=== PATIENT | female | born 1975 | race Caucasian/White ===

== ENCOUNTER 2018-11-29 20:00 | Emergency (ER) | payer SELFPAY ==
--- OUTSIDE RECORDS SUMMARY | 2018-11-29 20:02 | XMS REPORT ---
:1975 [facility] Address [address] [place] [address] [place] [id number] Care Team Providers Name Role Phone Unavailable Unavailable Unavailable Problems This patient has no known problems. Allergies, Adverse Reactions, Alerts This patient has no known allergies or adverse reactions. Medications This patient has no known medications.
[2018-11-29] MEDS ORDERED: NA CHLORIDE 0.9% 1,000 ML ONE (20:45)
[2018-11-29 21:03] LABS: Absolute Lymphocytes (CBC) 2.3 K/uL (0.7-4.9); Absolute Monocytes 0.6 K/uL (0.1-1.3); Absolute Neutrophil 2.7 K/uL (1.8-8.0); Basophils % 0.9 % (0-1.3); Eosinophils % 0.5 % (0-4.4); Hematocrit 28.4 % (36.0-45.0); MPV 8.6 fL (7.6-11.3); Monocytes % 11.1 % (3.3-12.3); RBC Red Blood Cell Count 3.82 M/uL (3.86-4.86)
--- NOTE | 2018-11-29 21:03 | RAD REPORT ---
EXAM DESCRIPTION: US - Transvaginal Study Probe - 11/29/2018 8:56 pm CLINICAL HISTORY: lower abdomen pain Pelvic pain. COMPARISON: <Comparisons> FINDINGS: The uterus is normal in size, shape and echotexture. The uterus measures 9.9 x 7.4 x 5.8 c m. Small 13 x 10 mm anterior wall intramural fibroid. Small fundal intramural fibroid measuring 6 x 6 mm. The endometrial stripe measures 10 mm, normal. Both ovaries are normal in size, shape and echotexture. The right ovary measures 3.5 x 3.0 x 2.5 cm. The left ovary measures 2.8 x 2.1 x 1.9 cm. 3 cm right ovarian follicle noted, likely functional. N o adnexal masses. Normal Doppler blood flow was demonstrated to both ovaries. No significant pelvic ascites. IMPRESSION: Mildly leiomyomatous uterus.
[2018-11-29 21:05] LABS: Protime INR 1.04
[2018-11-29 21:14] LABS: Albumin 3.9 g/dL (3.4-5.0); Bilirubin Direct 0.1 mg/dL (0-0.2); Bilirubin Total 0.5 mg/dL (0.2-1.0); Potassium 3.4 mmol/L (3.5-5.1); Protein, Total 7.3 g/dL (6.4-8.2)
[2018-11-29 21:26] LABS: Urine Bacteria <20 /HPF (<20); Urine Culture Reflex Order NOT NEEDED; Urine RBC >50 /HPF (NONE SEEN)
[2018-11-29 21:27] LABS: Urine Blood 3+ (NEG); Urine Glucose NEGATIVE (NEG); Urine Protein 1+ (NEG); Urine Specific Gravity <1.005 (1.005-1.030)
[2018-11-29 21:34] LABS: Barbiturates NEGATIVE (NEGATIVE); Benzodiazepines NEGATIVE (NEGATIVE); Cocaine NEGATIVE (NEGATIVE); METHAMPHETAM NEGATIVE (NEGATIVE); Methadone NEGATIVE (NEGATIVE); Opiates NEGATIVE (NEGATIVE); Phencyclidine NEGATIVE (NEGATIVE); THC Cannibis NEGATIVE (NEGATIVE)
--- NOTE | 2018-11-29 21:44 | EDPHYS ---
Physician Documentation [facility] Name: Yazmin Monzon Age: 43 yrs Sex: Female : 1975 Arrival Date: 11/29/2018 Time: 20:07 Bed 2 Private MD: ED Physician Justice Correa HPI: 11/29 20:30 This 43 yrs old Female presents to ER via EMS with complaints of Vaginal Pain.cp 20:30 The patient presents with vaginal bleeding that is with clots, lower abdomen pain. cp 20:30 Onset: The symptoms/episode began/occurred 2 day(s) ago. Associated signs and symptoms: cp Pertinent negatives: constipation, diarrhea, dysuria, fever, vomiting. Severity of symptoms: in the emergency department the symptoms are unchanged. The patient's method of control includes nothing. Patient brought to ED by law enforcement for heavy menstrual bleeding. Patient currently in custody for public intoxication. 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 - Social history:: Smoking status: Patient/guardian denies using tobacco. - Ebola Screening: : No symptoms or risks identified at this time. ROS: 20:45 Constitutional: Negative for body aches, chills, fever, poor PO intake. cp 20:45 Eyes: Negative for injury, pain, redness, and discharge. cp 20:45 Cardiovascular: Negative for chest pain, edema, palpitations. 20:45 Respiratory: Negative for cough, shortness of breath, wheezing. 20:45 Abdomen/GI: Positive for abdominal pain, of the right lower quadrant and left lower quadrant, Negative for vomiting, diarrhea, constipation. 20:45 Back: Negative for radiated pain. 20:45 : Positive for vaginal bleeding, Negative for urinary symptoms, flank pain. 20:45 Skin: Negative for rash. 20:45 Neuro: Negative for altered mental status, headache, syncope, weakness. 20:45 All other systems are negative. Exam: 20:50 Constitutional: The patient appears in no acute distress, alert, awake, non-toxic, well cp developed, well nourished. 20:50 Head/Face: Normocephalic, atraumatic. cp 20:50 Eyes: Periorbital structures: appear normal, Conjunctiva: normal, no exudate, no injection, Sclera: no appreciated abnormality, Lids and lashes: appear normal, bilaterally. 20:50 ENT: External ear(s): are unremarkable, Nose: is normal, Mouth: Lips: moist, Oral mucosa: moist, Posterior pharynx: Airway: no evidence of obstruction, patent. 20:50 Neck: ROM/movement: is normal, is supple, without pain, no range of motions limitations, no nuchal rigidity. 20:50 Chest/axilla: Inspection: normal, Palpation: is normal, no crepitus, no tenderness. 20:50 Cardiovascular: Rate: tachycardic, Rhythm: regular. 20:50 Respiratory: the patient does not display signs of respiratory distress, Respirations: normal, no use of accessory muscles, no retractions, no splinting, no tachypnea, labored breathing, is not present, Breath sounds: are clear throughout, no decreased breath sounds, no stridor, no wheezing. 20:50 Abdomen/GI: Inspection: abdomen appears normal, Bowel sounds: active, all quadrants, Palpation: soft, in all quadrants, nontender, in all quadrants, voluntary guarding, is not appreciated, involuntary guarding, is not appreciated. 20:50 Back: CVA tenderness, is absent. 20:50 Skin: no rash present. 20:50 Neuro: Orientation: to person, place, situation, Mentation: able to follow commands, Motor: moves all fours, strength is normal. Vital Signs: 20:07 BP 129 / 83; Pulse 106; Resp 16; Temp 98.2(O); Pulse Ox 100% on R/A; Weight 77.11 kg ak1 (R); Height 5 ft. 10 in. (177.80 cm) (R); Pain 8/10; 21:45 BP 109 / 71; Pulse 103; Resp 16; Temp 98.2; Pulse Ox 100% on R/A; Pain 0/10; ak1 22:08 BP 109 / 72; Pulse 103; Resp 16; Temp 98.1; Pulse Ox 100% on R/A; Pain 0/10; ak1 20:07 Body Mass Index 24.39 (77.11 kg, 177.80 cm) ak1 MDM: 20:18 Patient medically screened. cp 21:00 Differential diagnosis: dysmenorrhea, ectopic , menorrhea, nonspecific cp abdominal pain, pelvic inflammatory disease, uterine fibroids, anemia. 21:42 Data reviewed: vital signs, nurses notes, lab test result(s), radiologic studies, cp ultrasound, I have discussed the patient's presentation/case with the attending Emergency Department Physician; and as a result, I will discharge patient. 21:42 Counseling: I had a detailed discussion with the patient and/or guardian regarding: the cp historical points, exam findings, and any diagnostic results supporting the discharge/admit diagnosis, lab results, radiology results, the need for outpatient follow up, a family practitioner, to return to the emergency department if symptoms worsen or persist or if there are any questions or concerns that arise at home. Response to treatment: the patient's symptoms have markedly improved after treatment. 21:42 ED course: VSS. H/H shows anemia worse today when compared to previous labs but stable cp and not requiring blood transfusion. Will release into custody of law enforcement for continued monitoring and outpatient f/u. 11/29 20:10 Order name: Urine Microscopic Only; Complete Time: 21:31 11/29 21:31 Interpretation: Normal except: URBC >50; SQEPI 5-10. 11/29 20:27 Order name: Basic Metabolic Panel; Complete Time: 21:31 11/29 21:41 Interpretation: Normal except: K 3.4; GFR 85. 11/29 20:27 Order name: CBC with Diff; Complete Time: 21:31 11/29 21:41 Interpretation: Reviewed. 11/29 20:27 Order name: Creatinine for Radiology; Complete Time: 21:31 11/29 20:27 Order name: Hepatic Function; Complete Time: 21:31 11/29 21:42 Interpretation: Reviewed. 11/29 20:27 Order name: Lipase; Complete Time: 21:31 11/29 20:10 Order name: Urine Test (obtain specimen); Complete Time: 21:16 11/29 20:10 Order name: Urine Dipstick-Ancillary (obtain specimen); Complete Time: 21:16 gs 11/29 20:28 Order name: PT-INR; Complete Time: 21:31 cp 11/29 20:28 Order name: Ptt, Activated; Complete Time: 21:31 cp 11/29 20:28 Order name: UDS; Complete Time: 21:41 cp 11/29 20:28 Order name: US Transvaginal Study (Probe); Complete Time: 21:31 cp 11/29 21:24 Order name: Urine Dipstick--Ancillary (enter results); Complete Time: 21:31 ar5 11/29 20:27 Order name: IV Saline Lock; Complete Time: 20:30 cp 11/29 20:27 Order name: Labs collected and sent; Complete Time: 20:30 cp Administered Medications: 20:30 Drug: NS 0.9% 1000 ml Route: IV; Rate: 1 bolus; Site: right antecubital; cc3 22:09 Follow up: IV Status: Completed infusion; IV Intake: 1000ml ak1 Disposition: 11/30 21:59 Co-signature as Attending Physician, Justice Correa MD. Disposition: 11/29/18 21:43 Discharged to Home. Impression: Iron deficiency anemia. - Condition is Stable. - Discharge Instructions: Iron Deficiency Anemia, Adult. - Prescriptions for Ferrous Sulfate 325 mg (65 mg Iron) Oral Tablet - take 1 tablet by ORAL route 2 times per day; 60 tablet. - Medication Reconciliation Form, Thank You Letter, Antibiotic Education, Prescription Opioid Use form. - Follow up: Private Physician; When: 2 - 3 days; Reason: anemia. - Problem is an ongoing problem. - Symptoms have improved. Signatures: Dispatcher [employer] Ewa Craig RN RN ak1 Seamus Dale PA PA cp Justice Correa MD MD Petra Cornell cc3 Corrections: (The following items were deleted from the chart) 11/29 22:09 21:43 11/29/2018 21:43 Discharged to Home. Impression: Iron deficiency anemia. ak1 Condition is Stable. Forms are Medication Reconciliation Form, Thank You Letter, Antibiotic Education, Prescription Opioid Use. Follow up: Private Physician; When: 2 - 3 days; Reason: anemia. Problem is an ongoing problem. Symptoms have improved. cp
--- NOTE | 2018-11-29 21:44 | ER ---
Nurse's Notes [facility] Name: Yazmin Monzon Age: 43 yrs Sex: Female : 1975 Arrival Date: 11/29/2018 Time: 20:07 Bed 2 Private MD: Diagnosis: Iron deficiency anemia Presentation: 11/29 20:19 Presenting complaint: EMS states: pt was arrested at 1730 today for public ak1 intoxication. pt stated she normally takes hydrocodone for her vaginal pain with her menstrual cycles due to endometriosis. pt stated she is currently on her cycle and the amount of vaginal bleeding is WNL for her. pt stated she had 2 Hydrocodone at 0300 but has run out of her medications. pt with 20g to right AC and 100mL NS given in route. Transition of care: [place] [employer]. Onset of symptoms was November 29, 2018. Risk Assessment: Do you want to hurt yourself or someone else? Patient reports no desire to harm self or others. Initial Sepsis Screen: Does the patient meet any 2 criteria? No. Patient's initial sepsis screen is negative. Does the patient have a suspected source of infection? No. Patient's initial sepsis screen is negative. Care prior to arrival: 20g IV to right AC, 100mL NS. 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 - Social history:: Smoking status: Patient/guardian denies using tobacco. - Ebola Screening: : No symptoms or risks identified at this time. Screenin:39 Abuse screen: Denies threats or abuse. Denies injuries from another. Nutritional ak1 screening: No deficits noted. Tuberculosis screening: No symptoms or risk factors identified. Fall Risk None identified. Assessment: 20:36 General: Appears in no apparent distress. Behavior is calm, cooperative, pt refused ak1 sanitary products at [place] [employer]. . Pain: Complains of pain in pelvis. 20:37 Neuro: No deficits noted. Cardiovascular: No deficits noted. Respiratory: No deficits ak1 noted. GI: Patient currently denies nausea, vomiting. : Reports vaginal bleeding that is bright red, moderate flow, pt stated flow of period cycle is WNL. EENT: No signs and/or symptoms were reported regarding the EENT system. Derm: No signs and/or symptoms reported regarding the dermatologic system. Musculoskeletal: No signs and/or symptoms reported regarding the musculoskeletal system. 20:43 Reassessment: Patient appears in no apparent distress at this time. No changes from ak1 previously documented assessment. 20:45 Reassessment: FSBG 85 from EMS. ak1 20:46 Reassessment: ultra sound at bedside. ak1 21:45 Reassessment: Patient appears in no apparent distress at this time. No changes from ak1 previously documented assessment. Patient and/or family updated on plan of care and expected duration. Pain level reassessed. Patient is alert, oriented x 3, equal unlabored respirations, skin warm/dry/pink. Patient states symptoms have improved. Vital Signs: 20:07 BP 129 / 83; Pulse 106; Resp 16; Temp 98.2(O); Pulse Ox 100% on R/A; Weight 77.11 kg ak1 (R); Height 5 ft. 10 in. (177.80 cm) (R); Pain 8/10; 21:45 BP 109 / 71; Pulse 103; Resp 16; Temp 98.2; Pulse Ox 100% on R/A; Pain 0/10; ak1 22:08 BP 109 / 72; Pulse 103; Resp 16; Temp 98.1; Pulse Ox 100% on R/A; Pain 0/10; ak1 20:07 Body Mass Index 24.39 (77.11 kg, 177.80 cm) ak1 ED Course: 20:07 Patient arrived in ED. ak1 20:07 Arm band placed on Patient placed in an exam room, on a stretcher, on pulse oximetry, ak1 Patient notified of wait time. 20:18 Seamus Dale PA is PHCP. cp 20:18 Justice Correa MD is Attending Physician. cp 20:25 Triage completed. ak1 20:32 Ewa Spencer, MARIBEL is Primary Nurse. ak1 20:39 Patient has correct armband on for positive identification. Bed in low position. Call ak1 light in reach. Side rails up X 1. officer at bedside. pt remains in custody. Pulse ox on. NIBP on. pt given clean linens and sanitary pads. 20:39 Maintain EMS IV. Dressing intact. Good blood return noted. Site clean \T\ dry. Gauge \T\ ak 1 site: 20g IV right AC. 20:55 US Transvaginal Study (Probe) In Process Unspecified. EDMS 21:45 No provider procedures requiring assistance completed. ak1 22:08 IV discontinued, intact, bleeding controlled, No redness/swelling at site. Pressure ak1 dressing applied. Administered Medications: 20:30 Drug: NS 0.9% 1000 ml Route: IV; Rate: 1 bolus; Site: right antecubital; cc3 22:09 Follow up: IV Status: Completed infusion; IV Intake: 1000ml ak1 Intake: 22:09 IV: 1000ml; Total: 1000ml. ak1 Outcome: 21:43 Discharge ordered by . cp 21:45 Condition: stable ak1 22:06 Discharged to Law Enforcement ak1 22:06 Discharge instructions given to patient, Instructed on discharge instructions, follow up and referral plans. medication usage, Demonstrated understanding of instructions, follow-up care, medications, Prescriptions given X 1, pt given 2 gowns, extra sanitary pad, deposable panties to use while in [facility]. pt discharge with steady gait to police custody. 22:09 Patient left the ED. ak1 Signatures: Dispatcher [employer] EDMS Ewa Spencer RN RN ak1 Seamus Dale PA PA cp Cordel, Charlene cc3 Corrections: (The following items were deleted from the chart) 22:08 22:08 BP 109 / 22; Pulse 103bpm; Resp 16bpm; Pulse Ox 100% RA; Temp 98.1F; Pain 0/10; ak1 ak1
== END 2018-11-29 22:09 | disposition home or self-care (01) ==
LOC: ER 20:00
DX: D50.9 Iron deficiency anemia, unspecified (principal); N80.9 Endometriosis, unspecified; Z88.0 Allergy status to penicillin
CPT/HCPCS: 36415; 76830; 80048; 80076; 80307; 81003; 81015; 83690; 85025; 85610; 85730; 96360; 96361; 99284; J7030

== ENCOUNTER 2019-04-29 22:41 | Observation (INO) | payer SELFPAY ==
[2019-04-30] MEDS ORDERED: NA CHLORIDE 0.9% 1,000 ML ONE (00:45)
[2019-04-30] MEDS ORDERED: ONDANSETRON 4 MG/2 ML VIAL ONE (00:45)
[2019-04-30 01:16] LABS: Basophils % 0.8 % (0-1.3); Hematocrit 26.9 % (36.0-45.0); Lymphocytes % 13.1 % (15.3-44.8); MPV 8.8 fL (7.6-11.3); RBC Red Blood Cell Count 3.91 M/uL (3.86-4.86)
[2019-04-30 01:19] LABS: Potassium 3.8 mmol/L (3.5-5.1)
[2019-04-30] MEDS ORDERED: PROMETHAZINE 25 MG/ML VIAL ONE (01:34)
[2019-04-30] MEDS ORDERED: METOCLOPRAMIDE 10 MG/2mL INJ ONE (02:25)
[2019-04-30] MEDS ORDERED: DIPHENHYDRAMINE 50 MG/ML VIAL ONE (02:26)
--- NOTE | 2019-04-30 03:10 | EDPHYS ---
Physician Documentation [facility] Name: Yazmin Monzon Age: 44 yrs Sex: Female : 1975 Arrival Date: 04/29/2019 Time: 22:43 Bed 20 Private MD: ED Physician Seamus Salmon HPI: 04/30 01:11 This 44 yrs old Female presents to ER via Ambulatory with complaints of Chest jr8 Pain, Vomiting. 01:11 This 44 yrs old Female presents to ER via Ambulatory with complaints of Chest jr8 Pain, Vomiting. 01:11 The patient presents to the emergency department with nausea, vomiting, 20 times today. jr8 Onset: The symptoms/episode began/occurred today. Associated signs and symptoms: Pertinent negatives: abdominal pain. Severity of symptoms: At their worst the symptoms were mild in the emergency department the symptoms have improved. Pt reports vomiting that began today, 20 or so episodes, not tolerating water by mouth, states she has pain in her chest and abd after vomiting. 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 - Social history:: Smoking status: Patient/guardian denies using tobacco. - Ebola Screening: : Patient denies travel to an Ebola-affected area in the 21 days before illness onset. ROS: 04/30 01:12 Constitutional: Negative for fever, chills, and weight loss, Eyes: Negative for injury, jr8 pain, redness, and discharge, ENT: Negative for injury, pain, and discharge, Neck: Negative for injury, pain, and swelling, Cardiovascular: Negative for chest pain, palpitations, and edema, Respiratory: Negative for shortness of breath, cough, wheezing, and pleuritic chest pain, Back: Negative for injury and pain, MS/Extremity: Negative for injury and deformity, Neuro: Negative for headache, weakness, numbness, tingling, and seizure. Abdomen/GI: Positive for nausea, vomiting, Negative for abdominal pain, diarrhea, constipation. Exam: 01:12 Constitutional: This is a well developed, well nourished patient who is awake, alert, jr8 and in no acute distress. Head/Face: Normocephalic, atraumatic. Chest/axilla: Normal chest wall appearance and motion. Nontender with no deformity. No lesions are appreciated. Cardiovascular: Regular rate and rhythm with a normal S1 and S2. No gallops, murmurs, or rubs. Normal PMI, no JVD. No pulse deficits. Respiratory: Lungs have equal breath sounds bilaterally, clear to auscultation and percussion. No rales, rhonchi or wheezes noted. No increased work of breathing, no retractions or nasal flaring. Abdomen/GI: Soft, non-tender, with normal bowel sounds. No distension or tympany. No guarding or rebound. No evidence of tenderness throughout. MS/ Extremity: Pulses equal, no cyanosis. Neurovascular intact. Full, normal range of motion. Neuro: Awake and alert, GCS 15, oriented to person, place, time, and situation. Cranial nerves II-XII grossly intact. Motor strength 5/5 in all extremities. Sensory grossly intact. Cerebellar exam normal. Normal gait. 01:12 Abdomen/GI: Inspection: abdomen appears normal, Bowel sounds: normal, Palpation: abdomen is soft and non-tender, in all quadrants, Indicators: McBurney's point is not tender, Restrepo's sign is negative, Rovsing's sign is negative, Obturator sign is negative, Psoas sign is negative. Vital Signs: 04/29 22:49 BP 120 / 77; Pulse 103; Resp 20; Temp 98.8; Pulse Ox 100% on R/A; Weight 79.38 kg (R); aj1 Height 5 ft. 10 in. (177.80 cm) (R); Pain 02/17; 04/30 01:30 BP 111 / 58; Pulse 85; Resp 16; Temp 98.0; Pulse Ox 100% on R/A; ak1 02:11 BP 127 / 70; Pulse 82; Pulse Ox 98% on R/A; ak1 02:31 BP 122 / 70; Pulse 79; Resp 16; Pulse Ox 100% on R/A; ak1 03:50 BP 119 / 64; Pulse 85; Resp 16; Temp 98; Pulse Ox 99% on R/A; ak1 04/29 22:49 Body Mass Index 25.11 (79.38 kg, 177.80 cm) aj1 MDM: 00:34 Patient medically screened. jr8 02:08 Data reviewed: vital signs, nurses notes, lab test result(s), and as a result, I will jr8 admit patient. Data interpreted: Pulse oximetry: on room air is 100 %. Interpretation: normal. Counseling: I had a detailed discussion with the patient and/or guardian regarding: the historical points, exam findings, and any diagnostic results supporting the discharge/admit diagnosis, lab results, the need for further work-up and treatment in the hospital. ED course: Pt unable to tolerate even small amounts of water PO in the Ed despite multiple rounds of different meds, denies abd pain still, denies chest pain, pt amendable to coming in to the hospital for intractable nausea and vomiting.. 03:09 Physician consultation: Venkatesh Taylor was called at 03:09, was contacted at 03:09, [facility] regarding admission, to the telemetry unit. and will see patient would like further tests performed. 04/30 00:46 Order name: CBC with Diff; Complete Time: 01:18 8 04/30 00:46 Order name: BMP; Complete Time: 01:20 8 04/30 03:03 Order name: Lipase jr8 04/30 03:03 Order name: LFT's 8 04/30 03:03 Order name: Troponin (emerg Dept Use Only) [facility] 04/30 03:25 Order name: Urine Dipstick--Ancillary (enter results) mw2 04/29 23:04 Order name: Chest Pa And Lat (2 Views) XRAY 1 04/30 03:37 Order name: Urine --Ancillary (enter results) ds4 04/29 23:04 Order name: EKG - Nurse/Tech; Complete Time: 23:04 1 04/30 03:14 Order name: Urine Dipstick-Ancillary (obtain specimen); Complete Time: 03:36 jr8 04/30 03:14 Order name: Urine Test (obtain specimen); Complete Time: 03:36 8 Administered Medications: 00:47 Not Given (Other Intervention Used): Zofran 4 mg PO once wa1 01:03 Drug: NS 0.9% 1000 ml Route: IV; Rate: 1000 ml; Site: left antecubital; ak1 03:03 Follow up: IV Status: Completed infusion; IV Intake: 1000ml ak1 01:03 Drug: Zofran 4 mg Route: IVP; Site: left antecubital; ak1 01:37 Follow up: Response: No adverse reaction; Nausea unchanged; Nausea unchanged, provider ak1 notified. 01:37 Drug: Phenergan 12.5 mg Route: IVP; Site: left antecubital; ak1 02:31 Follow up: Response: Nausea unchanged ak1 02:30 Drug: Benadryl 25 mg Route: IVP; Site: left antecubital; ak1 03:02 Follow up: Response: No adverse reaction ak1 02:31 Drug: Reglan 10 mg Route: IVP; Site: left antecubital; ak1 03:02 Follow up: Response: No adverse reaction ak1 03:02 Follow up: Response: No adverse reaction ak1 03:17 Drug: ProTONIX 40 mg Route: IVP; Site: left antecubital; ak1 03:17 Follow up: Response: No adverse reaction ak1 Disposition: 08:32 Co-signature as Attending Physician, Seamus Salmon MD I agree with the assessment and jayden plan of care. Disposition: 04/30/19 03:08 Hospitalization ordered by Venkatesh Taylor for Observation. Preliminary diagnosis is Nausea and vomiting - Intractable. - Bed requested for Telemetry/MedSurg (observation). - Status is Observation. ak1 - Condition is Stable. - Problem is new. - Symptoms are unchanged. UTI on Admission? No Signatures: Dispatcher [employer] EDTX Glo Cordero RN RN aj1 Anderson, Corey, MD MD cha Roszak, Josh, PA PA Ewa Rogel RN RN ak1 Kendra Mcgregor RN RN cg Corrections: (The following items were deleted from the chart) 03:07 02:08 Data reviewed: vital signs, nurses notes, lab test result(s), and as a result, I jose will discharge patientjose 03:07 02:08 Counseling: I had a detailed discussion with the patient and/or guardian jose regarding: the historical points, exam findings, and any diagnostic results supporting the discharge/admit diagnosis, lab results, the need for outpatient follow up, a family practitioner, jose 03:07 02:08 ED course: Pt tolerating PO in ED, discussed the anemia which patient has a known jr8 history secondary the menorrhagia. Discussed importance of taking iron supplements. Patient denies abdominal pain, chest pain, shortness of breath. Return precautions given, sent home with RX for phenergen per pt preference. Pt to FU with PCP. jr8 03:47 03:08 Hospitalization Ordered by Venkatesh Taylor for Observation. Preliminary diagnosis cg is Nausea and vomiting - Intractable. Bed requested for Telemetry/MedSurg (observation). Status is Observation. Condition is Stable. Problem is new. Symptoms are unchanged. UTI on Admission? No. jr8 04:33 03:47 04/30/2019 03:08 Hospitalization Ordered by Venkatesh Taylor for Observation. ak1 Preliminary diagnosis is Nausea and vomiting - Intractable. Bed requested for Telemetry/MedSurg (observation). Status is Observation. Condition is Stable. Problem is new. Symptoms are unchanged. UTI on Admission? No. cg
--- NOTE | 2019-04-30 03:10 | ER ---
Nurse's Notes [facility] Name: Yazmin Monzon Age: 44 yrs Sex: Female : 1975 Arrival Date: 04/29/2019 Time: 22:43 Bed 20 Private MD: Diagnosis: Nausea and vomiting-Intractable Presentation: 04/29 22:48 Presenting complaint: Patient states: "I was cleaning a house 2 days ago, a lot of deep aj1 cleaning and then I started getting sick. I've been really sick the past 24 hours throwing up, and then today my chest started hurting" Reports midsternal chest pain that's worse when she takes a deep breath. Reports that the pain is also worse when she vomits. Transition of care: patient was not received from another setting of care. Onset of symptoms was April 29, 2019. Risk Assessment: Do you want to hurt yourself or someone else? Patient reports no desire to harm self or others. Initial Sepsis Screen: Does the patient meet any 2 criteria? HR > 90 bpm. No. Patient's initial sepsis screen is negative. Does the patient have a suspected source of infection? No. Patient's initial sepsis screen is negative. Care prior to arrival: None. 22:48 Method Of Arrival: Ambulatory aj1 22:48 Acuity: GEORGETTE 3 aj1 Triage Assessment: 22:49 General: Appears in no apparent distress. comfortable, Behavior is calm, cooperative, aj1 appropriate for age. Pain: Complains of pain in mid-sternal area Pain currently is 8 out of 10 on a pain scale. Neuro: Level of Consciousness is awake, alert, obeys commands. Cardiovascular: Reports chest pain, Denies palpitations, shortness of breath, Patient's skin is warm and dry. Respiratory: Airway is patent Respiratory effort is even, unlabored, Respiratory pattern is regular, symmetrical, Denies cough, shortness of breath. GI: Reports nausea, vomiting. 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 - Social history:: Smoking status: Patient/guardian denies using tobacco. - Ebola Screening: : Patient denies travel to an Ebola-affected area in the 21 days before illness onset. Screenin/21 01:04 Abuse screen: Denies threats or abuse. Denies injuries from another. Nutritional ak1 screening: No deficits noted. Tuberculosis screening: No symptoms or risk factors identified. Fall Risk None identified. Assessment: 01:04 General: Appears in no apparent distress. Behavior is calm, cooperative. Pain: Pain ak1 does not radiate. Pain began 1 day ago. Neuro: No deficits noted. Cardiovascular: Reports chest pain, chest pain when vomiting. Respiratory: No deficits noted. GI: Abdomen is flat, non-distended, Bowel sounds present X 4 quads. Reports nausea, tolerance of fluids, tolerance of food, vomiting. : No signs and/or symptoms were reported regarding the genitourinary system. EENT: No signs and/or symptoms were reported regarding the EENT system. Derm: No signs and/or symptoms reported regarding the dermatologic system. Musculoskeletal: No signs and/or symptoms reported regarding the musculoskeletal system. 02:11 Reassessment: pt attempting ice chips, will reassess. ak1 03:01 Reassessment: pt continues to vomit. pt informed of need for possible admit. ak1 04:07 Reassessment: report given to Brittney LÓPEZ for 207. ak1 Vital Signs: 04/29 22:49 BP 120 / 77; Pulse 103; Resp 20; Temp 98.8; Pulse Ox 100% on R/A; Weight 79.38 kg (R); aj1 Height 5 ft. 10 in. (177.80 cm) (R); Pain 02/17; 04/30 01:30 BP 111 / 58; Pulse 85; Resp 16; Temp 98.0; Pulse Ox 100% on R/A; ak1 02:11 BP 127 / 70; Pulse 82; Pulse Ox 98% on R/A; ak1 02:31 BP 122 / 70; Pulse 79; Resp 16; Pulse Ox 100% on R/A; ak1 03:50 BP 119 / 64; Pulse 85; Resp 16; Temp 98; Pulse Ox 99% on R/A; ak1 04/29 22:49 Body Mass Index 25.11 (79.38 kg, 177.80 cm) aj1 ED Course: 04/29 22:43 Patient arrived in ED. ds1 22:49 Triage completed. aj1 22:49 Arm band placed on Patient placed in an exam room. EKG completed in triage. Results aj1 shown to . 04/30 00:34 Ewa Spencer, RN is Primary Nurse. ak1 00:34 Miguel A Riley PA is PHCP. jr8 00:34 Seamus Salmon MD is Attending Physician. jr8 00:55 Missed attempt(s): 22 gauge in left forearm. Bleeding controlled, band aid applied, aa1 catheter tip intact. 01:03 Inserted saline lock: 20 gauge in left antecubital area, using aseptic technique. aa1 01:04 Patient has correct armband on for positive identification. Bed in low position. Call ak1 light in reach. Side rails up X 1. Pulse ox on. NIBP on. 01:04 Initial lab(s) drawn, by me, sent to lab. EKG done, by ED staff, reviewed by Seamus Salmon MD. Missed attempt(s): 22 gauge in right antecubital area. Bleeding controlled, band aid applied, catheter tip intact. 01:04 No provider procedures requiring assistance completed. Patient maintains SpO2 ak1 saturation greater than 95% on room air. 01:13 Chest Pa And Lat (2 Views) XRAY In Process Unspecified. EDMS 03:07 Venkatesh Taylor is Hospitalizing Provider. jr8 03:36 Urine Dipstick--Ancillary (enter results) Sent. ds4 03:48 Patient admitted, IV remains in place. ak1 Administered Medications: 00:47 Not Given (Other Intervention Used): Zofran 4 mg PO once ak1 01:03 Drug: NS 0.9% 1000 ml Route: IV; Rate: 1000 ml; Site: left antecubital; ak1 03:03 Follow up: IV Status: Completed infusion; IV Intake: 1000ml ak1 01:03 Drug: Zofran 4 mg Route: IVP; Site: left antecubital; ak1 01:37 Follow up: Response: No adverse reaction; Nausea unchanged; Nausea unchanged, provider [email or web address] notified. 01:37 Drug: Phenergan 12.5 mg Route: IVP; Site: left antecubital; ak1 02:31 Follow up: Response: Nausea unchanged ak1 02:30 Drug: Benadryl 25 mg Route: IVP; Site: left antecubital; ak1 03:02 Follow up: Response: No adverse reaction ak1 02:31 Drug: Reglan 10 mg Route: IVP; Site: left antecubital; ak1 03:02 Follow up: Response: No adverse reaction ak1 03:02 Follow up: Response: No adverse reaction ak1 03:17 Drug: ProTONIX 40 mg Route: IVP; Site: left antecubital; ak1 03:17 Follow up: Response: No adverse reaction ak1 Intake: 03:03 IV: 1000ml; Total: 1000ml. ak1 Outcome: 03:08 Decision to Hospitalize by Provider. jr8 03:48 Admitted to Med/surg accompanied by tech, via wheelchair, room 207, with chart. ak1 03:48 Condition: stable 03:48 Instructed on the need for admit. 04:33 Patient left the ED. ak1 Signatures: Dispatcher [employer] EDGlo Leos, RN RN aj1 Lizette Khan, RN RN aa1 Laura Ireland ds1 Miguel A Riley PA PA jr8 Chad Andrew ds4 Ewa Spencer RN RN ak1
[2019-04-30] MEDS ORDERED: PANTOPRAZOLE 40 MG INJ ONE (03:13)
[2019-04-30 03:30] LABS: ALT/SGPT 24 U/L (12-78); AST/SGOT 30 U/L (15-37); Albumin 4.5 g/dL (3.4-5.0); Alkaline Phosphatase 78 U/L (45-117); Bilirubin Direct 0.2 mg/dL (0-0.2); Bilirubin Total 0.8 mg/dL (0.2-1.0); Lipase 65 U/L (73-393); Protein, Total 8.6 g/dL (6.4-8.2); Troponin (Emerg Dept Use Only) < 0.02 ng/mL (0.0-0.045)
--- NOTE | 2019-04-30 03:36 | P.HP ---
Certification for Inpatient Patient admitted to: Observation With expected LOS: <2 Midnights Practitioner: I am a practitioner with admitting privileges, knowledge of patient current condition, hospital course, and medical plan of care. Services: Services provided to patient in accordance with Admission requirements found in Title 42 Section 412.3 of the Code of Federal Regulations Patient History Date of Service: 04/30/19 Reason for admission: Nausea and vomited History of Present Illness: 44-year-old woman with a history iron deficiency anemia, history of menorrhalgia presented to the emergency department with a complaint of nausea and vomiting which has been present for about 24 hours. Patient reports several bouts of vomiting, not able to hold any food or drink in. She denied any sick contacts. She denied any diarrhea or constipation. She denied any fever. She denied any history of peptic ulcer. She denied any dysuria or urinary frequency. She was still vomiting in the ED. BMP is unremarkable, normal liver enzymes and bilirubin, lipase within normal limit. CBC reveal microcytic anemia, no leukocytosis. UA is negative for UTI. Patient is placed under observation for further management. Allergies Penicillins Allergy (Verified 04/30/19 04:28) Unknown Pe Allergy (Uncoded 09/07/16 12:08) Unknown Home Medications: NK [No Home Meds] 04/30/19 - Past Medical/Surgical History -: Menorrhalgia -: Iron deficiency anemia -: Tubal ligation - Social History Smoking Status: Never smoker Alcohol use: Yes CD- Drugs: No Place of Residence: Home Review of Systems Other: General: No fever, no malaise, no unintentional weight loss. Eyes: No eye discharge, Respiratory: No cough, no shortness of breath. CVS: No chest pain, no palpitation, no lightheadedness. Genitourinary: No incontinence, no hematuria. Musculoskeletal: No joint pains, or joint swelling, no gait instability. Neurology: No headache, no asymmetric, weakness, no problem with swallowing. Except as documented, all other systems reviewed and negative. Physical Examination - Physical Exam General: Alert, In no apparent distress, Oriented x3 HEENT: Atraumatic, Normocephalic, Mucous membr. moist/pink Neck: Supple, JVD not distended, No Thyromegaly Respiratory: Clear to auscultation bilaterally, Normal air movement Cardiovascular: No edema, Normal pulses, Regular rate/rhythm, No murmurs Capillary refill: <2 Seconds Gastrointestinal: Normal bowel sounds, Soft and benign, Non-distended, No tenderness Musculoskeletal: No swelling, No erythema Integumentary: No rashes, No erythema Neurological: Normal speech, Normal strength at 5/5 x4 extr, Cranial nerves 3- 12 intact - Studies Laboratory Data (last 24 hrs) 04/30/19 00:55: Total Bilirubin 0.8, AST 30, ALT 24, Alkaline Phosphatase 78, Lipase 65 L 04/30/19 00:55: Sodium 139, Potassium 3.8, BUN 20 H, Creatinine 0.85, Glucose 83 04/30/19 00:55: WBC 7.8, Hgb 8.5 L, Hct 26.9 L, Plt Count 265 Assessment and Plan - Problems (Diagnosis) (1) Intractable nausea and vomiting Current Visit: Yes Status: Acute (2) Iron deficiency anemia Current Visit: Yes Status: Acute - Plan Place under observation Supportive measures with IV normal saline and antiemetics. Trial of IV protonix Urine toxicology screen. Clear liquid diet as patient will tolerate. GI consult if symptoms do not improve within the next 24 hours. - Advance Directives Does patient have a Living Will: No Does patient have a Durable POA for Healthcare: No
[2019-04-30 03:49] LABS: Urine Specific Gravity >1.030 (1.005-1.030)
[2019-04-30 03:49] LABS: Urine Blood 2+ (NEG); Urine Glucose NEGATIVE (NEG); Urine Protein 1+ (NEG); Urine Specific Gravity >1.030 (1.005-1.030); Urine pH 5.5 (5.0-7.0)
[2019-04-30 04:28] VITALS: BMI 24.1
[2019-04-30] MEDS ORDERED: ONDANSETRON 4 MG/2 ML VIAL IV PRN (04:35)
[2019-04-30] MEDS ORDERED: SODIUM CHLORIDE 0.9% 10ML INJ IV PRN (04:35)
[2019-04-30] MEDS ORDERED: PROMETHAZINE 25 MG/ML VIAL IV ONE (05:07)
[2019-04-30] MEDS: NA CHLORIDE 0.9% 1,000 ML IV SCH ×2 (05:12→14:35)
[2019-04-30 08:30] VITALS: O2SAT 98
--- NOTE | 2019-04-30 08:56 | EKG ---
Test Date: 2019-04-29 Test Time: 23:01:28 Matcher Operator: JONNIE MEASUREMENT RESULTS: Intervals: Rate: 110 ME: 130 QRSD: 72 QT: 320 QTc: 433 Rufus: P: 74 ME: 130 QRS: 84 T: 67 INTERPRETIVE STATEMENTS: Sinus tachycardia Otherwise normal ECG No previous ECG available for comparison Electronically Signed On 04-30-19 08:55:24 CDT by Elan Landaverde
[2019-04-30] MEDS ORDERED: PANTOPRAZOLE 40 MG INJ IVP SCH (09:00)
[2019-04-30] MEDS ORDERED: ENOXAPARIN 40 MG/0.4 ML SQ SCH (09:00)
[2019-04-30] MEDS ORDERED: POTASSIUM CL SA 10 MEQ TAB PO ONE (09:00)
--- NOTE | 2019-04-30 09:20 | RAD REPORT ---
EXAM DESCRIPTION: Herlinda Celis (2 Views)04/30/2019 1:14 am CLINICAL HISTORY: Chest pain COMPARISON: None FINDINGS: The lungs appear clear of acute infiltrate. The heart is normal size IMPRESSION: No acute abnormalities displayed
[2019-04-30 12:35] VITALS: BP 125/57; TEMP 97.9
--- NOTE | 2019-04-30 20:11 | DS ---
Date of Discharge: 04/30/2019 Discharge Diagnoses: 1.Intractable nausea, vomiting, resolved. 2.Iron deficiency anemia, stable. Hospital Course: Patient is a 44-year-old female with past medical history of iron deficiency anemia due to menometrorrhagia, comes in due to nausea and vomiting. Patient started on IV fluids, was giv en symptomatic treatment. She denied any urinary symptoms. No fevers or chills, likely related to v iral gastroenteritis. Her UA was negative. She only had trace leukocyte esterase, no bacteria. Pre gnancy test was negative, likely asymptomatic bacteriuria. Patient's chest x-ray was clear. Patient had EKG done also which showed sinus tachycardia, overall patient did well, she was able to tolerate a clear liquid diet which was advanced. She did well with GI soft diet. She was then cleared for d ischarge and was sent home in a stable condition. Activity: As tolerated. Medications: As per medication reconciliation list. Followup: Follow up with primary care physician in 2-3 days. Return to ER for worsening condition. Diet: [place]. Physical Examination: General: Awake, alert, oriented x3, in no acute distress. CV: S1-S2. No murmurs. Respiratory: Moving air well bilaterally. No wheezing. Gastrointestinal: Abdomen is soft, nontender, nondistended. Positive bowel sounds. Extremities: No clubbing, cyanosis, or edema. Neurologic: Nonfocal. SA/MODL Voice ID: [id number] Report ID: [id number]
--- OUTSIDE RECORDS SUMMARY | 2019-05-20 03:42 | XMS REPORT ---
:1975 [facility] Address [address] [place] [address] [place] [id number] Care Team Providers Name Role Phone Unavailable Unavailable Unavailable Problems This patient has no known problems. Allergies, Adverse Reactions, Alerts This patient has no known allergies or adverse reactions. Medications This patient has no known medications.
== END 2019-04-30 15:44 | disposition home or self-care (01) ==
LOC: ER 22:41 → ERHOLD 04-30 03:51 → 2ND 04-30 04:01
PROVIDERS: ADMIT Internal Medicine; ATTEND Internal Medicine
DX: R11.2 Nausea with vomiting, unspecified (principal); D50.9 Iron deficiency anemia, unspecified; Z88.0 Allergy status to penicillin
CPT/HCPCS: 36415; 71046; 80048; 80076; 81003; 81025; 83690; 84443; 84484; 85025; 93005; 94760; 96361; 96374; 96375; 99285; C9113; G0378; J1200; J1650; J2405; J2550; J2765; J7030

== ENCOUNTER 2021-01-14 11:50 | Inpatient (IN) | payer SELFPAY ==
--- NOTE | 2021-01-14 12:49 | RAD REPORT ---
EXAM DESCRIPTION: CT - Head C Spine Mpr Wo Con - 01/14/2021 12:38 pm CLINICAL HISTORY: syncope, head injury COMPARISON: No comparisons TECHNIQUE: All CT scans are performed using dose optimization technique as appropriate and may inclu de automated exposure control or mA/KV adjustment according to patient size. FINDINGS: No intracranial hemorrhage, hydrocephalus or extra-axial fluid collection.No areas of brai n edema or evidence of midline shift. Mild thickening within the left maxillary sinus. Left-sided manny bullosa with rightward nasal septa l deviation. The calvarium is intact. No acute fracture or traumatic malalignment of the cervical spine is identified. Mild degenerative ch anges including small posterior disc osteophyte complexes and uncovertebral joint hypertrophy that re sults in neural foraminal narrowing which is severe on the left at C4-5. No central spinal stenosis i s appreciated. IMPRESSION: 1. No acute intracranial abnormality or skull fracture. 2. No fracture or traumatic malalignment of the cervical spine.
[2021-01-14 13:20] LABS: Absolute Lymphocytes (CBC) 1.7 K/uL (0.7-4.9)
[2021-01-14 13:23] LABS: Basophils % 0.9 % (0-1.3); Lymphocytes % 35.4 % (15.3-44.8); MPV 8.2 fL (7.6-11.3); RBC Red Blood Cell Count 1.96 M/uL (3.86-4.86)
[2021-01-14 13:24] LABS: ALT/SGPT 18 U/L (12-78); AST/SGOT 15 U/L (15-37); Albumin 3.1 g/dL (3.4-5.0); Alkaline Phosphatase 50 U/L (45-117); BUN Blood Urea Nitrogen 13 mg/dL (7-18); Bicarbonate 27 mmol/L (21-32); Bilirubin Direct < 0.1 mg/dL (0-0.2); Bilirubin Total 0.2 mg/dL (0.2-1.0); Glucose Level 111 mg/dL (74-106); NT PRO-BNP 20 pg/mL (<125); Potassium 3.8 mmol/L (3.5-5.1); Sodium Level 139 mmol/L (136-145); Troponin (Emerg Dept Use Only) < 0.02 ng/mL (0.0-0.045)
[2021-01-14 13:29] LABS: Hematocrit 13.6 % (36.0-45.0)
[2021-01-14 13:39] LABS: Protime INR 0.97
[2021-01-14] MEDS ORDERED: NA CHLORIDE 0.9% 500 ML ONE (14:49)
[2021-01-14] MEDS ORDERED: WATER FOR INJ,STERILE 10 ML ONE (15:00)
[2021-01-14] MEDS ORDERED: DIPHENHYDRAMINE 50 MG/ML VIAL ONE (15:00)
[2021-01-14] MEDS ORDERED: HYDROCORTISONE SUC 100 MG INJ ONE (15:00)
[2021-01-14] MEDS ORDERED: ACETAMINOPHEN 325 MG TABLET ONE (15:00)
--- OUTSIDE RECORDS SUMMARY | 2021-01-14 15:27 | XMS REPORT | Continuity of Care Document ---
:1975 Author Organization [facility] [place] [facility] t Address [address] [place] [address] Care Team Providers Name Role Phone Steven Griffin MD Primary Care Physician Singer SALGUERO Attending Clinician Lore Vitale MD Attending Clinician Problems Condition Condition Condition Status Onset Resolution Last Treating Co mments Source Name Details Category Date Date Treatment Clinician Date Screening Screening Disease Active Overview: Univers for for 03-15 Added ity of colorectal colorectal 00:00: automatic [place] cancer cancer 00 ally from Medical request Branch for surgery [id number] Elderly Elderly Disease Active Overview: Univ ers multigravi multigravi 01-22 ICD10 it y of da da 00:00: Diagnosis [place] delivered delivered 00 Term Medi cr House Mother Branch Utility Post term Post term Disease Active Overview: Univers , , 01-22 ICD10 it y of delivered delivered 00:00: [place] 00 Term Medical House Mother Branch Utility Tubal Tubal Disease Active Univers ligation ligation 01-20 ity of status status 00:00: [place] 00 Medical Branch First First Disease Active Overview: Univer s degree degree 13 ICD10 ity of perineal perineal 00:00: Diagnosis [place] as laceration laceration 00 Term Me dical during during House Mother Branch delivery delivery Utility Disease Active U nivers care and care and 01-20 ity of examinatio examinatio [place] n n 00 Medical immediatel immediatel Br anch y after y after delivery delivery Multiparit Multiparit Disease Resolve 2008-01-22 Univers y y d 7 00:00:00 ity of 00:00: [place] 00 Medical Branch Cord Cord Disease Resolve 2008-01-22 Univ ers around around d 7- 00:00:00 ity of neck, with neck, with 00:00: [place] compressio compressio 00 Me dical n, n, Branch complicati complicati ng labor ng labor and and delivery, delivery, delivered delivered Delayed Delayed Disease Resolve 2008-01-22 Un brendan delivery delivery d 01-20 00:00:00 ity of after after 00:00: [place] artificial artificial 00 Me dical rupture of rupture of Br anch membranes, membranes, delivered delivered Family Family Disease Resolve 2008-01-22 2008-01-22 Univers history of history of d 5-10 00:00:00 14:15:20 ity of diabetes diabetes 00:00: [place] mellitus mellitus 00 Medica l Branch Family Family Disease Resolve 2008-01-22 2008-01-22 Univers history of history of d 5-10 00:00:00 14:15:20 ity of genetic genetic 00:00: [place] disease disease 00 Medical carrier carrier Branch Personal Personal Disease Resolve 2008-01-22 2008-01-22 Univers history of history of d 5-10 00:00:00 14:15:20 ity of allergy to allergy to 00:00: [place] penicillin penicillin 00 Me dical Branch Abnormalit Abnormalit Disease Resolve 2008-01-21 2015-04-11 Univers y of y of d 01-20 00:00:00 22:49:28 ity of labor, labor, 00:00: [place] antepartum antepartum 00 Me dical Branch Urinary Urinary Disease Resolve 2008-01-21 2008-01-21 Univers tract tract d 5-10 00:00:00 14:28:21 ity of infection, infection, 00:00: [place] site not site not 00 Medica l specified specified Bran ch Asymptomat Asymptomat Disease Resolve 2008-01-21 2008-01-21 Univers ic ic d 5-10 00:00:00 14:28:21 ity of varicose varicose 00:00: [place] veins veins 00 Medical Branch Other Other Disease Resolve 2008-01-21 2008-01-21 Univers abnormal abnormal d 11-17 00:00:00 14:28:21 it y of glucose glucose 00:00: [place] 00 Medical Branch Overweight Overweight Disease Resolve 2008-01-21 2015-04-11 Univers d - 00:00:00 22:46:27 ity of 00:00: [place] 00 Medical Branch Other sign Other sign Disease Resolve 2008-01-21 2008-01-21 Univers and and d 11-17 00:00:00 14:28:21 ity of symptom in symptom in 00:00: [place] breast breast 00 Medical Branch Other Other Disease Resolve 2008-01-21 2008-01-21 Univers malaise malaise d 11-17 00:00:00 14:28:21 ity of and and 00:00: [place] fatigue fatigue 00 Medical Branch Abnormal Abnormal Disease Resolve 2008-01-21 2008-01-21 Univers weight weight d 11-17 00:00:00 14:28:21 ity of gain gain 00:00: [place] 00 Medical Branch Need for Need for Disease Resolve 2008-01-21 2008-01-21 Univers prophylact prophylact d 11-17 00:00:00 14:28:21 ity of ic ic 00:00: [place] vaccinatio vaccinatio 00 Me dical n and n and Branch inoculatio inoculatio n against n against influenza influenza History of History of Disease Resolve 2008-01-21 2015-04-11 Univers urinary urinary d 11-17 00:00:00 22:46:27 ity of tract tract 00:00: [place] infection infection 00 [facility] Branch History of History of Disease Resolve 2008-01-21 2015-04-11 Univers cardiovasc cardiovasc d 5- 00:00:00 22:46:27 ity of ular ular 00:00: [place] disorder disorder 00 Medica l Branch Alcoholism Alcoholism Disease Resolve 2008-01-21 2008-01-21 Univers in family in family d 5- 00:00:00 14:28:21 ity of 00:00: [place] 00 Medical Branch Supervisio Supervisio Disease Resolve 2008-01-21 2008-01-21 Univers n of other n of other d 5-10 00:00:00 14:28:21 ity of normal normal 00:00: [place] 00 Medi cr Branch Disease Resolve 2008-01-21 2008-01-21 Univers with with d 5-10 00:00:00 14:28:21 ity of history of history of 00:00: [facility] 00 Medica l Branch Encounter Encounter Disease Resolve 2008-01-21 2015-04-11 Univers for for d 5-10 00:00:00 22:46:27 [place] of 00:00[place] screening screening 00 Medi cr of mother of mother Bran ch Allergies, Adverse Reactions, Alerts Allergy Allergy Status Severity Reaction(s) Onset Inactive Treating Comm ents Source Name Type Date Date Clinician Lionel Pottsensi Active Unknown - Uni vers ins ty to See comments 03-08 ity of adverse 00:00: [place] reaction 00 Medical s Branch Social History Social Habit Start Date Stop Date Quantity Comments Source Exposure to Not sure [facility] SARS-CoV-2 [facility] (event) [place] Tobacco use and 2018-10-25 2018-10-25 Never used Universit y of exposure 00:00:00 00:00:00 [facility] [place] [facility] Alcohol intake 2018-10-25 2018-10-25 Current drinker Unive rsity of 00:00:00 00:00:00 of alcohol [facility] (finding) [place] Alcohol Comment 2013-04-03 2013-04-03 wine 1 glass per Uni versity of 00:00:00 00:00:00 evening [facility] [place] [facility] Sex Ass[birth year] At [birth year] Universit y of 00:00:00 00:00:00 [facility] [place] [facility] Smoking Status Start Date Stop Date Source Never smoker [facility] Medications Ordered Filled Start Stop Current Ordering Indication Dosage Frequency Signature Comments Components Source Medication Medication Date Date Medication? Clinician (SIG) Name Name naproxen Yes Abrasion of 550mg Take 1 Univers sodium 11-13 left knee, tablet by it y of (ANAPROX 00:00: initial mouth 2 [place] as DS) 550 mg 00 encounter (two) Med ical tablet times Branch daily with meals. miSOPROStol 2017-07 Yes 200ug Take 1 Uni vers 200 mcg 0-10 tablet by ity of tablet 00:00: mouth [place] 00 SEE-INSTRU Medical CTIONS. Branch Take one tab the night before and one tab the morning of procedure miSOPROStol 2018-1 Yes 200ug Take 1 Uni vers 200 mcg 0-10 tablet by ity of tablet 00:00: mouth [place] 00 SEE-INSTRU Medical CTIONS. Branch Take one tab the night before and one tab the morning of procedure diclofenac 2018-0 Yes 75mg Take 1 Unive rs 75 mg EC 9-06 tablet by ity of tablet 00:00: mouth 2 [place] 00 (two) Medical times Branch daily with meals. diclofenac 2018-0 Yes 75mg Take 1 Unive rs 75 mg EC 9-06 tablet by ity of tablet 00:00: mouth 2 [place] 00 (two) Medical times Branch daily with meals. peg-electro 2018-0 Yes Take as Uni vers lyte soln 9-04 directed ity of 236-22.74-6 00:00: [place] .74 -5.86 00 Medical gram Branch solution peg-electro 2018-0 Yes Take as Uni vers lyte soln 9-04 directed ity of 236-22.74-6 00:00: [place] .74 -5.86 00 Medical gram Branch solution acetaminoph 2018-[address] 325mg Take 325 Univers en 8-29 scan, mg by ity of (TYLENOL) 16:12: bladder [place] 325 mg 13 every 6 Medical tablet (six) Branch hours as needed. acetaminoph 2018-[address] 325mg Take 325 Univers en 8-29 scan, mg by ity of (TYLENOL) 16:12: bladder [place] 325 mg 13 every 6 Medical tablet (six) Branch hours as needed. phentermine 2018-0 Yes Abdominal 37.5mg Take 37.5 Univers 37.5 mg 8-29 pain, mg by ity of capsule 15:40: acute, left mouth [place] 58 lower every Medical quadrant morning. Branch phentermine 2018-0 Yes Abdominal 37.5mg Take 37.5 Univers 37.5 mg 8-29 pain, mg by ity of capsule 15:40: acute, left mouth [place] 58 lower every Medical quadrant morning. Branch medroxyPROG 2018-0 Yes 10mg Take 1 Univ ers ESTERone 8-29 tablet by ity of (PROVERA) 00:00: mouth [place] 10 mg 00 daily. Medical tablet Branch LOESTRIN FE Yes 1{tbl} Take 1 Un brendan (LOESTRIN 8-29 tablet by ity o f FE 07/30) 1 00:00: mouth [place] mg-20 mcg 00 daily. Medical (21)/75 mg Branch (7) tablet medroxyPROG 2017-0 Yes 10mg Take 1 Univ ers ESTERone 8-29 tablet by ity of (PROVERA) 00:00: mouth [place] 10 mg 00 daily. Medical tablet Branch LOESTRIN FE Yes 1{tbl} Take 1 Un brendan (LOESTRIN 8-29 tablet by ity o f FE 07/30) 1 00:00: mouth [place] mg-20 mcg 00 daily. Medical (21)/75 mg Branch (7) tablet tiZANidine Yes Univers 6 mg 8-09 ity of capsule 00:00: [place] [facility] tiZANidine 0 Yes Univers 6 mg 8-09 ity of capsule 00:00: [place] [facility] traMADOL 50 0 Yes 50mg Take 1 Univ ers mg tablet 5-18 tablet by ity o f 00:00: mouth [place] 00 every 6 Medical (six) Branch hours as needed for Pain (scale 7-10). traMADOL 50 0 Yes 50mg Take 1 Univ ers mg tablet 5-18 tablet by ity o f 00:00: mouth [place] 00 every 6 Medical (six) Branch hours as needed for Pain (scale 7-10). HYDROcodone Yes Abnormal CT 1{tbl} Take 1 Tab Univers -acetaminop 9-24 scan, by mouth ity of hen (NORCO) 00:00: bladder every 6 [place] 10-325 mg 00 (six) Medical tablet hours as Branch needed for Pain (scale 4-6). HYDROcodone [address] 1{tbl} Take 1 Tab Univers -acetaminop 9-24 scan, by mouth ity of hen (NORCO) 00:00: bladder every 6 [place] 10-325 mg 00 (six) Medical tablet hours as Branch needed for Pain (scale 4-6). Vital Signs Vital Name Observation Time Observation Value Comments Source Systolic blood 2020-11-14 02:30:00 160 mm[Hg] Univer sity of pressure [place] [facility] Diastolic blood 2020-11-14 02:30:00 87 mm[Hg] Unive rsity of pressure [facility] [place] [facility] Heart rate 2020-11-14 02:30:00 99 /min Universi ty of [facility] [place] [facility] Body temperature 2020-11-14 02:30:00 37.06 Renetta Univ ersity of [facility] [place] [facility] Respiratory rate 2020-11-14 02:30:00 18 /min Univ ersity of [facility] [place] [facility] Body height 2020-11-14 02:30:00 177.8 cm Universi ty of [place] [facility] [place] Body weight 2020-11-14 02:30:00 86.183 kg Universi ty of [place] [facility] [place] BMI 2020-11-14 02:30:00 27.26 kg/m2 Universi ty of [place] [facility] [place] Oxygen saturation in 2020-11-14 02:30:00 98 /min University of Arterial blood by [place] [facility] Pulse oximetry Branch Systolic blood 2020-11-14 02:30:00 160 mm[Hg] Univer sity of pressure [facility] [place] [facility] Diastolic blood 2020-11-14 02:30:00 87 mm[Hg] Unive rsity of pressure [facility] [place] [facility] Heart rate 2020-11-14 02:30:00 99 /min Universi ty of [place] [facility] [place] Body temperature 2020-11-14 02:30:00 37.06 [facility] 2020-11-14 02:30:00 18 /min [facility] [place] [facility] Body height 2020-11-14 02:30:00 177.8 cm Universi ty of [place] [facility] [place] Body weight 2020-11-14 02:30:00 86.183 kg Universi ty of [place] [facility] [place] BMI 2020-11-14 02:30:00 27.26 kg/m2 Universi ty of [place] [facility] Oxygen saturation in 2020-11-14 02:30:00 98 /min University of Arterial blood by [facility] Pulse oximetry Branch Procedures Procedure Date / Time Performed Performing Clinician Sourdiego e XR KNEE <3 VW LEFT 2020-11-14 02:50:39 Rajan Sommer [facility] Plan of Care Planned Activity Planned Date Details Comments Source Future Scheduled 2023 Screening for [facility] [place] Test 00:00:00 malignant neoplasm Medical B ranch of colon (procedure) [code = 087859639] Future Scheduled 2023 Screening for [facility] Test 00:00:00 malignant neoplasm Medical B ranch of colon (procedure) [code = 031614865] Future Scheduled 2021-03-11 [facility] [place] [facility] (Season Ended) [code Medical Branch = INFLUENZA VACCINE (Season Ended)] Future Scheduled 2021-03-11 [facility] [place] [facility]:00:00 (Season Ended) [code Medical Branch = INFLUENZA VACCINE (Season Ended)] Future Scheduled 2021-03-08 Screening for [facility] Test 00:00:00 malignant neoplasm Medical B ranch of cervix (procedure) [code = 197167247] Future Scheduled 2021-03-08 Screening for [facility] Test 00:00:00 malignant neoplasm Medical B ranch of cervix (procedure) [code = 722473142] Future Scheduled 2019-03-08 Screening for [facility] Test 00:00:00 malignant neoplasm Medical B ranch of breast (procedure) [code = 214198618] Future Scheduled 2019-03-08 Screening for [facility] Test 00:00:00 malignant neoplasm Medical B ranch of breast (procedure) [code = 719145655] Future Scheduled 1992-01-14 DTaP,Tdap,and Td [facility] [place] [facility]00 Vaccines (1 - Tdap) Medical Branch [code = DTaP,Tdap,and Td Vaccines (1 - Tdap)] Future Scheduled 1992-01-14 DTaP,Tdap,and Td [facility] [place] [facility]:00 Vaccines (1 - Tdap) Medical Branch [code = DTaP,Tdap,and Td Vaccines (1 - Tdap)] Future Scheduled 1989 SARS-CoV-2 [facility] Test 00:00:00 (COVID-19) Vaccine Medical B ranch (1) [code = SARS-CoV-2 (COVID-19) Vaccine (1)] Future Scheduled 1989 SARS-CoV-2 [facility] Test 00:00:00 (COVID-19) Vaccine Medical B ranch (1) [code = SARS-CoV-2 (COVID-19) Vaccine (1)] Future Scheduled 1985 Depression screening [facility] [place] Test 00:00:00 (procedure) [code = Medical Branch [id number]] Future Scheduled 1985 Depression screening [facility] [place] Test 00:00:00 (procedure) [code = Medical Branch [id number]] Future Scheduled XR KNEE <3 VW LEFT [facility] [place] Test [code = 03294] Medical Branc h Encounters Start End Encounter Admission Attending Care Care Encounter Source Date/Time Date/Time Type Type Clinicians Facility Department ID 2020-11-13 2020-11-13 Emergency [facility] [id number] 21:32:00 22:27:00 Rajan Lindquist [id number] [place] [id number] [place] [id number] 2020-11-13 2020-11-13 Emergency Count includes the [facility] [id number] 20:58:00 21:22:00 Cassidy Lindquist [id number] [place] [id number] [place] [id number] Results This patient has no known results.
--- NOTE | 2021-01-14 15:31 | RAD REPORT ---
EXAM DESCRIPTION: US - Pelvis Complete - 01/14/2021 3:08 pm CLINICAL HISTORY: Vaginal bleeding COMPARISON: 2018 FINDINGS: The uterus measures 10 x 6 x 7 centimeters. The endometrial stripe measures 15 millimeters . 16 millimeter fibroid. The right ovary measures 6.9 x 3.2 centimeters. It contains several cysts. The largest measures 4.1 c entimeters. Blood flow to the right ovary is present. Left ovary is normal in size and echotexture. No significant free fluid IMPRESSION: 4.1 centimeter right ovarian cyst without significant free fluid. Borderline prominence of the endometrial stripe Follow-up ultrasound couple months recommended to assess stability/resolution of the ovarian cyst. Th e endometrial stripe can be reassessed at this time
--- NOTE | 2021-01-14 16:32 | EDPHYS ---
Physician Documentation [facility] Name: Yazmin Monzon Age: 46 yrs Sex: Female : 1975 Arrival Date: 01/14/2021 Time: 11:53 Bed 19 Private MD: None, None ED Physician Sonido Lopez HPI: 01/14 12:15 This 46 yrs old Female presents to ER via Ambulatory with complaints of jmm Vaginal Bleeding - Clots. 12:15 The patient presents with vaginal bleeding that is. Onset: The symptoms/episode jmm began/occurred acutely, 4 day(s) ago. Modifying factors: The symptoms are alleviated by nothing, the symptoms are aggravated by nothing. Associated signs and symptoms: Pertinent negatives: fever. This is a 46 year old female with a history of endometriosis, intrauterine fibroids that presents to the ED with complaints of heavy vaginal bleeding beginning 4 days ago while passing clots. Patient states having s syncopal episode yesterday and hitting her head. . Historical: - Allergies: 12:14 PENICILLINS; ll1 - PMHx: 12:14 Back pain; Endometrosis; ll1 - PSHx: 12:14 tubal ligation; ll1 - Immunization history:: Flu vaccine is not up to date. - Social history:: Smoking status: Patient denies any tobacco usage or history of. ROS: 12:15 Constitutional: Negative for fever, chills, and weight loss, Cardiovascular: Negative jmm for chest pain, palpitations, and edema, Respiratory: Negative for shortness of breath, cough, wheezing, and pleuritic chest pain. 12:15 : Positive for vaginal bleeding. 12:15 All other systems are negative. Exam: 12:15 Constitutional: This is a well developed, well nourished patient who is awake, alert, jmm and in no acute distress. Head/Face: atraumatic. Eyes: EOMI, no conjunctival erythema appreciated ENT: Moist Mucus Membranes Neck: Trachea midline, Supple Chest/axilla: Normal chest wall appearance and motion. Cardiovascular: Regular rate and rhythm. No edema appreciated Respiratory: Normal respirations, no respiratory distress appreciated Abdomen/GI: Non distended, soft Back: Normal ROM Skin: General appearance color normal 12:15 Neuro: Awake and alert, normal gait Psych: Behavior is normal, Mood is normal, Patient is cooperative and pleasant 12:15 : Pelvic Exam: External exam: is normal, Speculum exam: mild bleeding. Vital Signs: 12:13 BP 147 / 117; Pulse 140; Resp 20; Pulse Ox 100% on R/A; Weight 86.18 kg; Height 5 ft. ll1 10 in. (177.80 cm); Pain 8/10; 13:04 BP 128 / 70; Pulse 141; Resp 18; Pulse Ox 100% on R/A; tr6 14:00 BP 118 / 76; Pulse 101; Resp 18; Pulse Ox 100% on R/A; tr6 15:00 BP 93 / 79; Pulse 103; Resp 16; Temp 98.8; Pulse Ox 100% on R/A; tr6 16:00 BP 124 / 79; Pulse 101; Resp 16; Temp 98.8; Pulse Ox 100% on R/A; tr6 16:40 BP 115 / 68; Pulse 87; Resp 17; Temp 98.4; Pulse Ox 100% on R/A; tr6 17:10 BP 124 / 87; Pulse 84; Resp 16; Temp 98.8; Pulse Ox 100% on R/A; tr6 18:00 BP 128 / 87; Pulse 88; Resp 16; Temp 98.6; Pulse Ox 100% on R/A; tr6 12:13 Body Mass Index 27.26 (86.18 kg, 177.80 cm) ll1 MDM: 12:22 Patient medically screened. [facility] 16:27 Data reviewed: vital signs, nurses notes. Counseling: I had a detailed discussion with regi the patient and/or guardian regarding: the historical points, exam findings, and any diagnostic results supporting the discharge/admit diagnosis, lab results, radiology results, the need for outpatient follow up, to return to the emergency department if symptoms worsen or persist or if there are any questions or concerns that arise at home. ED course: I discussed the patient with Dr. Fong whom accepted the patient to the womens floor. . 01/14 12:15 Order name: Basic Metabolic Panel; Complete Time: 13:28 [facility] 01/14 12:15 Order name: CBC with Diff; Complete Time: 13:34 [facility] 01/14 12:15 Order name: LFT's; Complete Time: 13:28 [facility] 01/14 12:15 Order name: Magnesium; Complete Time: 13:28 [facility] 01/14 12:15 Order name: NT PRO-BNP; Complete Time: 13:28 [facility] 01/14 12:15 Order name: PT-INR; Complete Time: 13:54 [facility] 01/14 12:15 Order name: Troponin (emerg Dept Use Only); Complete Time: 13:28 [facility] 01/14 12:15 Order name: PRBC [facility] 01/14 12:16 Order name: ABO/RH typing [facility] 01/14 12:16 Order name: Antibody Screen [facility] 01/14 16:45 Order name: Packed RBC Leukored [facility] 01/14 16:45 Order name: Hemoglobin [facility] 01/14 16:45 Order name: ABO/RH typing [facility] 01/14 12:15 Order name: EKG; Complete Time: 12:15 [facility] 01/14 12:15 Order name: Cardiac monitoring; Complete Time: 13:29 [facility] 01/14 12:15 Order name: EKG - Nurse/Tech; Complete Time: 13:29 [facility] 01/14 12:21 Order name: CT Head C Spine; Complete Time: 12:52 [facility] 01/14 14:07 Order name: US Pelvis Complete; Complete Time: 15:39 [facility] 01/14 15:08 Order name: Transvaginal Study Probe [facility] 01/14 16:45 Order name: NPO [facility] 01/14 16:45 Order name: Antibody Screen [facility] 01/14 16:58 Order name: COVID-19 : Document "Date of Symptom Onset" if Symptomatic. ss 01/14 17:27 Order name: CORONAVIRUS [facility] 01/14 18:25 Order name: SARS-COV-2 RT PCR; Complete Time: 18:48 [facility] 01/14 12:15 Order name: IV Saline Lock; Complete Time: 13:13 [facility] 01/14 12:15 Order name: Labs collected and sent; Complete Time: 13:13 [facility] 01/14 12:15 Order name: O2 Per Protocol; Complete Time: 13:13 [facility] 01/14 12:15 Order name: O2 Sat Monitoring; Complete Time: 13:13 [facility] Administered Medications: 14:50 Drug: Benadryl (diphenhydrAMINE) 12.5 mg Route: IVP; Site: right wrist; tr6 19:42 Follow up: Response: No adverse reaction jm8 14:50 Drug: Solu-CORTEF (hyrdoCORTISONE) 50 mg Route: IVP; Site: right wrist; tr6 19:43 Follow up: Response: No adverse reaction jm8 14:50 Drug: Tylenol 650 mg Route: PO; tr6 19:42 Follow up: Response: No adverse reaction jm8 18:54 Drug: Zofran (Ondansetron) 4 mg Route: IVP; Site: left antecubital; tr6 19:42 Follow up: Response: No adverse reaction jm8 18:56 Drug: morphine 4 mg {Note: rass 0.} Route: IVP; Site: left antecubital; tr6 19:42 Follow up: Response: No adverse reaction [facility] Disposition: 22:09 Co-signature as Attending Physician, Sonido Lopez MD I agree with the assessment and kdr plan of care. Disposition Summary: 01/14/21 16:31 Hospitalization Ordered Hospitalization Status: Inpatient Admission [facility] Provider: Trevor Fong Condition: Stable jm Problem: new jmm Symptoms: have improved jm Bed/Room Type: Standard [facility] Location[facility](01/14/21 18:34) eb Room Assignment: [facility]-(01/14/21 18:34) eb Diagnosis - Abnormal uterine and vaginal bleeding, unspecified jmm - Anemia, unspecified [facility] Forms: - Medication Reconciliation Form jmm - SBAR form jm Signatures: Dispatcher [employer] EDSonido Mcqueen MD MD kdr Mickail, Joel, PA PA [facility] Heather Fox Lynsay, RN RN ll1 [place] Taveras RN RN tr6 Venkatesh Beard RN jm8 Corrections: (The following items were deleted from the chart) 13:12 12:15 TYPE AND SCREEN+[id number].LAB.BRZ ordered. [facility] 18:34 16:31 Telemetry/MedSurg (Inpatient) [facility] 18:34 16:31 [facility]
--- NOTE | 2021-01-14 16:32 | ER ---
Nurse's Notes [facility] Name: Yazmin Monzon Age: 46 yrs Sex: Female : 1975 Arrival Date: 01/14/2021 Time: 11:53 Bed 19 Private MD: None, None Diagnosis: Abnormal uterine and vaginal bleeding, unspecified;Anemia, unspecified Presentation: 01/14 12:13 Chief complaint: Patient states: Heavy vaginal bleeding with clots since 01/10. Syncopal ll1 episode yesterday. No fever. Coronavirus screen: Client denies travel out of the [place] in the last 14 days. At this time, the client does not indicate any symptoms associated with coronavirus-19. Ebola Screen: Patient denies travel to an Ebola-affected area in the 21 days before illness onset. Initial Sepsis Screen: Does the patient meet any 2 criteria? HR > 90 bpm. No. Patient's initial sepsis screen is negative. Does the patient have a suspected source of infection? Yes: Other: vag bleed with clots. Risk Assessment: Do you want to hurt yourself or someone else? Patient reports no desire to harm self or others. Onset of symptoms was January 10, 2021. 12:13 Method Of Arrival: Ambulatory ll1 12:13 Acuity: GEORGETTE 2 ll1 Historical: - Allergies: 12:14 PENICILLINS; ll1 - PMHx: 12:14 Back pain; Endometrosis; ll1 - PSHx: 12:14 tubal ligation; ll1 - Immunization history:: Flu vaccine is not up to date. - Social history:: Smoking status: Patient denies any tobacco usage or history of. Screenin:44 Abuse screen: Denies threats or abuse. Denies injuries from another. Nutritional tr6 screening: No deficits noted. Tuberculosis screening: No symptoms or risk factors identified. Fall Risk Fall in past 12 months (25 points). Assessment: 12:00 General: Appears comfortable, well groomed, Behavior is calm, cooperative, appropriate tr6 for age. Pain: Complains of pain in lower abdomen. Neuro: No deficits noted. Cardiovascular: Capillary refill < 3 seconds Pulses are all present. Rhythm is sinus tachycardia. Respiratory: Parent/caregiver reports the patient having shortness of breath on exertion. GI: No deficits noted. : pt reports vaginal bleeding along with large clots Reports vaginal bleeding that is with clots. EENT: No deficits noted. Derm: No deficits noted. Musculoskeletal: No deficits noted. 12:29 Reassessment: pt transferred to CT via stretcher. tr6 Vital Signs: 12:13 BP 147 / 117; Pulse 140; Resp 20; Pulse Ox 100% on R/A; Weight 86.18 kg; Height 5 ft. ll1 10 in. (177.80 cm); Pain 8/10; 13:04 BP 128 / 70; Pulse 141; Resp 18; Pulse Ox 100% on R/A; tr6 14:00 BP 118 / 76; Pulse 101; Resp 18; Pulse Ox 100% on R/A; tr6 15:00 BP 93 / 79; Pulse 103; Resp 16; Temp 98.8; Pulse Ox 100% on R/A; tr6 16:00 BP 124 / 79; Pulse 101; Resp 16; Temp 98.8; Pulse Ox 100% on R/A; tr6 16:40 BP 115 / 68; Pulse 87; Resp 17; Temp 98.4; Pulse Ox 100% on R/A; tr6 17:10 BP 124 / 87; Pulse 84; Resp 16; Temp 98.8; Pulse Ox 100% on R/A; tr6 18:00 BP 128 / 87; Pulse 88; Resp 16; Temp 98.6; Pulse Ox 100% on R/A; tr6 12:13 Body Mass Index 27.26 (86.18 kg, 177.80 cm) ll1 ED Course: 11:53 Patient arrived in ED. ds1 11:54 None, None is Private Physician. ds1 12:11 Arm band placed on Patient placed in an exam room, on a stretcher. ll1 12:14 Ricardo Leahy PA is PHCP. jmm 12:14 Sonido Lopez MD is Attending Physician. jmm 12:14 Triage completed. ll1 12:27 Africa Taveras, MARIBEL is Primary Nurse. tr6 12:38 CT Head C Spine In Process Unspecified. EDMS 13:12 Resting quietly. tr6 13:12 Inserted saline lock: 18 gauge in right hand, using aseptic technique. tr6 13:12 Inserted saline lock: 20 gauge in left antecubital area, using aseptic technique. Blood tr6 collected. 13:44 Patient has correct armband on for positive identification. Bed in low position. Call tr6 light in reach. Side rails up X 1. vp hr diversity on. Pulse ox on. NIBP on. Door closed. Noise minimized. Visitors limited. Lights dimmed. Moved to private room. Warm blanket given. Diet: Patient is NPO. Consent for blood and/or blood product transfusion explained by staff, explained by physician. 13:44 No provider procedures requiring assistance completed. tr6 15:08 US Pelvis Complete In Process Unspecified. EDMS 15:08 Transvaginal Study Probe In Process Unspecified. EDMS 15:40 Assist provider with pelvic exam: Set up pelvic tray. Performed by Ricardo MCINTYRE tr6 Patient tolerated. 16:28 Trevor Fong MD is Hospitalizing Provider. jmm 18:45 Patient admitted, IV remains in place. tr6 19:11 Primary Nurse role handed off by Africa Taveras RN eb Administered Medications: 14:50 Drug: Benadryl (diphenhydrAMINE) 12.5 mg Route: IVP; Site: right wrist; tr6 19:42 Follow up: Response: No adverse reaction jm8 14:50 Drug: Solu-CORTEF (hyrdoCORTISONE) 50 mg Route: IVP; Site: right wrist; tr6 19:43 Follow up: Response: No adverse reaction jm8 14:50 Drug: Tylenol 650 mg Route: PO; tr6 19:42 Follow up: Response: No adverse reaction jm8 18:54 Drug: Zofran (Ondansetron) 4 mg Route: IVP; Site: left antecubital; tr6 19:42 Follow up: Response: No adverse reaction jm8 18:56 Drug: morphine 4 mg {Note: rass 0.} Route: IVP; Site: left antecubital; tr6 19:42 Follow up: Response: No adverse reaction jm8 Outcome: 16:31 Decision to Hospitalize by Provider. jmm 18:44 Admitted to L \T\ D, accompanied by karla, via stretcher, room 270, with chart. tr6 18:44 Condition: stable 18:44 Discharge instructions given to patient, Instructed on the need for admit, safety practices, Demonstrated understanding of instructions, follow-up care, medications. 19:43 Patient left the ED. [email or web address] Signatures: Dispatcher [employer] EDMS Ricardo Leahy PA PA jmm Sanford, Demi ds1 Heather Fox Lynsay, RN RN ll1 Venkatesh Beard RN RN jm8 Africa Taveras RN RN tr6
[2021-01-14] MEDS ORDERED: ONDANSETRON 4 MG/2 ML VIAL IV PRN (16:37)
[2021-01-14] MEDS ORDERED: D5 0.45 NS 1,000 ML IV SCH (17:00)
[2021-01-14] MEDS: ACETAMINOPHEN 500 MG TAB PO PRN (18:25)
[2021-01-14] MEDS ORDERED: ACETAMINOPHEN 500 MG TAB ONE (18:48)
[2021-01-14] MEDS ORDERED: ONDANSETRON 4 MG/2 ML VIAL ONE (19:13)
[2021-01-14] MEDS ORDERED: MORPHINE 4 MG/ML SYR ONE (19:13)
[2021-01-14 20:23] VITALS: O2SAT 100
[2021-01-14] MEDS ORDERED: D5 0.9 NS 1,000 ML IV ONE (20:47)
[2021-01-14 21:47] VITALS: BMI 27.2
[2021-01-14] MEDS: MORPHINE 4 MG/ML SYR IV PRN (23:53)
[2021-01-15] MEDS: MORPHINE 4 MG/ML SYR IV PRN ×2 (05:19→14:26)
[2021-01-15 05:46] LABS: BUN Blood Urea Nitrogen 8 mg/dL (7-18); Bicarbonate 28 mmol/L (21-32); Glucose Level 108 mg/dL (74-106); Potassium 4.1 mmol/L (3.5-5.1); Sodium Level 142 mmol/L (136-145)
[2021-01-15 07:06] LABS: Hematocrit 17.7 % (36.0-45.0)
[2021-01-15] MEDS: ACETAMINOPHEN 500 MG TAB PO PRN ×3 (07:37→17:21)
--- NOTE | 2021-01-15 08:05 | EKG ---
Test Date: 2021-01-14 Test Time: 13:20:26 Pole Maker: TTR MEASUREMENT RESULTS: Intervals: Rate: 104 LA: 136 QRSD: 70 QT: 322 QTc: 423 [place]: P: 50 LA: 136 QRS: 65 T: 45 INTERPRETIVE STATEMENTS: Sinus tachycardia Otherwise normal ECG Compared to ECG 04/29/2019 23:01:28 No significant changes Electronically Signed On 01-15-21 08:03:42 CDT by Robson Porter
[2021-01-15] MEDS ORDERED: NA CHLORIDE 0.9% 1,000 ML ONE ×2 (08:21→08:44)
--- NOTE | 2021-01-15 09:41 | PREOPHP ---
Date of Admission: 01/14/2021 History Of Present Illness: A 46-year-old female with severe dysfunctional bleeding. The patient st ates that this started about 2 years ago. She saw female doctor in [place], but was never started o n treatment. They were going to do a biopsy and then her mother broke her foot and she got distracte d. Said she saw somebody else also, but no treatment was given. Came into our emergency room. Hemo globin was 4.2. Pulse had gone up to 140, but then it came back down and bleeding basically subsided while she was under observation. She has been admitted. She has had 2 units of blood. Her hemoglo bin is now 5.8. Pulse is in the 80 to 90 range. She is quite alert. Conjunctivae look good, but we are giving her 1 more unit of blood and then we will decide what to do next. Allergies: SHE IS ALLERGIC TO PENICILLIN. Social History: She has had 3 children, the largest 9 pounds. Family History: No family history of bleeding disorders. Past Surgical History: She has had a tubal ligation, but otherwise no other surgeries. Medications: She has been on chronic pain medicines for lower back discomfort and is apparently taki ng Wendel and other medications. She had 4 mg of morphine at 6 this morning and Wendel. We will defer her pain management to her docto r whom she has seen in [place]. This morning, she is alert and awake and after discussion, we decided to proceed with endometrial bio psy. She was placed in dorsal lithotomy position. Tenaculum was placed on the anterior cervical lip. Cer vix was cleaned with Betadine. Two Gynosamplers were used and abundant amount of tissue was obtained and sent to pathology. Options discussed including control pill. She has no history of clots in the legs stroke, heart attacks, or breast cancer herself. She has not smoked for over 20 somethi ng years. We have decided on control pills currently. We will start her on 2 to 3 a day leobardo lewis upon if she can tolerate them and do that for several days and then go to 1 a day. Her daughter is on a control pill. She takes them continuously and has no period. The patient voiced chelsy re to possibly do the same. We discussed Depo-Provera, Mirena IUD, even ablation. All of these have been discussed. Right now though, we will await pathology report to see which direction we are kevin g to go. We are going to be keeping the patient at least until this afternoon. After the 3rd unit o f blood, we will walk her around with assistance and see how she tolerates it, but I would like to se e the hemoglobin at least to 6.5 to 7 before we dismiss her if possible. The patient had minimal ble eding last night, this morning slightly more, but no big clots at this point. Stable. Dysfunctional uterine bleeding, severe. Third unit of blood transfusion. Endometrial biopsy obtained. Uterus so unds to 8 cm. Hormonal treatment will be started. VIV/REED Voice ID: [id number]
[2021-01-15] MEDS ORDERED: ESTROGENS,CONJ 25 MG IV IV ONE (10:00)
[2021-01-15 15:58] LABS: MPV 8.4 fL (7.6-11.3); RBC Red Blood Cell Count 2.66 M/uL (3.86-4.86)
[2021-01-15 15:59] LABS: Hematocrit 20.6 % (36.0-45.0)
[2021-01-15 16:32] VITALS: BP 115/67; TEMP 98
--- NOTE | 2021-01-16 10:14 | RAD REPORT ---
EXAM DESCRIPTION: US - Transvaginal Study Probe - 01/14/2021 8:35 pm CLINICAL HISTORY: Vaginal bleeding COMPARISON: 2018 FINDINGS: The uterus measures 10 x 6 x 7 centimeters. The endometrial stripe measures 15 millimeters . 16 millimeter fibroid. The right ovary measures 6.9 x 3.2 centimeters. It contains several cysts. The largest measures 4.1 c entimeters. Blood flow to the right ovary is present. Left ovary is normal in size and echotexture. No significant free fluid IMPRESSION: 4.1 centimeter right ovarian cyst without significant free fluid. Borderline prominence of the endometrial stripe Follow-up ultrasound couple months recommended to assess stability/resolution of the ovarian cyst. Th e endometrial stripe can be reassessed at this time
== END 2021-01-15 17:33 | disposition home or self-care (01) | DRG 745 ==
LOC: ER 11:50 → ERHOLD 16:36 → 2ND-WC 19:29
PROVIDERS: ADMIT Specialist; ATTEND Specialist
PROC: 0UDB7ZX Extraction of Endometrium, Via Natural or Artificial Opening, Diagnostic (ICD-10-PCS; principal; 2021-01-14)
PROC: 30233N1 Transfusion of Nonautologous Red Blood Cells into Peripheral Vein, Percutaneous Approach (ICD-10-PCS; 2021-01-14)
DX: N93.9 Abnormal uterine and vaginal bleeding, unspecified (principal); D64.9 Anemia, unspecified; Z88.0 Allergy status to penicillin; Z20.822 Contact with and (suspected) exposure to COVID-19
CPT/HCPCS: 36415; 70450; 72125; 76830; 76856; 80048; 80076; 83735; 83880; 84484; 85014; 85018; 85025; 85027; 85610; 86850; 86900; 86901; 88305; 93005; 99285; J1200; J1410; J1720; J2405; J7030; J7042; J7050; J7799; P9016; U0003

== ENCOUNTER 2021-02-11 21:57 | Emergency (ER) | payer SELFPAY ==
--- OUTSIDE RECORDS SUMMARY | 2021-02-11 22:00 | XMS REPORT | Continuity of Care Document ---
:1975 Author Organization [facility] t Address [address] [place] [address] Care Team Providers Name Role Phone Steven Griffin MD Primary Care Physician Singer SALGUERO Attending Clinician Iam MUÑOZ S Attending Clinician Problems Condition Condition Condition Status Onset Resolution Last Treating Co mments Source Name Details Category Date Date Treatment Clinician Date Screening Screening Disease Active Overview: Univers for for 03-15 Added ity of colorectal colorectal 00:00: automatic [place] cancer cancer 00 ally from Medical request Branch for surgery [id number] Elderly Elderly Disease Active Overview: Univ ers multigravi multigravi 01-22 ICD10 it y of da da 00:00: Diagnosis [place] delivered delivered 00 Term Medi cr Orthodontic Technician Assistant Branch Utility Post term Post term Disease Active Overview: Univers , , 01-22 ICD10 it y of delivered delivered 00:00: Diagnosis [place] 00 Term Medical Orthodontic Technician Assistant Branch Utility Tubal Tubal Disease Active Univers ligation ligation 01-20 ity of status status 00:00: [place] 00 Medical Branch First First Disease Active Overview: Univer s degree degree 01-20 ICD10 ity of perineal perineal 00:00: Diagnosis [place] as laceration laceration 00 Term Me dical during during Orthodontic Technician Assistant Branch delivery delivery Utility Disease Active U nivers care and care and 01-20 ity of examinatio examinatio [place] 00 Medical immediatel immediatel Br anch y after y after delivery delivery Multiparit Multiparit Disease Resolve 2008-01-22 Univers y y d 7 00:00:00 ity of 00:00: [place] 00 Medical Branch Cord Cord Disease Resolve 2008-01-22 Univ ers around around d 7 00:00:00 ity of neck, with neck, with [...] 00 Medical Branch Other Other Disease Resolve [id number] Univers abnormal abnormal d 11-17 00:00:00 14:28:21 it y of glucose glucose 00:00: [place] 00 Medical Branch Overweight Overweight Disease Resolve 2008-01-21 2015-04-11 Univers d 11-17 00:00:00 22:46:27 ity of 00:00: [place] 00 [...] ic ic 00:00: [place] vaccinatio vaccinatio 00 Az dical n and n and Branch inoculatio inoculatio n against n against influenza influenza History of History of Disease Resolve 2008-01-21 2015-04-11 Univers urinary urinary d 11-17 00:00:00 22:46:27 ity of tract tract 00:00: [place] infection infection 00 [facility] History of History of Disease Resolve 2008-01-21 2015-04-11 Univers cardiovasc cardiovasc d 11-17 00:00:00 22:46:27 ity of ular ular 00:00: [place] disorder disorder 00 Medica l Branch Alcoholism Alcoholism Disease Resolve 2008-01-21 2008-01-21 Univers in family in family d 11-17 00:00:00 14:28:21 ity of 00:00: [place] 00 Medical Branch Supervisio Supervisio Disease Resolve 2008-01-21 2008-01-21 Univers n of other n of other d 5-10 00:00:00 14:28:21 ity of normal normal 00:00: [place] 00 Medi cr Branch Disease Resolve 2008-01-21 2008-01-21 Univers with with d 5-10 00:00:00 14:28:21 ity of history of history of 00:00: [facility] 00 Medica l Branch Encounter Encounter Disease Resolve 2008-01-21 2015-04-11 Univers for for d 5-10 00:00:00 22:46:27 [place] screening screening 00 Medi cr of mother of mother Bran ch Allergies, Adverse Reactions, Alerts Allergy Allergy Status Severity Reaction(s) Onset Inactive Treating Comm ents Source Name Type Date Date Clinician Penicill Propensi Active Unknown - Uni vers ins ty to See comments 03-08 ity of adverse 00:00: [place] reaction 00 Medical s Branch Social History Social Habit Start Date Stop Date Quantity Comments Source Exposure to Not sure [facility]-CoV-2 [place] [facility] (event) [place] Tobacco use and 2018-10-25 2018-10-25 Never used Universit y of exposure 00:00:00 00:00:00 [facility] Alcohol intake 2018-10-25 2018-10-25 Current drinker Unive rsity of 00:00:00 00:00:00 of alcohol [place] [facility] (finding) [place] Alcohol Comment 2013-04-03 2013-04-03 wine 1 glass per Uni versity of 00:00:00 00:00:00 evening [facility] Sex Ass[birth year] At [birth year] Universit y of 00:00:00 00:00:00 [facility] Smoking Status Start Date Stop Date Source Never smoker [facility] acute [facility] Medications Ordered Filled Start Stop Current Ordering [...] by ity of tablet 00:00: mouth 2 00 (two) Medical times Branch daily with meals. diclofenac 2018-0 Yes 75mg Take 1 Unive rs 75 mg EC 9-06 tablet by ity of tablet 00:00: mouth 2 00 (two) Medical times Branch daily with [...] 00 daily. Medical tablet Branch LOESTRIN FE 2018-0 Yes 1{tbl} Take 1 Un brendan (LOESTRIN 8-29 tablet by ity o f FE 07/30) 1 00:00: mouth [place] mg-20 mcg 00 daily. Medical (21)/75 mg Branch (7) tablet medroxyPROG Yes 10mg Take 1 Univ ers ESTERone [...] 6 mg 8-09 ity of capsule 00:00: [place] Medical [facility] tiZANidine 0 Yes Univers 6 mg 8-09 ity of capsule 00:00: [place] [facility] traMADOL 50 Yes 50mg Take 1 Univ ers mg tablet 5-18 tablet by ity o f 00:00: mouth [place] 00 every 6 Medical (six) Branch hours as needed for Pain (scale 7-10). traMADOL 50 Yes 50mg Take 1 Univ ers mg [...] 02:30:00 160 mm[Hg] Univer sity of pressure [facility] Diastolic blood 2020-11-14 02:30:00 87 mm[Hg] Unive rsity of pressure [place] [facility] [place] Heart rate 2020-11-14 02:30:00 99 /min Universi ty of [place] [facility] [place] Body temperature 2020-11-14 02:30:00 37.06 Renetta Univ ersity of [facility] Respiratory rate 2020-11-14 02:30:00 18 /min Univ ersity of [facility] Body height 2020-11-14 02:30:00 177.8 cm Universi ty of [place] [facility] [place] Body weight 2020-11-14 02:30:00 86.183 kg Universi ty of [place] [facility] BMI 2020-11-14 02:30:00 27.26 kg/m2 Universi ty of [facility] Oxygen saturation in 2020-11-14 02:30:00 98 /min University of Arterial blood by [facility] Pulse oximetry Branch Systolic blood 2020-11-14 02:30:00 160 mm[Hg] Univer sity of pressure [facility] Diastolic blood 2020-11-14 02:30:00 87 mm[Hg] Unive rsity of [facility] Heart rate 2020-11-14 02:30:00 99 /min Universi ty of [place] [facility] [place] Body temperature 2020-11-14 02:30:00 37.06 [facility] 2020-11-14 02:30:00 18 /[facility] [place] Body height 2020-11-14 02:30:00 177.8 cm Universi ty of [place] [facility] [place] Body weight 2020-11-14 02:30:00 86.183 kg Universi ty of [place] [facility] [place] BMI 2020-11-14 02:30:00 27.26 kg/m2 Universi ty [facility] Medical Branch Oxygen saturation in 2020-11-14 02:30:00 98 /min University of Arterial blood by [place] [facility] Pulse oximetry Branch Procedures Procedure Date / Time Performed Performing Clinician Thanh e XR KNEE <3 VW LEFT 2020-11-14 02:50:39 Rajan Sommer [facility] Plan of Care Planned Activity Planned Date Details Comments Source Future Scheduled 2023 Screening for [facility] [place] Test 00:00:00 malignant neoplasm Medical B ranch of colon (procedure) [code = 422154419] Future Scheduled 2023 Screening for [facility] Test 00:00:00 malignant neoplasm Medical B ranch of colon (procedure) [code = 663198596] Future Scheduled 2021-03-11 [facility] ([facility] Ended[facility] [code Medical Branch = INFLUENZA VACCINE (Season Ended)] Future Scheduled 2021-03-11 [facility] (Season Ended) [code Medical Branch = INFLUENZA VACCINE (Season Ended)] Future Scheduled 2021-03-08 Screening for [facility] Test 00:00:00 malignant neoplasm Medical B ranch of cervix (procedure) [code = 350473416] Future Scheduled 2021-03-08 Screening for [facility] Test 00:00:00 malignant neoplasm Medical B ranch of cervix (procedure) [code = 419779496] Future Scheduled 2019-03-08 Screening for [facility] Test 00:00:00 malignant neoplasm Medical B ranch of breast (procedure) [code = 465104888] Future Scheduled 2019-03-08 Screening for [facility] Test 00:00:00 malignant neoplasm Medical B ranch of breast (procedure) [code = 180822641] Future Scheduled 1992-01-14 DTaP,Tdap,and Td [facility] Vaccines (1 - Tdap) Medical Branch [code = DTaP,Tdap,and Td Vaccines (1 - Tdap)] Future Scheduled 1992-01-14 DTaP[facility]dap,and Td [facility]00 Vaccines (1 - Tdap) Medical [...] Vaccine (1)] Future Scheduled 1985 Depression screening [facility] Test 00:00:00 (procedure) [code = Medical Branch [id number]] Future Scheduled 1985 [facility] (procedure) [code = Medical Branch [id number]] Future Scheduled XR KNEE <3 [facility]W [facility] [code = 44755] Medical Branc h Encounters Start End Encounter Admission Attending Care Care Encounter Source Date/Time Date/Time Type Type Clinicians Facility Department ID 2020-11-13 2020-11-13 Emergency [facility] [id number] 21:32:00 22:27:00 Rajan Lindquist [id number] [place] [id number] [place] [id number] 2020-11-13 2020-11-13 Emergency [facility] [id number] 20:58:00 21:22:00 Cassidy Lindquist [id number] [place] [id number] [place] [id number] Results This patient has no known results.
[2021-02-12] MEDS ORDERED: NA CHLORIDE 0.9% 1,000 ML ONE (01:15)
[2021-02-12 01:50] LABS: Absolute Lymphocytes (CBC) 1.6 K/uL (0.7-4.9); Basophils % 0.7 % (0-1.3); Hematocrit 24.1 % (36.0-45.0); Lymphocytes % 28.9 % (15.3-44.8); RBC Red Blood Cell Count 3.29 M/uL (3.86-4.86)
[2021-02-12 01:55] LABS: Potassium 3.8 mmol/L (3.5-5.1)
[2021-02-12 02:33] LABS: Anisocytosis 1+; Blood Morphology Comment NOTED (NOT SEEN); Platelet Estimate ADEQ; White Blood Cell Scan OK (OK)
[2021-02-12 02:34] LABS: Hypochromasia 2+; Polychromasia 1+
--- NOTE | 2021-02-12 03:01 | ER ---
Nurse's Notes [facility] Name: Yazmin Monzon Age: 46 yrs Sex: Female : 1975 Arrival Date: 02/11/2021 Time: 21:59 Bed 9 Private MD: Diagnosis: Visual disturbance. Pelvic pain. Vaginal bleeding Presentation: 02/11 22:22 Chief complaint: Patient states: has had a few sores on her right arm and stomach and iw back from when she was here last month, has been more winded than normal since last weekend, was also throwing up at that time, and this time her vision is blurred, she noticed that tonight while she was driving , has a lot of vaginal bleeding and is on two control pills. Is worried her hemoglobin may be low again. Coronavirus screen: At this time, the client does not indicate any symptoms associated with coronavirus-19. Ebola Screen: Patient negative for fever greater than or equal to 101.5 degrees Fahrenheit, and additional compatible Ebola Virus Disease symptoms Patient denies exposure to infectious person. Patient denies travel to an Ebola-affected area in the 21 days before illness onset. No symptoms or risks identified at this time. Initial Sepsis Screen: Does the patient meet any 2 criteria? No. Patient's initial sepsis screen is negative. Does the patient have a suspected source of infection? No. Patient's initial sepsis screen is negative. Risk Assessment: Do you want to hurt yourself or someone else? Patient reports no desire to harm self or others. Onset of symptoms was February 04, 2021. 22:22 Method Of Arrival: Ambulatory iw 22:22 Acuity: GEORGETTE 3 iw Historical: - Allergies: 22:24 PENICILLINS; iw - PMHx: 22:24 Back pain; Endometrosis; iw - PSHx: 22:24 tubal ligation; iw - Immunization history:: Client reports having NOT received the Covid vaccine. - Social history:: Smoking status: Patient denies any tobacco usage or history of. Screenin/05 00:33 Abuse screen: Denies threats or abuse. Nutritional screening: No deficits noted. jb4 Tuberculosis screening: No symptoms or risk factors identified. Fall Risk None identified. Assessment: 00:33 General: Appears in no apparent distress. uncomfortable, Behavior is calm, cooperative, jb4 appropriate for age. Pain: Complains of pain in pelvis Pain radiates to low back area Pain currently is 8 out of 10 on a pain scale. Neuro: Level of Consciousness is awake, alert, obeys commands, Oriented to person, place, time, situation. Cardiovascular: Patient's skin is warm and dry. Respiratory: Airway is patent Respiratory effort is even, unlabored, Respiratory pattern is regular, symmetrical. GI: No signs and/or symptoms were reported involving the gastrointestinal system. : No signs and/or symptoms were reported regarding the genitourinary system. EENT: No signs and/or symptoms were reported regarding the EENT system. Derm: Skin is intact, Skin is pink, warm \T\ dry. Musculoskeletal: Circulation, motion, and sensation intact. Range of motion: intact in all extremities. 01:20 Reassessment: pt to CT scan via wheelchair accompanied by artificial breeding technician. bb 02:04 Reassessment: Patient appears in no apparent distress at this time. Patient and/or jb4 family updated on plan of care and expected duration. Pain level reassessed. Patient is alert, oriented x 3, equal unlabored respirations, skin warm/dry/pink. 03:07 Reassessment: Patient appears in no apparent distress at this time. Patient and/or jb4 family updated on plan of care and expected duration. Pain level reassessed. Patient is alert, oriented x 3, equal unlabored respirations, skin warm/dry/pink. Vital Signs: 02/11 22:22 BP 142 / 82; Pulse 112; Resp 18; Temp 98.2; Pulse Ox 100% on R/A; iw 02/12 00:34 BP 137 / 76; Pulse 84; Resp 16; Pulse Ox 100% on R/A; jb4 02:00 BP 119 / 89; Pulse 78; Resp 15; Pulse Ox 98% on R/A; jb4 Visual Acuity: 02:05 Left Eye Visual acuity 20/25, Pupil size 5 mm, Normal, React To Light, Reactive To jb4 Accomodation; Right Eye Visual acuity 20/25, Pupil size 5 mm, Normal, React To Light, Reactive To Accomodation; Both Eyes Visual acuity 20/20; With Lenses; ED Course: 02/11 21:59 Patient arrived in ED. wm 22:24 Triage completed. iw 22:25 Arm band placed on. iw 02/12 00:27 Renny Griffin MD is Attending Physician. pkl 00:29 Markus Mullen, RN is Primary Nurse. jb4 00:33 Patient has correct armband on for positive identification. Bed in low position. Call jb4 light in reach. Side rails up X 1. Pulse ox on. NIBP on. 01:10 Missed attempt(s): 20 gauge in left antecubital area. Bleeding controlled, band aid bb applied, catheter tip intact. 01:15 Initial lab(s) drawn, by me, sent to lab. T\T\S collected, blood band applied to patient. bb Inserted saline lock: 20 gauge in right antecubital area, using aseptic technique. Blood collected. 01:41 CT Head Brain wo Cont In Process Unspecified. EDMS 01:41 CT Abd/Pelvis - IV Contrast Only In Process Unspecified. EDMS 02:59 Whitney Tai MD is Referral Physician. pkl 03:07 No provider procedures requiring assistance completed. IV discontinued, intact, jb4 bleeding controlled, No redness/swelling at site. Pressure dressing applied. Administered Medications: 02:04 Drug: NS 0.9% 1000 ml Route: IV; Rate: 125 ml/hr; Site: right antecubital; jb4 03:08 Follow up: Response: No adverse reaction; IV Status: Order to discontinue infusion; IV jb4 Intake: 180ml Intake: 03:08 IV: 180ml; Total: 180ml. jb4 Outcome: 03:00 Discharge ordered by . pkl 03:07 Discharged to home ambulatory. jb4 03:07 Condition: stable 03:07 Discharge instructions given to patient, Instructed on discharge instructions, follow up and referral plans. Demonstrated understanding of instructions, follow-up care. 03:09 Patient left the ED. jb4 Signatures: Dispatcher [employer] EDMS Renny Griffin MD MD pkJanette Allen RN RN Meg Garcias RN Markus Car, RN RN jbSelena Castro Corrections: (The following items were deleted from the chart) 02/11 22:25 22:22 Chief complaint: Patient states: has had a few sores on her right arm and stomach iw and back from when she was here last month, has been more winded than normal since last weekend, was also throwing up at that time, and this time her vision is blurred, she noticed that tonight while she was driving , has a lot of vaginal bleeding and is on two control pills iw
--- NOTE | 2021-02-12 03:01 | EDPHYS ---
Physician Documentation [facility] Name: Yazmin Monzon Age: 46 yrs Sex: Female : 1975 Arrival Date: 02/11/2021 Time: 21:59 Bed 9 Private MD: ED Physician Renny Griffin HPI: 02/12 01:55 This 46 yrs old Female presents to ER via Ambulatory with complaints of Rash, pkl Blurred Vision. 01:55 The patient presents with pelvic pain, that is located in/on the left lower quadrant. pkl Onset: The symptoms/episode began/occurred 1 week(s) ago, and became worse today. Associated signs and symptoms: Pertinent positives: vaginal bleeding. Patient was admitted to the hospital for severe anemia ( Hb 4.2 ) for heavy vaginal bleeding about 1 month ago. Historical: - Allergies: 02/11 22:24 PENICILLINS; iw - PMHx: 22:24 Back pain; Endometrosis; iw - PSHx: 22:24 tubal ligation; iw - Immunization history:: Client reports having NOT received the Covid vaccine. - Social history:: Smoking status: Patient denies any tobacco usage or history of. ROS: 02/12 01:55 Positive for vaginal bleeding. pkl ENT: Negative for injury, pain, and discharge. Eyes: Positive for blurry vision. Neck: Negative for stiffness. Cardiovascular: Negative for chest pain. Respiratory: Negative for cough, shortness of breath. Abdomen/GI: Positive for of the left lower quadrant. Back: Negative for pain at rest. MS/extremity: Negative for acute changes. Skin: Negative for rash. Neuro: Negative for altered mental status, loss of consciousness. Exam: 01:55 Head/Face: Normocephalic, atraumatic. Eyes: Pupils equal round and reactive to light, pkl extra-ocular motions intact. Lids and lashes normal. Conjunctiva and sclera are non-icteric and not injected. Cornea within normal limits. Periorbital areas with no swelling, redness, or edema. ENT: Nares patent. No nasal discharge, no septal abnormalities noted. Tympanic membranes are normal and external auditory canals are clear. Oropharynx with no redness, swelling, or masses, exudates, or evidence of obstruction, uvula midline. Mucous membranes moist. Neck: Trachea midline, no thyromegaly or masses palpated, and no cervical lymphadenopathy. Supple, full range of motion without nuchal rigidity, or vertebral point tenderness. No Meningismus. Chest/axilla: Normal chest wall appearance and motion. Nontender with no deformity. No lesions are appreciated. Cardiovascular: Regular rate and rhythm with a normal S1 and S2. No gallops, murmurs, or rubs. Normal PMI, no JVD. No pulse deficits. Respiratory: Lungs have equal breath sounds bilaterally, clear to auscultation and percussion. No rales, rhonchi or wheezes noted. No increased work of breathing, no retractions or nasal flaring. 01:55 Abdomen/GI: Bowel sounds: normal, Palpation: soft, mild abdominal tenderness, in the left lower quadrant. 01:55 Back: Exam negative for acute changes. 01:55 : Exam negative for acute changes. 01:55 Musculoskeletal/extremity: Exam is negative for acute changes. 01:55 Skin: Exam negative for rash. 01:55 Neuro: Orientation: is normal, Mentation: is normal, Cranial nerves: grossly normal, Motor: is normal. Vital Signs: 02/11 22:22 BP 142 / 82; Pulse 112; Resp 18; Temp 98.2; Pulse Ox 100% on R/A; iw 08 00:34 BP 137 / 76; Pulse 84; Resp 16; Pulse Ox 100% on R/A; jb4 02:00 BP 119 / 89; Pulse 78; Resp 15; Pulse Ox 98% on R/A; jb4 Visual Acuity: 02:05 Left Eye Visual acuity 20/25, Pupil size 5 mm, Normal, React To Light, Reactive To jb4 Accomodation; Right Eye Visual acuity 20/25, Pupil size 5 mm, Normal, React To Light, Reactive To Accomodation; Both Eyes Visual acuity 20/20; With Lenses; MDM: 00:27 Patient medically screened. pkl 02:53 Data reviewed: vital signs, nurses notes. pkl 02:53 Data reviewed: lab test result(s), radiologic studies, CT scan. ED course: Discussed pkl lab and imaging studies with patient. Advised to follow up with Dr. Tai ( Opthalmology ) and Dr. Fong ( Ob- [facility] ) in 1 to 2 days. To return if necessary. Patient understood instructions. 02/12 00:46 Order name: CBC with Diff pkl 02/12 00:46 Order name: Chem 7; Complete Time: 02:10 pkl 02/12 00:46 Order name: CT Head Brain wo Cont pkl 02/12 00:48 Order name: Type And Screen pkl 02/12 01:54 Order name: CBC Smear Scan EDMS 02/12 02:56 Order name: CREATININE WHOLE BLOOD EDMS 02/12 00:48 Order name: CT Abd/Pelvis - IV Contrast Only pkl 02/12 01:09 Order name: Visual Acuity; Complete Time: 02:04 pkl Administered Medications: 02:04 Drug: NS 0.9% 1000 ml Route: IV; Rate: 125 ml/hr; Site: right antecubital; jb4 03:08 Follow up: Response: No adverse reaction; IV Status: Order to discontinue infusion; IV jb4 Intake: 180ml Disposition Summary: 02/12/21 03:00 Discharge Ordered Location: Home pkl Problem: new pkl Symptoms: have improved pkl Condition: Stable pkl Diagnosis - Visual disturbance. Pelvic pain. Vaginal bleeding pkl Followup: pkl - With: Whitney Tai MD - When: 1 - 2 days - Reason: Re-evaluation by your physician Forms: - Medication Reconciliation Form pkl - Thank You Letter pkl - Antibiotic Education pkl - Prescription Opioid Use pkl Signatures: Dispatcher [employer] Renny Caballero MD MD pkl Meg Devine, Markus Car RN, RN RN jb4
[2021-02-12 03:45] VITALS: TEMP 98.2
[2021-02-12 03:48] VITALS: BP 119/89; O2SAT 98
--- NOTE | 2021-02-12 12:32 | RAD REPORT ---
EXAM DESCRIPTION: CT Head COMPARISON: None. CLINICAL HISTORY: Blurring of vision TECHNIQUE: Axial images were obtained from skull base to vertex without intravenous contrast. Imag es viewed on bone and brain windows. Multiplanar reformats were performed. Automated exposure contr ol was utilized on this examination as a dose lowering technique. FINDINGS: Brain parenchyma, ventricles, dura, meninges, and extra-axial spaces: Ventricles and sulci are normal. No abnormal attenuation of brain parenchyma is present. No acute intracranial hemor rhage or abnormal extra-axial fluid collections are present. Vascular structures: No hyperdense arteries or veins. Calvarium, mastoid air cells, paranasal sinuses and orbits: The calvarium is normal. The mastoid air cells are clear. Visualized paranasal sinuses are unremarkable. Orbital structures are unremarkable. IMPRESSION: No acute intracranial abnormality. EXAM DESCRIPTION: CT Abdomen and Pelvis COMPARISON: None. CLINICAL HISTORY: Blurring of vision TECHNIQUE: CT of the abdomen and pelvis was acquired with IV contrast material. Coronal and sagitt al reconstructions were obtained. Automated exposure control was utilized on this examination as a dose lowering technique. FINDINGS: Lung bases: Clear. Liver: Multiple hypoenhancing lesions throughout the liver measuring up to 4.2 cm with areas of perip heral venous enhancement. Gallbladder and biliary: Normal gallbladder. Unremarkable biliary tree. Pancreas: Normal. Spleen: Normal. Adrenal glands: Normal adrenal glands. Kidneys: Normal kidneys Stomach and Small Bowel: The stomach and small bowel are normal. Urinary bladder: Normal. Uterus and Adnexa: Ill-defined uterine fibroids are noted. Colon and Appendix: The colon is unremarkable. No evidence of appendicitis. Retroperitoneum and lymph nodes: Normal. Vascular: Normal. Peritoneal cavity: No ascites or free air. Musculoskeletal and soft tissues: Soft tissues are unremarkable. No aggressive bone lesions. No com pression fracture. IMPRESSION: 1. No acute intra-abdominal abnormality. 2. Multiple hepatic hemangiomas are present. 3. Uterine fibroids. Electronically signed by: Josr Mann MD 02/12/2021 2:00 AM CDT Due to temporary technical issues with the PACS/Fluency reporting system, reports are being signed by the in house radiologist without review as a courtesy to ensure prompt reporting. The interpreting r adiologist is fully responsible for the content of the report.
== END 2021-02-12 03:09 | disposition home or self-care (01) ==
LOC: ER 21:57
DX: N93.9 Abnormal uterine and vaginal bleeding, unspecified (principal); H53.9 Unspecified visual disturbance; Z88.0 Allergy status to penicillin
CPT/HCPCS: 36415; 70450; 74177; 80048; 82565; 85025; 86850; 86870; 86900; 86901; 96360; 99284; J7030; Q9967

== ENCOUNTER 2021-02-25 18:53 | Emergency (ER) | payer SELFPAY ==
--- OUTSIDE RECORDS SUMMARY | 2021-02-25 18:57 | XMS REPORT | Continuity of Care Document ---
:1975 Author Organization [facility] t Address [address] [place] [address] Care Team Providers Name Role Phone Steven [...] ally from Medical request Branch for surgery [id number] Elderly Elderly Disease Active Overview: Univ ers multigravi multigravi 01-22 ICD10 it y of da da 00:00: Diagnosis [place] delivered delivered 00 Term Medi cr Contract [place] Branch Utility Post term Post term Disease Active Overview: Univers , , 01-22 ICD10 it y of delivered delivered 00:00: Diagnosis [place] 00 Term Medical Contract [place] [facility] Utility Tubal Tubal Disease Active Univers ligation ligation 01-20 ity of status status 00:00: [place] 00 Medical Branch First First Disease Active Overview: Univer s degree degree 01-20 ICD10 ity of perineal perineal 00:00: Diagnosis [place] as laceration laceration 00 Term Me dical during during Contract [place] Branch delivery delivery Utility Disease Active U [...] ic ic 00:00: [place] vaccinatio vaccinatio 00 In dical n and n and Branch inoculatio inoculatio n against n against influenza influenza History of History of Disease Resolve 2008-01-21 2015-04-11 Univers urinary urinary d 11-17 00:00:00 22:46:27 ity of tract tract 00:00: [place] infection infection 00 [facility] Branch History of History of Disease Resolve 2008-01-21 2015-04-11 Univers cardiovasc cardiovasc d - 00:00:00 22:46:27 ity of ular ular 00:00: [place] disorder disorder 00 Medica l Branch Alcoholism Alcoholism Disease Resolve 2008-01-21 2008-01-21 Univers in family in family d 5- 00:00:00 14:28:21 ity of 00:00: [place] 00 Medical Branch Supervisio Supervisio Disease Resolve 2008-0 2008-01-21 2008-01-21 Univers n of other n of other d 5-10 00:00:00 14:28:21 ity of normal normal 00:00: [place] 00 Medi cr [place] Disease Resolve 2008-01-21 2008-01-21 Univers with with d 5-10 00:00:00 14:28:21 ity of history of history of 00:00: [place] 00 Medica l Branch Encounter Encounter Disease [...] Quantity Comments Source Exposure to Not sure [facility] SARS-CoV-2 [facility] [place] (event) [place] Tobacco use and 2018-10-25 2018-10-25 Never used Universit y of exposure 00:00:00 00:00:00 [facility] [place] [facility] Alcohol intake 2018-10-25 2018-10-25 Current drinker Unive rsity of 00:00:00 00:00:00 of alcohol [facility] [place] (finding) [place] Alcohol Comment 2013-04-03 2013-04-03 wine 1 glass per Uni versity of 00:00:00 00:00:00 evening [facility] [place] [facility] Sex Ass[birth year] At [birth year] Universit y of 00:00:00 00:00:00 [facility] [place] [facility] Smoking Status Start Date Stop Date Source Never smoker [facility] Medications Ordered Filled Start Stop Current Ordering [...] Medical (21)/75 mg Branch (7) tablet medroxyPROG 0 Yes 10mg Take 1 Univ ers ESTERone [...] ity of capsule 00:00: [place] [facility] traMADOL 50 Yes 50mg Take [...] Branch needed for Pain (scale 4-6). HYDROcodone Yes Abnormal CT 1{tbl} Take 1 Tab Univers -acetaminop 9-24 scan, by mouth ity of hen (NORCO) 00:00: bladder every 6 [place] 10-325 mg 00 (six) Medical tablet hours as Branch needed for Pain (scale 4-6). Vital Signs Vital Name Observation Time Observation Value Comments Source Systolic blood 2020-11-14 02:30:00 160 mm[Hg] Univer sity of pressure [facility] [place] Branch Diastolic blood 2020-11-14 02:30:00 87 mm[Hg] Unive rsity of pressure [place] [facility] [place] Heart rate 2020-11-14 02:30:00 99 /min [facility] [place] [facility] [place] Body temperature 2020-11-14 02:30:00 37.06 Renetta Univ ersity of [place] [facility] [place] Respiratory rate 2020-11-14 02:30:00 18 /[facility] height 2020-11-14 02:30:00 177.8 cm [facility] [place] [facility] [place] Body weight 2020-11-14 02:30:00 86.183 kg [facility] [place] [facility] [place] BMI 2020-11-14 02:30:00 27.26 kg/m2 Universi ty [facility] Oxygen saturation in 2020-11-14 02:30:00 98 /min University of Arterial blood by [facility] Pulse oximetry Branch Systolic blood 2020-11-14 02:30:00 160 mm[Hg] Univer sity of pressure [facility] [place] [facility] Diastolic blood 2020-11-14 02:30:00 87 mm[Hg] Unive rsity of pressure [facility] [place] [facility] Heart rate 2020-11-14 02:30:00 99 /min [facility] [place] [facility] [place] Body temperature 2020-11-14 02:30:00 37.06 Renetta Univ [facility] Respiratory rate 2020-11-14 02:30:00 18 /[facility] [place] Body height 2020-11-14 02:30:00 177.8 cm [facility] [place] [facility] [place] Body weight 2020-11-14 02:30:00 86.183 kg Universi ty [facility] Medical [place] BMI 2020-11-14 02:30:00 27.26 kg/m2 Universi ty [facility] Oxygen saturation in 2020-11-14 02:30:00 98 /min University of Arterial blood by [place] [facility] Pulse oximetry Branch Procedures Procedure Date / Time Performed Performing Clinician Sourdiego e XR KNEE <3 VW LEFT 2020-11-14 02:50:39 Rajan Sommer [facility] Plan of Care Planned Activity Planned Date Details Comments Source Future Scheduled 2023 Screening for [facility] [place] Test 00:00:00 malignant neoplasm Medical B ranch of colon (procedure) [code = 156765397] Future Scheduled 2023 Screening for [facility] Test 00:00:00 malignant neoplasm Medical B ranch of colon (procedure) [code = 436129289] Future Scheduled 2021-03-11 [facility] ([facility] Ended[facility] [code Medical Branch = INFLUENZA VACCINE (Season Ended)] Future Scheduled 2021-03-11 [facility]00 (Season Ended) [code Medical Branch = INFLUENZA VACCINE (Season Ended)] Future Scheduled 2021-03-08 Screening for [facility] Test 00:00:00 malignant neoplasm Medical B ranch of cervix (procedure) [code = 386606133] Future Scheduled 2021-03-08 Screening for [facility] Test 00:00:00 malignant neoplasm Medical B ranch of cervix (procedure) [code = 641617878] Future Scheduled 2019-03-08 Screening for [facility] Test 00:00:00 malignant neoplasm Medical B ranch of breast (procedure) [code = [id number]] Future Scheduled 2019-03-08 Screening for [facility] Test 00:00:00 malignant neoplasm Medical B ranch of breast (procedure) [code = [id number]] Future Scheduled 1992-01-14 DTaP,Tdap,and Td [facility] Vaccines (1 - Tdap) Medical Branch [code = DTaP,Tdap,and Td Vaccines (1 - Tdap)] Future Scheduled 1992-01-14 DTaP,Tdap,and Td [facility]00 Vaccines (1 - Tdap) Medical Branch [code = DTaP,Tdap,and Td Vaccines (1 - Tdap)] Future Scheduled 1989 SARS-CoV-2 [facility] Test 00:00:00 (COVID-19) Vaccine Medical B ranch (1) [code = SARS-CoV-2 (COVID-19) Vaccine (1)] Future Scheduled 1989 SARS-CoV-2 [facility] Test 00:00:00 (COVID-19) Vaccine Medical B ranch (1) [code = SARS-CoV-2 (COVID-19) Vaccine (1)] Future Scheduled 1985 Depression screening [facility] [place] Test 00:00:00 (procedure) [code = Medical Branch 450026145] Future Scheduled 1985 Depression screening [facility] [place] Test 00:00:00 (procedure) [code = Medical Branch [id number]] Future Scheduled XR KNEE <3 VW LEFT [facility] [place] Test [code = 24291] Medical Branc h Encounters Start End Encounter Admission Attending Care Care Encounter Source Date/Time Date/Time Type Type Clinicians Facility Department ID 2020-11-13 2020-11-13 Emergency [facility] [id number] 21:32:00 22:27:00 Rajan Lindquist [id number] [place] [id number] [place] [id number] 2020-11-13 2020-11-13 Emergency [facility] [id number] 20:58:00 21:22:00 Cassidy Lindquist [id number] [place] [id number] [place] [id number] Results This patient has no known results.
[2021-02-25 20:01] LABS: Absolute Lymphocytes (CBC) 1.1 K/uL (0.7-4.9); Basophils % 0.4 % (0-1.3); Lymphocytes % 50.5 % (15.3-44.8); MPV 8.1 fL (7.6-11.3); RBC Red Blood Cell Count 2.98 M/uL (3.86-4.86)
[2021-02-25 20:19] LABS: ALT/SGPT 15 U/L (12-78); AST/SGOT 38 U/L (15-37); Albumin 3.4 g/dL (3.4-5.0); Alkaline Phosphatase 61 U/L (45-117); BUN Blood Urea Nitrogen 9 mg/dL (7-18); Bicarbonate 27 mmol/L (21-32); Bilirubin Direct 0.2 mg/dL (0-0.2); Bilirubin Total 0.5 mg/dL (0.2-1.0); Glucose Level 98 mg/dL (74-106); Magnesium 2.2 mg/dL (1.8-2.4); NT PRO-BNP 49 pg/mL (<125); Potassium 3.8 mmol/L (3.5-5.1); Protein, Total 7.2 g/dL (6.4-8.2); Sodium Level 136 mmol/L (136-145); Troponin (Emerg Dept Use Only) < 0.02 ng/mL (0.0-0.045)
[2021-02-25 20:52] LABS: Anisocytosis 1+; Blood Morphology Comment NOTED (NOT SEEN); Platelet Estimate ADEQ; Polychromasia SLIGHT; White Blood Cell Scan OK (OK)
--- NOTE | 2021-02-25 21:12 | RAD REPORT ---
EXAM DESCRIPTION: RAD - Chest Single View - 02/25/2021 8:18 pm CLINICAL HISTORY: DYSPNEA COMPARISON: April 2019 TECHNIQUE: AP portable chest image was obtained 02/25/2021 8:18 pm . FINDINGS: No acute lung parenchymal process. Interstitial pattern matches comparison. No failure or volume overload. Heart and vasculature are normal. No measurable pleural effusion and no pneumothorax. No acute bony abnormality seen. No acute aortic findings suspected. IMPRESSION: No acute cardiopulmonary process. No significant change from comparison study.
--- NOTE | 2021-02-25 23:11 | EDPHYS ---
Physician Documentation [facility] Name: Yazmin Monzon Age: 46 yrs Sex: Female : 1975 Arrival Date: 02/25/2021 Time: 18:57 Bed 13 Private MD: ED Physician Shari Chester HPI: 02/25 21:46 This 46 yrs old Female presents to ER via Ambulatory with complaints of Chest sp3 Tightness, Vomiting, Dizziness. 21:46 Old female with history of spina bifida and hypertension presents with a 2-day history sp3 of severe fatigue, dyspnea on exertion, near syncope. Patient has had anemia before secondary to uterine fibroids and persistent vaginal bleeding during her cycle. She is not currently on oral contraception medications by her OB GEN. She has no primary care physician. She is also had a 20+ pound weight loss history over the last 6 months. During her last visit here she had a CT scan of the head, abdomen and pelvis which were all normal. She is also recently had a ultrasound transvaginal demonstrating fibroids and a ovarian cyst. Her vaginal bleeding has improved with the OCPs however the fatigue has been persistent over the last several weeks. She presents today for evaluation of those symptoms in particular. On ROS patient denies fever, headache, URI symptoms, chest pain, abdominal pain, nausea, vomiting, diarrhea, melena, hematuria, any other bleeding, any other neuro symptoms, known sick contacts, or travel history.. Historical: - Allergies: 19:35 PENICILLINS; iw - Home Meds: 19:35 [place] 10-325 mg Oral tab every 4-6 hours [Active]; Soma Oral [Active]; iw lisinopril-hydrochlorothiazide oral [Active]; - PMHx: 19:35 Back pain; Endometrosis; iw - PSHx: 19:35 tubal ligation; iw - Immunization history:: Client reports having NOT received the Covid vaccine. - Social history:: Smoking status: Patient denies any tobacco usage or history of. ROS: 21:47 Eyes: Negative for injury, pain, redness, and discharge, ENT: Negative for injury, sp3 pain, and discharge, Neck: Negative for injury, pain, and swelling, Cardiovascular: Negative for chest pain, palpitations, and edema, Abdomen/GI: Negative for abdominal pain, nausea, vomiting, diarrhea, and constipation, Back: Negative for injury and pain, MS/Extremity: Negative for injury and deformity, Skin: Negative for injury, rash, and discoloration, Neuro: Negative for headache, weakness, numbness, tingling, and seizure, Psych: Negative for depression, anxiety, suicide ideation, homicidal ideation, and hallucinations, Allergy/Immunology: Negative for hives, rash, and allergies, Endocrine: Negative for neck swelling, polydipsia, polyuria, polyphagia, and marked weight changes. 21:47 Constitutional: Positive for fatigue, malaise, weight loss, Negative for body aches, chills, fever, poor PO intake. 21:47 Respiratory: Positive for dyspnea on exertion, Negative for cough, pleurisy, sputum production, wheezing. 23:47 All other systems are negative. sp3 Exam: 21:48 Constitutional: This is a well developed, well nourished patient who is awake, alert, sp3 and in no acute distress. Head/Face: Normocephalic, atraumatic. 21:48 ENT: Nares patent. No nasal discharge, no septal abnormalities noted. External auditory canals are clear. Oropharynx with no redness, swelling, or masses, exudates, or evidence of obstruction, uvula midline. Mucous membranes moist. Neck: Trachea midline, no thyromegaly or masses palpated, and no cervical lymphadenopathy. Supple, full range of motion without nuchal rigidity, or vertebral point tenderness. No Meningismus. Chest/axilla: Normal chest wall appearance and motion. Nontender with no deformity. No lesions are appreciated. Cardiovascular: Regular rate and rhythm with a normal S1 and S2. No gallops, murmurs, or rubs. Normal PMI, no JVD. No pulse deficits. Respiratory: Lungs have equal breath sounds bilaterally, clear to auscultation and percussion. No rales, rhonchi or wheezes noted. No increased work of breathing, no retractions or nasal flaring. Abdomen/GI: Soft, non-tender, with normal bowel sounds. No distension or tympany. No guarding or rebound. No evidence of tenderness throughout. MS/ Extremity: Pulses equal, no cyanosis. Neurovascular intact. Full, normal range of motion. Neuro: Awake and alert, GCS 15, oriented to person, place, time, and situation. Cranial nerves II-XII grossly intact. Motor strength 5/5 in all extremities. Sensory grossly intact. Cerebellar exam normal. Normal gait. Psych: Awake, alert, with orientation to person, place and time. Behavior, mood, and affect are within normal limits. 21:48 Eyes: Exam is negative for hyphema, nystagmus, visual changes, Extraocular movements: intact throughout, Conjunctiva: pale. 21:48 Skin: Appearance: Color: pale. Vital Signs: 19:31 BP 93 / 67; Pulse 67; Resp 16; Temp 98.1; Pulse Ox 100% on R/A; Weight 77.11 kg; Height iw 5 ft. 10 in. (177.80 cm); Pain 0/10; 21:31 BP 97 / 68; Pulse 78; Resp 17; Temp 98; Pulse Ox 100% on R/A; ch4 22:45 BP 97 / 64; Pulse 74; Resp 18; Temp 98.4; Pulse Ox 100% on R/A; ch4 02/26 00:05 BP 122 / 60; Pulse 70; Resp 18; Temp 98.3; Pulse Ox 100% on R/A; ch4 01:20 BP 103 / 64; Pulse 80; Resp 16; Temp 98.2; Pulse Ox 100% on R/A; ch4 02:47 BP 105 / 66; Pulse 77; Resp 17; Temp 98.2; Pulse Ox 100% on R/A; ch4 05:17 BP 98 / 71; Pulse 79; Resp 16; Temp 97.9; Pulse Ox 100% on R/A; ch4 05:38 BP 109 / 58; Pulse 70; Resp 17; Temp 98.3; Pulse Ox 100% on R/A; ch4 07:00 BP 104 / 60; Pulse 74; Resp 18; Pulse Ox 100% on R/A; tr6 11:41 BP 132 / 80; Pulse 64; Resp 18; Temp 97.9; Pulse Ox 100% on R/A; tr6 02/25 19:31 Body Mass Index 24.39 (77.11 kg, 177.80 cm) iw MDM: 02/25 20:57 Patient medically screened. sp3 21:49 Data reviewed: vital signs, nurses notes, lab test result(s), EKG, radiologic studies. sp3 ED course: Patient with no other symptoms except fatigue. Hemoglobin demonstrates to be 6.6 and I will transfuse her 2 units of PRBCs. Coagulation studies are normal. No other significant laboratory findings. This patient has had multiple imaging modalities in the past without evidence of any significant findings including cancer/mass, no other imaging is indicated at this time. Today's EKG is sinus rhythm at 93 bpm with normal intervals, normal QRS, normal axis, normal ST/T segments. Patient is comfortable with the plan and will follow up with her OB GEN possible further surgical intervention for her dysfunctional uterine bleeding. Plan is to discharge patient after transfusion.. 23:08 ED course: Patient's COVID-19 test returned positive. Patient was given the diagnosis sp3 and told to isolate for 10 additional days. Patient's plan is still to discharge after transfusion is complete.. 02/25 19:39 Order name: Basic Metabolic Panel; Complete Time: 20:55 02/25 19:39 Order name: CBC with Diff; Complete Time: 20:55 02/25 19:39 Order name: LFT's; Complete Time: 20:55 02/25 19:39 Order name: Magnesium; Complete Time: 20:55 02/25 19:39 Order name: NT PRO-BNP; Complete Time: 20:55 02/25 19:39 Order name: PT-INR; Complete Time: 20:55 02/25 19:39 Order name: Troponin (emerg Dept Use Only); Complete Time: 20:55 02/25 19:54 Order name: COVID-19 : Document "Date of Symptom Onset" if Symptomatic. em 02/25 20:52 Order name: CBC Smear Scan; Complete Time: 20:55 [facility] 02/25 21:17 Order name: PRBC sp3 02/25 21:18 Order name: ABO/RH typing [facility] 02/25 21:18 Order name: Antibody Screen [facility] 02/25 19:39 Order name: XRAY Chest (1 view); Complete Time: 21:57 02/25 19:39 Order name: EKG; Complete Time: 19:40 02/25 19:39 Order name: Cardiac monitoring; Complete Time: 21:08 02/25 19:39 Order name: EKG - Nurse/Tech; Complete Time: 19:58 02/25 19:39 Order name: IV Saline Lock; Complete Time: 19:58 02/25 19:39 Order name: Labs collected and sent; Complete Time: 19:58 iw 02/25 19:39 Order name: O2 Per Protocol; Complete Time: 21:08 iw 02/25 19:39 Order name: O2 Sat Monitoring; Complete Time: 21:08 iw 02/25 21:17 Order name: Transfuse; Complete Time: 00:43 sp3 02/25 22:51 Order name: Antibody Identification EDMS 02/25 22:55 Order name: SARS-COV-2 RT PCR; Complete Time: 23:08 EDMS 02/26 06:35 Order name: Transfuse; Complete Time: 11:42 ch4 Administered Medications: No medications were administered Disposition Summary: 02/25/21 23:11 Discharge Ordered Location: Home sp3 Condition: Stable sp3 Diagnosis - SARS-associated coronavirus as the cause of diseases classified elsewhere sp3 - Anemia, unspecified sp3 Followup: sp3 - With: Private Physician - When: - Reason: Re-evaluation by your physician Discharge Instructions: - Discharge Summary Sheet sp3 - Anemia sp3 - Blood Transfusion, Adult sp3 - COVID-19 sp3 - 10 Things You Can Do to Manage Your COVID-19 Symptoms at Home - [facility] sp3 Forms: - Medication Reconciliation Form sp3 - Thank You Letter sp3 - Antibiotic Education sp3 - Prescription Opioid Use sp3 Signatures: Dispatcher [employer] Meg Junior, RN RN iw Baldo Jang, CAN SLIDER-C CAN SLIDER-Cla1 Shari Chester sp3 Pily Swift, RN RN ch4 Corrections: (The following items were deleted from the chart) 21:23 19:54 CORONAVIRUS ordered. EDMS EDMS 22:03 21:17 TYPE AND SCREEN+BB.LAB.BRZ ordered. EDMS EDMS 02/26 00:32 02/25 23:49 Chest Abdomen Pelvis W Con+CT.RAD.BRZ ordered. EDMS EDMS
--- NOTE | 2021-02-25 23:11 | ER ---
Nurse's Notes [facility] Name: Yazmin Monzon Age: 46 yrs Sex: Female : 1975 Arrival Date: 02/25/2021 Time: 18:57 Bed 13 Private MD: Diagnosis: SARS-associated coronavirus as the cause of diseases classified elsewhere;Anemia, unspecified Presentation: 02/25 19:31 Chief complaint: Patient states: feels very weak can only walk ten feet at a time iw before she gets faint, gets very nauseous , started about a week ago and has lost a lot of weight, went to PCP yesterday and last 20 pounds in a month, has hx of vaginal bleeding , has not been bleeding today and has only had mild bleeding this past week, is currently on two control pills , had a low grade fever this past week, was exposed to COVID about two weeks ago. Coronavirus screen: Client presents with at least one sign or symptom that may indicate coronavirus-19. Ebola Screen: Patient negative for fever greater than or equal to 101.5 degrees Fahrenheit, and additional compatible Ebola Virus Disease symptoms Patient denies exposure to infectious person. Patient denies travel to an Ebola-affected area in the 21 days before illness onset. No symptoms or risks identified at this time. Initial Sepsis Screen: Does the patient meet any 2 criteria? No. Patient's initial sepsis screen is negative. Does the patient have a suspected source of infection? No. Patient's initial sepsis screen is negative. Risk Assessment: Do you want to hurt yourself or someone else? Patient reports no desire to harm self or others. Onset of symptoms was February 18, 2021. 19:31 Method Of Arrival: Ambulatory iw 19:31 Acuity: GEORGETTE 3 iw Historical: - Allergies: 19:35 PENICILLINS; iw - Home Meds: 19:35 [place] 10-325 mg Oral tab every 4-6 hours [Active]; Soma Oral [Active]; iw lisinopril-hydrochlorothiazide oral [Active]; - PMHx: 19:35 Back pain; Endometrosis; iw - PSHx: 19:35 tubal ligation; iw - Immunization history:: Client reports having NOT received the Covid vaccine. - Social history:: Smoking status: Patient denies any tobacco usage or history of. Assessment: 21:31 General: Appears comfortable, Behavior is calm, cooperative, anxious. Pain: Complains ch4 of pain in abdomen Pain at worst was 6 out of 10 on a pain scale. Pain began 2-3 days ago. Neuro: No deficits noted. Cardiovascular: Reports chest pain, shortness of breath. Respiratory: Reports shortness of breath on exertion. GI: Reports vomiting. : No deficits noted. EENT: No deficits noted. Derm: Rash noted that is on chest and abdomen Reports. Musculoskeletal: No deficits noted. 02/26 00:57 Reassessment: pending blood transfusion, pt will have to have blood sent off to [facility] due to antibodies in blood. 07:00 Reassessment: assumed care of pt resting comfortably in bed, receiving first unit of tr6 blood. pt denies pain and denies need for assistance at this time. VSS. pt educated on POC and verbalized understanding. will continue to monitor. Vital Signs: 02/25 19:31 BP 93 / 67; Pulse 67; Resp 16; Temp 98.1; Pulse Ox 100% on R/A; Weight 77.11 kg; Height iw 5 ft. 10 in. (177.80 cm); Pain 0/10; 21:31 BP 97 / 68; Pulse 78; Resp 17; Temp 98; Pulse Ox 100% on R/A; ch4 22:45 BP 97 / 64; Pulse 74; Resp 18; Temp 98.4; Pulse Ox 100% on R/A; ch4 02/26 00:05 BP 122 / 60; Pulse 70; Resp 18; Temp 98.3; Pulse Ox 100% on R/A; ch4 01:20 BP 103 / 64; Pulse 80; Resp 16; Temp 98.2; Pulse Ox 100% on R/A; ch4 02:47 BP 105 / 66; Pulse 77; Resp 17; Temp 98.2; Pulse Ox 100% on R/A; ch4 05:17 BP 98 / 71; Pulse 79; Resp 16; Temp 97.9; Pulse Ox 100% on R/A; ch4 05:38 BP 109 / 58; Pulse 70; Resp 17; Temp 98.3; Pulse Ox 100% on R/A; ch4 07:00 BP 104 / 60; Pulse 74; Resp 18; Pulse Ox 100% on R/A; tr6 11:41 BP 132 / 80; Pulse 64; Resp 18; Temp 97.9; Pulse Ox 100% on R/A; tr6 02/25 19:31 Body Mass Index 24.39 (77.11 kg, 177.80 cm) ED Course: 02/25 18:57 Patient arrived in ED. mr 19:35 Triage completed. iw 19:36 Arm band placed on. iw 19:54 EKG done, by ED staff, reviewed by Shari Chester. 3 20:02 Initial lab(s) drawn, by nm, sent to lab. Inserted saline lock: 22 gauge in right iw antecubital area, using aseptic technique. Blood collected. 20:17 XRAY Chest (1 view) In Process Unspecified. EDMS 20:46 Shari Chester is Attending Physician. 3 20:48 Pily Swift, RN is Primary Nurse. [facility] 21:09 COVID-19 : Document "Date of Symptom Onset" if Symptomatic. Sent. ch4 21:21 ABO/RH typing Sent. ch4 21:21 Antibody Screen Sent. [facility] 02/26 09:00 Consent for blood and/or blood product transfusion explained by staff, explained by tr6 physician, signed by patient. 09:57 Patient has correct armband on for positive identification. Fall risk band placed. tr6 Placed in gown. Bed in low position. Call light in reach. Side rails up X2. surveillance system monitor on. Pulse ox on. NIBP on. 11:41 IV discontinued, intact, bleeding controlled, No redness/swelling at site. Pressure tr6 dressing applied. Patient maintains SpO2 saturation greater than 95% on room air. Administered Medications: No medications were administered Outcome: 02/25 23:11 Discharge ordered by . sp3 02/26 11:47 Patient left the ED. tr6 Signatures: Dispatcher [employer] EDMN Anuja Castro Edgar, RN RN Meg Haider, MARIBEL LÓPEZ Sheila Fonseca formerly [facility] [place] Taveras RN RN tr6 Shari Chester 3 Pily Swift, RN RN [facility] Corrections: (The following items were deleted from the chart) 02/25 21:23 21:21 CORONAVIRUS drawn and sent. [facility] EDMN
[2021-02-26] MEDS ORDERED: NA CHLORIDE 0.9% 500 ML ONE (00:19)
--- NOTE | 2021-02-26 08:31 | EKG ---
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
[2021-02-26] MEDS ORDERED: NA CHLORIDE 0.9% 250 ML ONE (09:35)
[2021-02-26 11:52] VITALS: O2SAT 100
[2021-02-26 12:11] VITALS: BP 132/80; TEMP 97.9
== END 2021-02-26 11:47 | disposition home or self-care (01) ==
LOC: ER 18:53
DX: U07.1 COVID-19 (principal); D64.9 Anemia, unspecified; Z88.0 Allergy status to penicillin
CPT/HCPCS: 36415; 71045; 80048; 80076; 83735; 83880; 84484; 85025; 85610; 86850; 86870; 86900; 86901; 86922; 93005; 99285; J7050; P9016; U0003

== ENCOUNTER 2021-03-08 04:38 | Emergency (ER) | payer SELFPAY ==
--- OUTSIDE RECORDS SUMMARY | 2021-03-08 04:42 | XMS REPORT | Continuity of Care Document ---
:1975 Author Organization [facility] t Address [address] [place] [address] Care Team Providers Name Role Phone Steven Grfifin MD Primary Care Physician Singer SALGUERO Attending Clinician Iam MUÑOZ S Attending Clinician Problems Condition Condition Condition Status Onset Resolution Last Treating Co mments Source Name Details Category Date Date Treatment Clinician Date Screening Screening Disease Active Overview: Univers for for 03-15 Added ity of colorectal colorectal 00:00: automatic [place] cancer cancer 00 ally from Medical request Branch for surgery [id number] Elderly Elderly Disease Active Overview: Univ ers multigravi multigravi 15 ICD10 it y of da da 00:00: Diagnosis [place] delivered delivered 00 Term Medi cr Curve Cleaner Branch Utility Post term Post term Disease Active Overview: Univers , , 01-22 ICD10 it y of delivered delivered 00:00: Diagnosis [place] 00 Term Medical Curve Cleaner Branch Utility Tubal Tubal Disease Active Univers ligation ligation 01-20 ity of status status 00:00: [place] 00 Medical Branch First First Disease Active Overview: Univer s degree degree 13 ICD10 ity of perineal perineal 00:00: Diagnosis [place] as laceration laceration 00 Term Me dical during during Curve Cleaner Branch delivery delivery Utility Disease Active U [...] Overweight Disease Resolve 2008-01-21 2015-04-11 Univers d -10 00:00:00 22:46:27 ity of 00:00: [place] 00 [...] ic ic 00:00: [place] vaccinatio vaccinatio 00 La dical n and n and Branch inoculatio inoculatio n against n against influenza influenza History of History of Disease Resolve 2008-01-21 2015-04-11 Univers urinary urinary d 11-17 00:00:00 22:46:27 ity of tract tract 00:00: [place] infection infection 00 [facility] Branch History of History of Disease Resolve [...] 00:00:00 14:28:21 ity of normal normal 00:00: [place] 00 Medi cr Branch Disease Resolve 2008-01-21 2008-01-21 Univers with with d 5-10 00:00:00 14:28:21 ity of history of history of 00:00: [facility] 00 Medica l Branch Encounter Encounter Disease Resolve 2008-01-21 2015-04-11 Univers for for d 5-10 00:00:00 22:46:27 [place] screening screening 00 Medi cr of mother of mother Bran ch Allergies, Adverse Reactions, Alerts Allergy Allergy Status Severity Reaction(s) Onset Inactive Treating Comm ents Source Name Type Date Date Clinician Lionel Méndez Active Unknown - Uni vers ins ty to See comments 03-08 ity of adverse 00:00: [place] reaction 00 Medical s Branch Social History Social Habit Start Date Stop Date Quantity Comments Source Exposure to Not sure [facility] SARS-CoV-2 [facility] (event) [place] Tobacco use and 2018-10-25 2018-10-25 Never used Universit y of exposure 00:00:00 00:00:00 [facility] Alcohol intake 2018-10-25 2018-10-25 Current drinker Unive rsity of 00:00:00 00:00:[address] [facility] (finding) [place] Alcohol Comment 2013-04-03 2013-04-03 wine 1 glass per Uni versity of 00:00:00 00:00:[address] [facility] Sex Ass[birth year] At [birth year] Universit y of 00:00:00 00:00:[address] [facility] Smoking Status Start Date Stop Date Source Never smoker [facility] Medications Ordered Filled Start Stop Current [...] 6 mg 8-09 ity of capsule 00:00: [place] [facility] tiZANidine 0 Yes Univers 6 mg 8-09 ity of capsule 00:00: [place] [facility] traMADOL 50 Yes 50mg Take [...] Branch needed for Pain (scale 4-6). HYDROcodone 2012-[address] 1{tbl} Take 1 Tab Univers -acetaminop 9-24 scan, by mouth ity of hen (NORCO) 00:00: bladder every 6 [place] 10-325 mg 00 (six) Medical tablet hours as Branch needed for Pain (scale 4-6). Vital Signs Vital Name Observation Time Observation Value Comments Source Systolic blood 2020-11-14 02:30:00 160 mm[Hg] Univer sity of pressure [facility] Diastolic blood 2020-11-14 02:30:00 87 mm[Hg] Unive rsity of pressure [place] [facility] [place] Heart rate 2020-11-14 02:30:00 99 /min Universi ty of [place] [facility] [place] Body temperature 2020-11-14 02:30:00 37.06 Renetta Univ ersity of [place] [facility] [place] Respiratory rate 2020-11-14 02:30:00 18 /min [facility] Body height 2020-11-14 02:30:00 177.8 cm Universi ty of [place] [facility] [place] Body weight 2020-11-14 02:30:00 86.183 kg Universi ty of [place] [facility] [place] BMI 2020-11-14 02:30:00 27.26 kg/m2 Universi ty of [facility] Oxygen saturation in 2020-11-14 02:30:00 98 /min University of Arterial blood by [facility] Pulse oximetry Branch Systolic blood 2020-11-14 02:30:00 160 mm[Hg] Univer sity of [facility] Diastolic blood 2020-11-14 02:30:00 87 mm[Hg] Unive rsity of [facility] Heart rate 2020-11-14 02:30:00 99 /min Universi ty of [place] [facility] [place] Body temperature 2020-11-14 02:30:00 37.06 [facility] Respiratory rate 2020-11-14 02:30:00 18 /min [facility] Body height 2020-11-14 02:30:00 177.8 cm Universi ty of [place] [facility] [place] Body weight 2020-11-14 02:30:00 86.183 kg Universi ty [facility] [place] [facility] Medical [place] BMI 2020-11-14 02:30:00 27.26 kg/m2 Universi ty [facility] Oxygen saturation in 2020-11-14 02:30:00 98 /min University of Arterial blood by [place] hi5 cr Pulse oximetry Branch Procedures Procedure Date / Time Performed Performing Clinician Sourdiego e XR KNEE <3 VW LEFT 2020-11-14 02:50:39 Rajan Sommer [facility] Plan of Care Planned Activity Planned Date Details Comments Source Future Scheduled 2023 Screening for [facility] [place] Test 00:00:00 malignant neoplasm Medical B ranch of colon (procedure) [code = 223397230] Future Scheduled 2023 Screening for [facility] Test 00:00:00 malignant neoplasm Medical B ranch of colon (procedure) [code = 026817889] Future Scheduled 2021-03-11 [facility] ([facility] Ended) [code Medical Branch = INFLUENZA VACCINE (Season Ended)] Future Scheduled 2021-03-11 [facility] (Season Ended) [code Medical Branch = INFLUENZA VACCINE (Season Ended)] Future Scheduled 2021-03-08 Screening for [facility] Test 00:00:00 malignant neoplasm Medical B ranch of cervix (procedure) [code = [id number]] Future Scheduled 2021-03-08 Screening for [facility] Test 00:00:00 malignant neoplasm Medical B ranch of cervix (procedure) [code = [id number]] Future Scheduled 2019-03-08 Screening for [facility] Test 00:00:00 malignant neoplasm Medical B ranch of breast (procedure) [code = 670617552] Future Scheduled 2019-03-08 Screening for [facility] Test 00:00:00 malignant neoplasm Medical B ranch of breast (procedure) [code = 581421299] Future Scheduled 1992-01-14 DTaP[facility]Tdap,and Td [facility] Vaccines (1 - Tdap) Medical Branch [code = DTaP,Tdap,and Td Vaccines (1 - Tdap)] Future Scheduled 1992-01-14 [facility]and Td [facility] Vaccines (1 - Tdap) Medical Branch [code = DTaP,Tdap,and Td Vaccines (1 - Tdap)] Future Scheduled 1989 SARS-CoV-2 [facility] Test 00:00:00 (COVID-19) Vaccine Medical B ranch (1) [code = SARS-CoV-2 (COVID-19) Vaccine (1)] Future Scheduled 1989 SARS-CoV-2 [facility] Test 00:00:00 (COVID-19) Vaccine Medical B ranch (1) [code = SARS-CoV-2 (COVID-19) Vaccine (1)] Future Scheduled 1985 Depression screening [facility] Test 00:00:00 (procedure) [code = Medical Branch [id number]] Future Scheduled 1985 Depression screening [facility] [place] Test 00:00:00 (procedure) [code = Medical Branch [id number]] Future Scheduled XR KNEE <3 VW LEFT Unive rs[facility] of [place] Test [code = 66393] Medical Branc h Encounters Start End Encounter Admission Attending Care Care Encounter Source Date/Time Date/Time Type Type Clinicians Facility Department ID 2020-11-13 2020-11-13 Emergency [facility] [id number] 21:32:00 22:27:00 Rajan Lindquist [id number] [place] [id number] [place] [id number] 2020-11-13 2020-11-13 [facility] [id number] 20:58:00 21:22:00 Cassidy Lindquist [id number] [place] [id number] [place] [id number] Results This patient has no known results.
[2021-03-08 07:19] LABS: Absolute Lymphocytes (CBC) 2.4 K/uL (0.7-4.9); Basophils % 1.3 % (0-1.3); Lymphocytes % 47.3 % (15.3-44.8); MPV 7.3 fL (7.6-11.3); RBC Red Blood Cell Count 4.08 M/uL (3.86-4.86)
--- NOTE | 2021-03-08 08:41 | EDPHYS ---
Physician Documentation [facility] Name: Yazmin Monzon Age: 46 yrs Sex: Female : 1975 Arrival Date: 03/08/2021 Time: 04:44 Bed Waiting Private MD: ED Physician Franco Kelly HPI: 03/08 08:51 This 46 yrs old Female presents to ER via Ambulatory with complaints of S/S kb of Covid, Cough, "Low Blood". 08:51 The patient or guardian reports cough, that is intermittent, described as moderate, kb with no sputum. Onset: The symptoms/episode began/occurred 10 day(s) ago. Severity of symptoms: At their worst the symptoms were moderate, in the emergency department the symptoms are unchanged. Modifying factors: The symptoms are alleviated by nothing, the symptoms are aggravated by nothing. Associated signs and symptoms: The patient has no apparent associated signs or symptoms. The patient has not experienced similar symptoms in the past. The patient has been recently seen at the [facility] Emergency Department, a couple of weeks ago. Pt states she was diagnosed with covid and her cough seems to be getting worse instead of better so she wanted to make sure she hasn't developed pneumonia. Also concerned about blood levels so wants her hemaglobin checked. . - Immunization history:: Client reports having NOT received the Covid vaccine. ROS: 08:51 Constitutional: Negative for fever, chills, and weight loss. kb 08:51 Respiratory: Positive for cough, Negative for dyspnea on exertion, hemoptysis, orthopnea, pleurisy, shortness of breath, sputum production, wheezing. 08:51 All other systems are negative. Exam: 08:51 Constitutional: This is a well developed, well nourished patient who is awake, alert, kb and in no acute distress. Head/Face: Normocephalic, atraumatic. ENT: Moist Mucous membranes Cardiovascular: Regular rate and rhythm with a normal S1 and S2. No gallops, murmurs, or rubs. No pulse deficits. Respiratory: Respirations even and unlabored. No increased work of breathing, no retractions or nasal flaring. Skin: Warm, dry with normal turgor. Normal color. MS/ Extremity: Pulses equal, no cyanosis. Neurovascular intact. Full, normal range of motion. Neuro: Awake and alert, GCS 15, oriented to person, place, time, and situation. Moves all extremities. Normal gait. Psych: Awake, alert, with orientation to person, place and time. Behavior, mood, and affect are within normal limits. Vital Signs: 04:50 BP 113 / 79; Pulse 83; Resp 18; Temp 97.5; Pulse Ox 100% on R/A; da3 MDM: 07:06 Patient medically screened. kb 08:50 Data reviewed: vital signs, nurses notes. Data interpreted: Pulse oximetry: on room air kb is 100 %. Interpretation: normal. Counseling: I had a detailed discussion with the patient and/or guardian regarding: the historical points, exam findings, and any diagnostic results supporting the discharge/admit diagnosis, lab results, radiology results, the need for outpatient follow up, a family practitioner, to return to the emergency department if symptoms worsen or persist or if there are any questions or concerns that arise at home. 03/08 07:07 Order name: CBC with Diff kb 03/08 07:07 Order name: Chest Pa And Lat (2 Views) XRAY kb Administered Medications: No medications were administered Disposition: 03/09 05:10 Co-signature as Attending Physician, Franco Kelly MD. [email or web address] Disposition Summary: 03/08/21 08:40 Discharge Ordered Location: Home kb Condition: Stable kb Diagnosis - Coronavirus infection, unspecified kb Followup: kb - With: Emergency Department - When: As needed - Reason: Worsening of condition Followup: kb - With: Private Physician - When: 2 - 3 days - Reason: Recheck today's complaints, Continuance of care, Re-evaluation by your physician Discharge Instructions: - Discharge Summary Sheet kb - Viral Respiratory Infection, Uicy-Pz-Dkce kb - COVID-19 kb Forms: - Medication Reconciliation Form kb - Thank You Letter kb - Antibiotic Education kb - Prescription Opioid Use kb - Work release form eb Prescriptions: - Tessalon Perles 100 mg Oral Capsule - take 1 capsule by ORAL route every 8 hours As needed; 15 capsule; Refills: 0, kb Product Selection Permitted Signatures: Dispatcher [employer] Shi Baugh, MAGGYC Franco Jarrell MD MD 7 Destin Garner, RN RN da3
--- NOTE | 2021-03-08 08:41 | ER ---
Nurse's Notes [facility] Name: Yazmin Monzon Age: 46 yrs Sex: Female : 1975 Arrival Date: 03/08/2021 Time: 04:44 Bed Waiting Private MD: Diagnosis: Coronavirus infection, unspecified Presentation: 03/08 04:48 Chief complaint: Patient states: general malase. Coronavirus screen: Client denies da3 travel out of the [place] in the last 14 days. fatigue, headache. Ebola Screen: No symptoms or risks identified at this time. Risk Assessment: Do you want to hurt yourself or someone else? Patient reports no desire to harm self or others. 04:48 Method Of Arrival: Ambulatory da3 04:48 Acuity: GEORGETTE 5 da3 Triage Assessment: 04:50 General: Appears in no apparent distress. comfortable, Behavior is calm, cooperative. da3 - Immunization history:: Client reports having NOT received the Covid vaccine. Screenin:56 Abuse screen: Denies threats or abuse. Denies injuries from another. Nutritional ss screening: No deficits noted. Tuberculosis screening: Never had TB. Fall Risk None identified. Vital Signs: 04:50 BP 113 / 79; Pulse 83; Resp 18; Temp 97.5; Pulse Ox 100% on R/A; da3 ED Course: 04:44 Patient arrived in ED. wm 04:49 Triage completed. da3 05:07 Burke Baehna is Primary Nurse. wg 07:06 Shi Van FNP-C is PHCP. kb 07:06 Franco Kelly MD is Attending Physician. kb 08:05 Chest Pa And Lat (2 Views) XRAY In Process Unspecified. EDMS 08:56 No provider procedures requiring assistance completed. Patient did not have IV access ss during this emergency room visit. 08:56 Patient has correct armband on for positive identification. Bed in low position. Call ss light in reach. Administered Medications: No medications were administered Outcome: 08:40 Discharge ordered by . kb 08:56 Discharged to home ambulatory. ss 08:56 Condition: good 08:56 Discharge instructions given to patient, Instructed on discharge instructions, follow up and referral plans. medication usage, Demonstrated understanding of instructions, follow-up care, medications, Prescriptions given X 1. 08:57 Patient left the ED. ss Signatures: Dispatcher [employer] EDMS Shi Van, BETSY-C BETSY-Gris Rodriguez, RN RN ss Selena Atwood David, RN RN da3 Burke Bahena
[2021-03-08 09:04] VITALS: BP 113/79; TEMP 97.5; O2SAT 100
--- NOTE | 2021-03-08 09:16 | RAD REPORT ---
EXAM DESCRIPTION: Herlinda Celis (2 Views)03/08/2021 8:05 am CLINICAL HISTORY: Cough COMPARISON: February 25, 2021 FINDINGS: The lungs appear clear of acute infiltrate. The heart is normal size IMPRESSION: No acute abnormalities displayed
[2021-03-08 09:43] LABS: Blood Morphology Comment NOT SEEN (NOT SEEN); Platelet Estimate ADEQ
== END 2021-03-08 08:57 | disposition home or self-care (01) ==
LOC: ER 04:38
DX: U07.1 COVID-19 (principal)
CPT/HCPCS: 36415; 71046; 85025; 99283

== ENCOUNTER 2021-07-13 17:49 | Emergency (ER) | payer SELFPAY ==
--- OUTSIDE RECORDS SUMMARY | 2021-07-13 17:51 | XMS REPORT | Continuity of Care Document ---
:1975 Author Organization [facility] t Address [address] [place] [address] Care Team Providers Name Role Phone Steven Griffin MD Primary Care Physician DOCTOR UNASSIGNED, NAME Attending Clinician Unavailable Singer SALGUERO Attending Clinician Lore Vitale MD Attending Clinician GIUSEPPE Attending Clinician Unavailable Shady LEMUS Attending Clinician Unavailable Shady LEMUS Attending Clinician Unavailable ANDRESSA COLON Attending Clinician Unavailable Paty GUADALUPE Admitting Clinician Unavailable GIUSEPPE Admitting Clinician Unavailable Shady LEMUS Admitting Clinician Unavailable ANDRESSA COLON Admitting Clinician Unavailable Problems Condition Condition Condition Status Onset Resolution Last Treating Co mments Source Name Details Category Date Date Treatment Clinician Date Screening Screening Disease Active Overview: Univers for for 03-15 Added ity of colorectal colorectal 00:00: automatic [place] cancer cancer 00 ally from Medical request Branch for surgery [id number] Elderly Elderly Disease Active Overview: Univ ers multigravi multigravi -15 ICD10 it y of da da 00:00: Diagnosis [place] delivered delivered 00 Term Medi cr [employer] Branch Utility Post term Post term Disease Active Overview: Univers , , 15 ICD10 it y of delivered delivered 00:00: Diagnosis [place] 00 Term Medical [employer] Branch Utility Tubal Tubal Disease Active Univers ligation ligation 01-20 ity of status status 00:00: [place] 00 Medical Branch First First Disease Active Overview: Univer s degree degree -13 ICD10 ity of perineal perineal 00:00: Diagnosis [place] as laceration laceration 00 Term Me dical during during [employer] Branch delivery delivery Utility Disease Active U nivers care and care and 01-20 ity of examinatio examinatio [place] 00 Medical immediatel immediatel Br anch y after y after delivery delivery Multiparit Multiparit Disease Resolve 2008-01-22 Univers y y d 01-20 00:00:00 ity of 00:00: [place] 00 Medical Branch Cord Cord Disease Resolve 2008-01-22 Univ ers around around d 01-20 00:00:00 ity of neck, with neck, with [...] diabetes diabetes 00:00: [place] mellitus mellitus [facility] Family Family Disease Resolve 2008-01-22 [...] Resolve 2008-01-21 2008-01-21 Univers ic ic d 11-17 00:00:00 14:28:21 ity of varicose varicose 00:00: [...] ic ic 00:00: [place] vaccinatio vaccinatio 00 Ct dical n and n and Branch inoculatio inoculatio n against n against influenza influenza History of History of Disease Resolve 2008-01-21 2015-04-11 Univers urinary urinary d - 00:00:00 22:46:27 ity of tract tract 00:00: [place] infection infection 00 [facility] cr Branch History of History of Disease Resolve 2008-01-21 2015-04-11 Univers cardiovasc cardiovasc d - 00:00:00 22:46:27 ity of ular ular 00:00: [place] disorder disorder 00 Medica l Branch Alcoholism Alcoholism Disease Resolve 2008-01-21 2008-01-21 Univers in family in family d 11-17 00:00:00 14:28:21 ity of 00:00: [place] 00 [facility] Branch Supervisio Supervisio Disease Resolve 2008-01-21 2008-01-21 Univers n of other n of other d 11-17 00:00:00 14:28:21 ity of normal normal 00:00: [place] 00 [facility] ER Disease Resolve 2008-01-21 2008-01-21 Univers with with d 11-17 00:00:00 14:28:21 ity of history of history of 00:00: [facility] Encounter Encounter Disease Resolve 2008-01-21 2015-04-11 Univers for for d 11-17 00:00:00 22:46:27 [place] of 00[place] screening screening [facility] of mother of mother Bran ch Allergies, Adverse Reactions, Alerts Allergy Allergy Status Severity Reaction(s) Onset Inactive Treating Comm ents Source Name Type Date Date Clinician PENICILL Drug Active Unknown-Cmnt Un brendan INS Class 8-29 ity of 00:00: [place] 00 [facility] Penicill Propensi Active Unknown - Uni vers ins ty to See comments 8-29 ity of adverse 00:00: [place] reaction Medical s Branch Social History Social Habit Start Date Stop Date Quantity Comments Source Exposure to Not sure [facility] SARS-CoV-2 [facility] (event) [place] Tobacco use and 2018-10-25 2018-10-25 Never used Universit y of exposure 00:00:00 00:00:00 [facility] Alcohol intake 2018-10-25 2018-10-25 Current drinker Unive rsity of 00:00:00 00:00:00 of alcohol [facility] (finding) [place] Alcohol Comment 2013-04-03 2013-04-03 wine 1 glass per Uni versity of 00:00:00 00:00:00 evening [facility] Sex Assigned At [birth year] Universit y of 00:00:00 00:00:00 [facility] Smoking Status Start Date Stop Date Source Never smoker [facility] xa Medical Branch Medications Ordered Filled Start Stop Current Ordering Indication Dosage Frequency Signature Comments Components Source Medication Medication Date Date Medication? Clinician (SIG) Name Name naproxen Yes Abrasion of 550mg Take 1 Univers sodium 5-06 left knee, tablet by it y of [...] one tab the morning of procedure miSOPROStol 2017-07 Yes 200ug Take 1 Uni vers 200 mcg 0-10 tablet by ity of tablet 00:00: mouth 00 SEE-INSTRU Medical CTIONS. Branch Take one tab the night before and one tab the morning of procedure diclofenac 2017- Yes 75mg Take 1 Unive rs 75 mg EC 9-06 tablet by ity of tablet 00:00: mouth 2 00 (two) Medical times Branch daily with meals. diclofenac 2017- Yes 75mg Take 1 Unive rs 75 mg EC 9-06 tablet by ity of tablet 00:00: mouth 2 00 (two) Medical times Branch daily with meals. peg-electro Yes Take as Uni vers lyte soln 9-04 directed ity of 236-22.74-6 00:00: [place] .74 -5.86 00 Medical gram Branch solution peg-electro 2017- Yes Take as Uni vers lyte soln 9-04 directed ity of 236-22.74-6 00:00: [place] .74 -5.86 00 Medical gram Branch solution acetaminoph 2017- Yes Abnormal CT 325mg Take 325 Univers en 8-29 scan, mg by ity of (TYLENOL) 16:12: bladder mouth [place] 325 mg 13 every 6 Medical tablet (six) Branch hours as needed. acetaminoph 2018- Yes Abnormal CT 325mg Take 325 Univers en 8-29 scan, mg by ity of (TYLENOL) 16:12: bladder mouth [place] 325 mg 13 every 6 Medical tablet (six) Branch hours as needed. phentermine 2017- Yes Abdominal 37.5mg Take 37.5 Univers 37.5 mg 8-29 pain, mg by ity of capsule 15:40: acute, left mouth [place] 58 lower every Medical quadrant morning. Branch phentermine Yes Abdominal 37.5mg Take 37.5 Univers 37.5 mg 8-29 pain, mg by ity of capsule 15:40: acute, left mouth [place] 58 lower every Medical quadrant morning. Branch medroxyPROG Yes 10mg Take 1 Univ ers [...] LOESTRIN FE Yes 1{tbl} Take 1 Un rbendan (LOESTRIN 8-29 tablet by ity o f FE 07/30) 1 00:00: mouth [place] mg-20 mcg 00 daily. Medical (21)/75 mg Branch (7) tablet tiZANidine Yes Univers 6 mg 8-09 ity of capsule 00:00: [place] 00 Medical Branch tiZANidine 0 Yes Univers 6 mg 8-09 ity of capsule 00:00: [place] 00 Medical Branch traMADOL 50 Yes 50mg Take [...] 2020-11-14 02:30:00 160 mm[Hg] Univer sity of [facility] Diastolic blood 2020-11-14 02:30:00 87 mm[Hg] [facility] Heart rate 2020-11-14 02:30:00 99 /min Universi ty [facility] Body temperature 2020-11-14 02:30:00 37.06 Renetta [facility] Respiratory rate 2020-11-14 02:30:00 18 /min [facility] Body height 2020-11-14 02:30:00 177.8 cm Universi ty [facility] Body weight 2020-11-14 02:30:00 86.183 kg Universi ty [facility] BMI 2020-11-14 02:30:00 27.26 kg/m2 Universi ty [facility] Oxygen saturation in 2020-11-14 02:30:00 98 /min [facility] Arterial blood by [facility] Pulse oximetry Branch Systolic blood 2020-11-14 02:30:00 160 mm[Hg] [facility] Diastolic blood 2020-11-14 02:30:00 87 mm[Hg] [facility] Heart rate 2020-11-14 02:30:00 99 /min Universi ty [facility] Body temperature 2020-11-14 02:30:00 37.06 Renetta [facility] Respiratory rate 2020-11-14 02:30:00 18 /min [facility] Body height 2020-11-14 02:30:00 177.8 cm Universi ty [facility] Body weight 2020-11-14 02:30:00 86.183 kg Universi ty [facility] BMI 2020-11-14 02:30:00 27.26 kg/m2 Universi ty [facility] Oxygen saturation in 2020-11-14 02:30:00 98 /min University of Arterial blood by [facility] Pulse oximetry Branch Procedures Procedure Date / Time Performed Performing Clinician Sourc e XR KNEE <3 VW LEFT 2020-11-14 02:50:39 Rajan Sommer [facility] Medical Branch Plan of Care Planned Activity Planned Date Details Comments Source Future Scheduled 2023 Screening for [facility] Test 00:00:00 malignant neoplasm Medical B ranch of colon (procedure) [code = 161909802] Future Scheduled 2023 Screening for [facility] Test 00:00:00 malignant neoplasm Medical B ranch of colon (procedure) [code = 842642402] Future Scheduled 2021-03-11 [facility] (Season Ended) [code Medical Branch = INFLUENZA VACCINE (Season Ended)] Future Scheduled 2021-03-11 [facility] (Season Ended) [code Medical Branch = INFLUENZA VACCINE (Season Ended)] Future Scheduled 2021-03-08 Screening for [facility] Test 00:00:00 malignant neoplasm Medical B ranch of cervix (procedure) [code = 605702622] Future Scheduled 2021-03-08 Screening for [facility] Test 00:00:00 malignant neoplasm Medical B ranch of cervix (procedure) [code = 277530571] Future Scheduled 2019-03-08 Screening for [facility] Test 00:00:00 malignant neoplasm Medical B ranch of breast (procedure) [code = 023032670] Future Scheduled 2019-03-08 Screening for [facility] Test 00:00:00 malignant neoplasm Medical B ranch of breast (procedure) [code = 758532725] Future Scheduled 1992-01-14 DTaP,Tdap,and Td [facility] Vaccines (1 - Tdap) Medical Branch [code = DTaP,Tdap,and Td Vaccines (1 - Tdap)] Future Scheduled 1992-01-14 DTaP,Tdap,and Td Univers ity [facility] Test 00:00:00 Vaccines (1 - [...] Scheduled 1985 Depression screening Uni versity of [place] Test 00:00:00 (procedure) [code = Medical Branch 748660949] Future Scheduled 1985 Depression screening Uni versity of [place] Test 00:00:00 (procedure) [code = Medical Branch 475480655] Future Scheduled XR KNEE <3 VW LEFT Unive rsity [facility] Test [code = 93772] Medical Bran h Encounters Start End Encounter Admission Attending Care Care Encounter Source Date/Time Date/Time Type Type Clinicians Facility Department ID 2021-05-10 Emergency [facility] [id number] Univers 17:39:57 ity [facility] 2021-05-10 Emergency [facility] [id number] [facility] P DOCTOR [facility] [id number] Univers 00:00:00 UNASSIGNED, 7 ity [facility] 2020-11-13 2020-11-13 Emergency [facility] [id number] 21:32:00 22:27:00 Rajan Lindquist [id number] [place] [id number] [place] [id number] 2020-11-13 2020-11-13 Emergency Iam [facility] [id number] 20:58:00 21:22:00 Cassidy Lindquist [id number] [place] [id number] [place] [id number] 2018-10-25 2018-10-25 Emergency Paresh CHIN [facility] ERT [id number] Univers 16:23:34 19:15:00 REN ity [facility] 2008-04-08 2008-04-08 Outpatient [facility] [id number] Univers 00:00:00 00:00:00 [id number] ity [facility] 2008-03-14 2008-03-14 Outpatient [facility] [id number] Univers 00:00:00 00:00:00 [id number] ity [facility] 2008-02-21 2008-02-21 Outpatient [facility] [id number] Univers 00:00:00 00:00:00 [id number] ity [facility] 2008-02-05 2008-02-05 Outpatient [facility] [id number] Univers 00:00:00 00:00:00 [id number] ity [facility] 2008-01-20 2008-01-23 Inpatient P ANA LEMUS [facility] [id number] Univers 18:38:00 17:09:00 ANA LEMUS 5 i ty [facility] 2008-01-05 2008-01-05 Outpatient [facility] [id number] Univers 00:00:00 00:00:00 [id number] ity [facility] 2007-12-29 2007-12-29 Outpatient [facility] [id number] Univers 00:00:00 10:35:40 2 ity [facility] 2007-12-22 2007-12-22 Outpatient [facility] [id number] Univers 00:00:00 00:00:00 [id number] ity [facility] 2007-11-24 2007-11-24 Outpatient [facility] [id number] Univers 00:00:00 00:00:00 [id number] ity [facility] 2007-11-14 2007-11-14 Outpatient P KEARA COLON [facility] [id number] Univers 09:47:00 23:59:00 9 ity [facility] 2007-10-06 2007-10-06 Outpatient [facility] [id number] Univers 00:00:00 00:00:00 [id number] ity [facility] 2007-08-28 2007-08-28 Outpatient [facility] [id number] Univers 00:00:00 00:00:00 [id number] ity [facility] 2007-08-21 2007-08-21 Outpatient [facility] [id number] Univers 00:00:00 16:24:31 4 ity [facility] 2007-08-21 2007-08-21 [facility]patient [facility] [id number] Univers 00:00:00 15:13:21 6 ity of [facility] 2007-08-09 2007-08-09 [facility]patient [facility] [id number] Univers 00:00:00 00:00:00 [id number] ity of [facility] 2007-07-12 2007-07-12 [facility]patient [facility] [id number] Univers 00:00:00 00:00:00 [id number] ity of [facility] 2007-06-30 2007-06-30 [facility]patient [facility] [id number] Univers 00:00:00 09:31:22 8 ity of [facility] 2007-06-12 2007-06-12 [facility]patient [facility] [id number] Univers 00:00:00 10:23:12 3 ity of [facility] 2006-11-17 2006-11-17 [facility]patient [facility] [id number] Univers 00:00:00 11:46:32 2 ity of [facility] 2006-11-10 2006-11-10 [facility]patient [facility] [id number] Univers 00:00:00 00:00:00 [id number] ity of [facility] 2006-11-01 2006-11-01 Outpatient [facility] [id number] Univers 00:00:00 00:00:00 [id number] ity of [facility] 2006-10-27 2006-10-27 [facility]patient [facility] [id number] Univers 00:00:00 00:00:00 [id number] ity of [facility] 2006-10-19 2006-10-19 Outpatient [facility] [id number] Univers 00:00:00 13:53:51 7 ity of [facility] 2006-10-10 2006-10-10 Outpatient [facility] [id number] Univers 00:00:00 14:07:32 8 ity of [facility] 2006-09-20 2006-09-20 [facility]patient [facility] [id number] Univers 00:00:00 00:00:00 [id number] ity of [facility] 2006-08-26 2006-08-26 Outpatient [facility] [id number] Univers 00:00:00 00:00:00 [id number] [facility] Results This patient has no known results.
[2021-07-13 19:45] LABS: Absolute Lymphocytes (CBC) 1.6 K/uL (0.7-4.9); Lymphocytes % 32.7 % (15.3-44.8); RBC Red Blood Cell Count 3.86 M/uL (3.86-4.86)
[2021-07-13 21:22] LABS: Albumin 3.6 g/dL (3.4-5.0); Bilirubin Direct 0.1 mg/dL (0-0.2); Bilirubin Total 0.5 mg/dL (0.2-1.0); Potassium 3.2 mmol/L (3.5-5.1); Protein, Total 7.4 g/dL (6.4-8.2)
[2021-07-13] MEDS ORDERED: ONDANSETRON 4 MG/2 ML VIAL ONE (22:08)
[2021-07-13] MEDS ORDERED: HYDROMORPHONE HCL 1 MG/ML INJ ONE (22:08)
--- NOTE | 2021-07-13 22:13 | RAD REPORT ---
EXAM DESCRIPTION: CTAbdomen Pelvis W Contrast - 07/13/2021 9:52 pm CLINICAL HISTORY: Abdominal pain. RLQ;Abd pain COMPARISON: Abdomen Pelvis W Contrast dated 02/12/2021 TECHNIQUE: Biphasic CT imaging of the abdomen and pelvis was performed with 100 ml non-ionic IV cont rast. All CT scans are performed using dose optimization technique as appropriate and may include automated exposure control or mA/KV adjustment according to patient size. FINDINGS: The lung bases are clear. Multiple hepatic hypodense lesions are present likely representing hemangiomata. No intrahepatic or e xtrahepatic biliary tree dilatation is seen. The spleen, pancreas, adrenal glands and kidneys show no acute process. No bowel obstruction, free air, free fluid or abscess. Moderate stool is present throughout the colon . Small fat containing umbilical hernia. The appendix is normal. No evidence of significant lymphade nopathy. No suspicious bony findings. The cervix has a somewhat bulky/ full appearance. IMPRESSION: No acute intra-abdominal or pelvic finding. The cervix has a somewhat bulky/full appearance. Recommend correlation with Pap smear. Multiple hypodense liver lesions are present, probably representing hemangiomas. Recommend MRI the [facility] protocol followup on a nonemergent basis for confirmation.
[2021-07-13 23:00] LABS: Urine Blood 2+ (Negative); Urine Glucose Negative (Negative); Urine Protein Negative (Negative); Urine Specific Gravity 1.015 (1.005-1.030); Urine pH 7.5 (5.0-7.0)
--- NOTE | 2021-07-13 23:36 | ER ---
Nurse's Notes [facility] Name: Yazmin Monzon Age: 46 yrs Sex: Female : 1975 Arrival Date: 07/13/2021 Time: 17:51 Bed Treatment Private MD: Diagnosis: Dysmenorrhea, unspecified Presentation: 07/13 19:11 Chief complaint: Patient states: vaginal bleeding since Tuesday, RLQ pain , hurts more iw when she exhales , has hx of low blood count and has had needed blood transfusions in past. Coronavirus screen: At this time, the client does not indicate any symptoms associated with coronavirus-19. Ebola Screen: Patient negative for fever greater than or equal to 101.5 degrees Fahrenheit, and additional compatible Ebola Virus Disease symptoms Patient denies exposure to infectious person. Patient denies travel to an Ebola-affected area in the 21 days before illness onset. No symptoms or risks identified at this time. Initial Sepsis Screen: Does the patient meet any 2 criteria? No. Patient's initial sepsis screen is negative. Does the patient have a suspected source of infection? No. Patient's initial sepsis screen is negative. Risk Assessment: Do you want to hurt yourself or someone else? Patient reports no desire to harm self or others. Onset of symptoms was July 11, 2020. 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 - Social history:: Smoking status: Patient denies any tobacco usage or history of. Screenin:46 Abuse screen: Denies threats or abuse. Nutritional screening: No deficits noted. al4 Tuberculosis screening: No symptoms or risk factors identified. Fall Risk No fall in past 12 months (0 pts). IV access (20 points). Ambulatory Aid- None/Bed Rest/Nurse Assist (0 pts). Gait- Normal/Bed Rest/Wheelchair (0 pts) Mental Status- Oriented to own ability (0 pts). Total Busby Fall Scale indicates No Risk (0-24 pts). Assessment: 21:45 General: Appears in no apparent distress. uncomfortable, Behavior is calm, cooperative, al4 appropriate for age. Neuro: Level of Consciousness is awake, alert, obeys commands, Oriented to person, place, time, situation. Cardiovascular: Capillary refill < 3 seconds Patient's skin is warm and dry. Respiratory: Airway is patent Respiratory effort is even, unlabored, Respiratory pattern is regular, symmetrical. GI: No signs and/or symptoms were reported involving the gastrointestinal system. : Reports vaginal bleeding that is heavy flow. EENT: No signs and/or symptoms were reported regarding the EENT system. Derm: No signs and/or symptoms reported regarding the dermatologic system. Musculoskeletal: No signs and/or symptoms reported regarding the musculoskeletal system. 21:45 Pain: Complains of pain in right lower quadrant. al4 22:46 Reassessment: patient ambulating to restroom. al4 23:43 Reassessment: No changes from previously documented assessment. Patient and/or family al4 updated on plan of care and expected duration. Pain level reassessed. Vital Signs: 19:11 BP 129 / 81; Pulse 80; Resp 16; Temp 99.0; Pulse Ox 100% on R/A; iw 19:11 Weight 86.18 kg; Height 5 ft. 10 in. (177.80 cm); iw 22:16 BP 126 / 75; Pulse 18; Resp 18; Pulse Ox 100% ; Pain 10/10; al4 22:45 BP 117 / 69; Pulse 64; Resp 18; Pulse Ox 100% ; al4 19:11 Body Mass Index 27.26 (86.18 kg, 177.80 cm) iw ED Course: 17:51 Patient arrived in ED. as 19:12 Triage completed. iw 19:13 Arm band placed on. iw 19:18 Miguel A Riley PA is PHCP. iw 19:19 Renny Griffin MD is Attending Physician. iw 21:35 Asif Sexton is Primary Nurse. al4 21:51 CT Abd/Pelvis - IV Contrast Only In Process Unspecified. EDMS 22:16 Inserted saline lock: 20 gauge in right antecubital area, using aseptic technique. al4 22:46 Patient has correct armband on for positive identification. Placed in gown. Bed in low al4 position. Call light in reach. Side rails up X2. 23:23 US Transvaginal Study (Probe) In Process Unspecified. EDMS 23:44 No provider procedures requiring assistance completed. IV discontinued, intact, al4 bleeding controlled, No redness/swelling at site. Pressure dressing applied. Administered Medications: 22:15 Drug: Dilaudid (HYDROmorphone) 1 mg Route: IVP; Site: right antecubital; al4 23:15 Follow up: Response: No adverse reaction; RASS: Alert and Calm (0) al4 22:16 Drug: Zofran (Ondansetron) 4 mg Route: IVP; Site: right antecubital; al4 23:15 Follow up: Response: No adverse reaction al4 22:45 Not Given (Patient Refused; physician notifiedd): morphine 4 mg IVP once; RASS on al4 ADMIN: Combtv4, Very Agttd3, Agttd2, Rstlss1, AlertClm0, Drwsy-1, Lt Sdtn-2, Mod Sdtn-3, Dp Sdtn-4, UnArsble-5 23:43 Drug: Potassium Chloride 40 mEq Route: PO; al4 23:49 Follow up: Response: No adverse reaction al4 Outcome: 23:35 Discharge ordered by MD. garcia 23:44 Discharged to home ambulatory, with ride al4 23:44 Condition: stable 23:44 Discharge instructions given to patient, Instructed on discharge instructions, follow up and referral plans. no drinking with medication, no driving heavy equipment, medication usage, Demonstrated understanding of instructions, follow-up care, medications, Prescriptions given X 1. 23:47 Patient left the ED. al4 Signatures: Dispatcher [employer] Geno Holley Irene, MARIBEL RN Miguel A Stapleton PA PA jr8 Ledbetter, Alexis al4
--- NOTE | 2021-07-13 23:36 | EDPHYS ---
Physician Documentation [facility] Name: Yazmin Monzon Age: 46 yrs Sex: Female : 1975 Arrival Date: 07/13/2021 Time: 17:51 Bed Treatment Private MD: ED Physician Renny Griffin HPI: 07/13 21:38 This 46 yrs old Female presents to ER via Wheelchair with complaints of Abdominal pain. jr8 21:38 The patient presents with abdominal pain right lower quadrant. Onset: The jr8 symptoms/episode began/occurred acutely, today. The symptoms do not radiate. Associated signs and symptoms: Pertinent positives: vaginal bleeding. The symptoms are described as shooting, stabbing. Modifying factors: The symptoms are alleviated by nothing, the symptoms are aggravated by movement, pressure. Severity of pain: At its worst the pain was moderate in the emergency department the pain is unchanged. The patient has not experienced similar symptoms in the past. The patient has not recently seen a physician. Patient stated that she has erratic menstrual cycles as she is going through menopause. Stated that she is on her which she believes to be cycle at this time. Denies it being any heavier than normal. Patient stated that she had sudden onset severe right lower quadrant pain that started today has not been resolved. Stated that that is not normal for her. Denies fevers, diarrhea, vomiting.. 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 - Social history:: Smoking status: Patient denies any tobacco usage or history of. ROS: 21:38 Eyes: Negative for injury, pain, redness, and discharge, ENT: Negative for injury, jr8 pain, and discharge, Neck: Negative for injury, pain, and swelling, Cardiovascular: Negative for chest pain, palpitations, and edema, Respiratory: Negative for shortness of breath, cough, wheezing, and pleuritic chest pain, Back: Negative for injury and pain, MS/Extremity: Negative for injury and deformity, Skin: Negative for injury, rash, and discoloration, Neuro: Negative for headache, weakness, numbness, tingling, and seizure. 21:38 Abdomen/GI: Positive for abdominal pain, Negative for nausea, vomiting, and diarrhea. 21:38 : Positive for vaginal bleeding. Exam: 21:38 Cardiovascular: Regular rate and rhythm with a normal S1 and S2. No gallops, murmurs, jr8 or rubs. Normal PMI, no JVD. No pulse deficits. Respiratory: Lungs have equal breath sounds bilaterally, clear to auscultation and percussion. No rales, rhonchi or wheezes noted. No increased work of breathing, no retractions or nasal flaring. Back: No spinal tenderness. No costovertebral tenderness. Full range of motion. Skin: Warm, dry with normal turgor. Normal color with no rashes, no lesions, and no evidence of cellulitis. MS/ Extremity: Pulses equal, no cyanosis. Neurovascular intact. Full, normal range of motion. Neuro: Awake and alert, GCS 15, oriented to person, place, time, and situation. Cranial nerves II-XII grossly intact. Motor strength 5/5 in all extremities. Sensory grossly intact. 21:38 Constitutional: The patient appears alert, awake, in obvious pain. 21:38 Abdomen/GI: Inspection: abdomen appears normal, Bowel sounds: active, all quadrants, Palpation: soft, in all quadrants, moderate abdominal tenderness, in the right lower quadrant, mass, is not appreciated, rebound tenderness, is not appreciated, voluntary guarding, is elicited in the right lower quadrant, involuntary guarding, is elicited in the right lower quadrant, no appreciated organomegaly, Indicators: McBurney's point is tender, Restrepo's sign is negative, Rovsing's sign is positive, Liver: tenderness, is not appreciated. Vital Signs: 19:11 BP 129 / 81; Pulse 80; Resp 16; Temp 99.0; Pulse Ox 100% on R/A; iw 19:11 Weight 86.18 kg; Height 5 ft. 10 in. (177.80 cm); iw 22:16 BP 126 / 75; Pulse 18; Resp 18; Pulse Ox 100% ; Pain 10/10; al4 22:45 BP 117 / 69; Pulse 64; Resp 18; Pulse Ox 100% ; al4 19:11 Body Mass Index 27.26 (86.18 kg, 177.80 cm) iw MDM: 19:20 Patient medically screened. jr8 23:33 Data reviewed: vital signs, nurses notes, lab test result(s), radiologic studies, CT jr8 scan, ultrasound. Data interpreted: Pulse oximetry: on room air is 100 %. Interpretation: normal. Counseling: I had a detailed discussion with the patient and/or guardian regarding: the historical points, exam findings, and any diagnostic results supporting the discharge/admit diagnosis, lab results, radiology results, the need for outpatient follow up, an OB/Gyne specialist, to return to the emergency department if symptoms worsen or persist or if there are any questions or concerns that arise at home. Response to treatment: the patient's symptoms have markedly improved after treatment. ED course: Discussed with patient no acute findings on CT or ultrasound. Based on her menstrual cycle and history of endometriosis without any other acute surgical emergent finding in the right adnexal, gynecological or abdominal region. I believe that it is dysmenorrhea versus endometriosis. 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 Knows to come back if she is worsens at any point time.. 07/13 19:15 Order name: Basic Metabolic Panel; Complete Time: 21:23 iw 07/13 19:15 Order name: CBC with Diff; Complete Time: 20:03 iw 07/13 19:15 Order name: Hepatic Function; Complete Time: 21:23 iw 07/13 19:15 Order name: Lipase; Complete Time: 21:23 iw 07/13 23:00 Order name: Urine Dipstick-Ancillary; Complete Time: 23:11 EDMS 07/13 23:04 Order name: Urine --Ancillary (enter results); Complete Time: 01:05 mw2 07/13 19:15 Order name: IV Saline Lock; Complete Time: 21:44 iw 07/13 19:15 Order name: Labs collected and sent; Complete Time: 21:45 iw 07/13 19:17 Order name: CT Abd/Pelvis - IV Contrast Only; Complete Time: 22:19 iw 07/13 22:19 Order name: US Transvaginal Study (Probe) jr8 07/13 19:17 Order name: Urine Dipstick-Ancillary (obtain specimen); Complete Time: 23:04 iw 07/13 19:17 Order name: Urine Test (obtain specimen); Complete Time: 23:04 iw Administered Medications: 22:15 Drug: Dilaudid (HYDROmorphone) 1 mg Route: IVP; Site: right antecubital; al4 23:15 Follow up: Response: No adverse reaction; RASS: Alert and Calm (0) al4 22:16 Drug: Zofran (Ondansetron) 4 mg Route: IVP; Site: right antecubital; al4 23:15 Follow up: Response: No adverse reaction al4 22:45 Not Given (Patient Refused; physician notifiedd): morphine 4 mg IVP once; RASS on al4 ADMIN: Combtv4, Very Agttd3, Agttd2, Rstlss1, AlertClm0, Drwsy-1, Lt Sdtn-2, Mod Sdtn-3, Dp Sdtn-4, UnArsble-5 23:43 Drug: Potassium Chloride 40 mEq Route: PO; al4 23:49 Follow up: Response: No adverse reaction al4 Disposition: 07/14 04:05 Co-signature as Attending Physician, Renny Griffin MD. pkl Disposition Summary: 07/13/21 23:35 Discharge Ordered Location: Home jr8 Problem: new jr8 Symptoms: have improved jr8 Condition: Stable jr8 Diagnosis - Dysmenorrhea, unspecified jr8 Followup: jr8 - With: Private Physician - When: 2 - 3 days - Reason: Recheck today's complaints, Continuance of care, Re-evaluation by your physician Discharge Instructions: - Discharge Summary Sheet jr8 - Dysmenorrhea jr8 - Endometriosis jr8 Forms: - Medication Reconciliation Form jr8 - Thank You Letter jr8 - Antibiotic Education jr8 - Prescription Opioid Use jr8 Prescriptions: - Tylenol-Codeine #3 300 mg-30 mg Oral - take 2 tablet by ORAL route every 8 hours As needed; 16 tablet; Refills: 0, jr8 Product Selection Permitted Signatures: Dispatcher [employer] Renny Caballero MD MD pkl Meg Devine RN RN iw Miguel A Riley PA PA jr8 Asif Sexton al4
[2021-07-13] MEDS ORDERED: POTASSIUM CL SA 10 MEQ TAB PO ONE (23:39)
[2021-07-13 23:43] LABS: Urine Specific Gravity/Preg 1.015 (1.005-1.030)
[2021-07-14 00:22] VITALS: TEMP 99; O2SAT 100
[2021-07-14 00:33] VITALS: BP 117/69
--- NOTE | 2021-07-14 08:46 | RAD REPORT ---
EXAM DESCRIPTION: US - Transvaginal Study Probe - 07/13/2021 11:23 pm CLINICAL HISTORY: Right abdominal pain COMPARISON: CT abdomen July 13, 2021 FINDINGS: The uterus measures 9 x 6 x 7 centimeters. The endometrial stripe measures 1 centimeter. A fibroid is not seen. Right ovary is normal in size and echotexture containing blood flow. Left ovary not seen secondary to overlying bowel gas. The right and left at adnexa are unremarkable. No significant free fluid is seen. IMPRESSION: No abnormality is displayed
== END 2021-07-13 23:47 | disposition home or self-care (01) ==
LOC: ER 17:49
DX: N94.6 Dysmenorrhea, unspecified (principal); Z88.0 Allergy status to penicillin
CPT/HCPCS: 36415; 74177; 76830; 80048; 80076; 81003; 81025; 83690; 85025; 96374; 96375; 99284; J1170; J2405; Q9967

== ENCOUNTER 2022-07-13 06:48 | Emergency (ER) | payer SELFPAY ==
--- OUTSIDE RECORDS SUMMARY | 2022-07-13 06:52 | XMS REPORT | Continuity of Care Document ---
:1975 Author Organization [facility] t Address [address] [place] [address] Care Team Providers Name Role Phone Lexie Griffin MD Primary Care Physician DOCTOR UNASSIGNED, NO NAME Attending Clinician Unavailable Rajan Sommer DO Attending Clinician Cassidy Vitale MD Attending Clinician REN CHIN Attending Clinician Unavailable ANA LEMUS Attending Clinician Unavailable ANA LEMUS Attending Clinician Unavailable KEARA COLON Attending Clinician Unavailable LEEANN GUADALUPE Admitting Clinician Unavailable REN CHIN Admitting Clinician Unavailable ANA LEMUS Admitting Clinician Unavailable KEARA COLON Admitting Clinician Unavailable Problems Condition Condition Condition Status Onset Resolution Last Treating Co mments Source Name Details Category Date Date Treatment Clinician Date Screening Screening Disease Active Overview: Univers for for 03-15 Added ity of colorectal colorectal 00:00: automatic [place] cancer cancer 00 ally from Medical request Branch for surgery [id number] Elderly Elderly Disease Active Overview: Univ ers multigravi multigravi 7-15 ICD10 it y of da da 00:00: Diagnosis [place] delivered delivered 00 Term Medi cr [employer] Branch Utility Post term Post term Disease Active Overview: Univers , , 7-15 ICD10 it y of delivered delivered 00:00: Diagnosis [place] 00 Term Medical [employer] Branch Utility Tubal Tubal Disease Active Univers ligation ligation -13 ity of status status 00:00: [place] 00 Medical Branch First First Disease Active Overview: Univer s degree degree 7-13 ICD10 ity of perineal perineal 00:00: Diagnosis [place] as laceration laceration 00 Term Me dical during during [employer] Branch delivery delivery Utility Disease Active U [...] [place] antepartum antepartum 00 Me dical Branch Asymptomat Asymptomat Disease Resolve 2008-01-21 2008-01-21 Univers [...] tract tract 00:00: [place] infection infection 00 [facility] Branch History of History of Disease Resolve 2008-01-21 2015-04-11 Univers cardiovasc cardiovasc d 11-17 00:00:00 22:46:27 ity of ular ular 00:00: [place] disorder disorder 00 Medica l Branch Alcoholism Alcoholism Disease Resolve 2008-01-21 2008-01-21 Univers in family in family d 5-10 00:00:00 14:28:21 ity of 00:00: [place] 00 Medical Branch Supervisio Supervisio Disease Resolve 2008-01-21 2008-01-21 Univers n of other n of other d 5-10 00:00:00 14:28:21 ity of normal normal 00:00: [place] 00 [facility] Disease Resolve 2008-01-21 2008-01-21 Univers with with d 5-10 00:00:00 14:28:21 [place]y of history of [place] of [place] 00 [place] Branch Encounter Encounter Disease Resolve 2008-01-21 2015-04-11 Univers for for d 5-10 00:00:00 22:46:27 [place] of 00[place] screening screening 00 [facility] of mother of mother Bran ch Urinary Urinary Disease Resolve 2008-01-21 2008-01-21 Univers tract tract d 5-10 00:00:00 14:28:21 [place]y of infection, infection, [place] site not site not 00 Medica l specified specified Bran ch Allergies, Adverse Reactions, Alerts Allergy Allergy Status Severity Reaction(s) Onset Inactive Treating Comm ents Source Name Type Date Date Clinician PENICILL Drug Active Unknown-Cmnt Un brendan INS Class 8-29 ity of 00:00: [place] 00 Medical [place] Penicill Propensi Active Unknown - Uni vers ins ty to See comments 8-29 ity of adverse 00:00: [place] reaction 00 Medical s Branch Social History Social Habit Start Date Stop Date Quantity Comments Source Exposure to Not sure [facility] SARS-CoV-2 [facility] (event) Branch Tobacco use and 2018-10-25 2018-10-25 Never used Universit y of exposure 00:00:00 00:00:00 [facility] Alcohol intake 2018-10-25 2018-10-25 Current drinker Unive rsity of 00:00:00 00:00:00 of alcohol [place] [facility] (finding) Branch Alcohol Comment 2013-04-03 2013-04-03 wine 1 glass per Uni versity of 00:00:00 00:00:00 evening [facility] Sex Ass[birth year] Universit y of 00:00:00 00:00:00 [place] [facility] Smoking Status Start Date Stop Date Source Never smoker [facility] Medical Branch Medications Ordered Filled Start Stop Current Ordering Indication Dosage Frequency Signature Comments Components Source Medication Medication Date Date Medication? Clinician (SIG) Name Name naproxen Yes Abrasion of 550mg Take 1 Univers sodium 506 left knee, tablet by it y of (ANAPROX 00:00: initial mouth 2 [place] as DS) 550 mg 00 encounter (two) Med ical tablet times Branch daily with meals. miSOPROStol 2017-07 Yes 200ug Take 1 Uni vers 200 mcg 0-10 tablet by ity of tablet 00:00: mouth SEE-INSTRU Medical CTIONS. Branch Take one tab the night before and one tab the morning of procedure miSOPROStol 2017-07 Yes 200ug Take 1 Uni vers 200 mcg 0-10 tablet by ity of tablet 00:00: mouth [place] SEE-INSTRU Medical CTIONS. Branch Take one tab the night before and one tab the morning of procedure diclofenac Yes 75mg Take 1 Unive rs 75 mg EC 9-06 tablet by ity of tablet 00:00: mouth 2 [place] (two) Medical times Branch daily with meals. diclofenac Yes 75mg Take 1 Unive rs 75 mg EC 9-06 tablet by ity of tablet 00:00: mouth 2 [place] (two) Medical times Branch daily with meals. peg-electro Yes Take as Uni vers lyte soln 9-04 directed ity of 236-22.74-6 00:00: [place] .74 -5.86 00 Medical gram Branch solution peg-electro Yes Take as Uni vers lyte soln 9-04 directed ity of 236-22.74-6 00:00: [place] .74 -5.86 00 Medical gram Branch solution acetaminoph Yes Abnormal CT 325mg Take 325 Univers en 8-29 scan, mg by ity of (TYLENOL) 16:12: bladder mouth [place] 325 mg 13 every 6 Medical tablet (six) Branch hours as needed. acetaminoph Yes Abnormal CT 325mg Take 325 Univers en 8-29 scan, mg by ity of (TYLENOL) 16:12: bladder [place] 325 mg 13 every 6 Medical tablet (six) Branch hours as needed. phentermine Yes Abdominal 37.5mg Take 37.5 Univers [...] capsule 00:00: [place] 00 Medical Branch tiZANidine Yes Univers 6 mg 8-09 ity [...] Branch needed for Pain (scale 4-6). HYDROcodone 2013-[address] 1{tbl} Take 1 Tab Univers -acetaminop 9-24 scan, by mouth ity of hen (NORCO) 00:00: bladder every 6 [place] 10-325 mg 00 (six) Medical tablet hours as Branch needed for Pain (scale 4-6). Vital Signs Vital Name Observation Time Observation Value Comments Source Systolic blood 2020-11-14 02:30:00 160 mm[Hg] Univer sity of [facility] Diastolic blood 2020-11-14 02:30:00 87 [facility]Hg[facility] 2020-11-14 02:30:00 99 /min Universi ty [facility] Body temperature 2020-11-14 02:30:00 37.06 Renetta [facility] Respiratory rate 2020-11-14 02:30:00 18 /min [facility] Body height 2020-11-14 02:30:00 177.8 cm Universi ty [facility] Body weight 2020-11-14 02:30:00 86.183 kg Universi ty [facility] BMI 2020-11-14 02:30:00 27.26 kg/m2 Universi ty [facility] Oxygen saturation in 2020-11-14 02:30:00 98 /min [facility] Arterial blood by [facility] Pulse oximetry Branch Systolic blood 2020-11-14 02:30:00 160 mm[facility]Hg] [facility] [place] [facility] 2020-11-14 02:30:00 87 mm[facility]Hg] [facility] 2020-11-14 02:30:00 99 /min Universi ty [facility] Body temperature 2020-11-14 02:30:00 37.06 Renetta [facility] Respiratory rate 2020-11-14 02:30:00 18 /min [facility] Body height 2020-11-14 02:30:00 177.8 cm Universi ty [facility] Body weight 2020-11-14 02:30:00 86.183 kg Universi ty [facility] BMI 2020-11-14 02:30:00 27.26 kg/m2 [facility] Medical Branch Oxygen saturation in 2020-11-14 02:30:00 98 /min [facility] Arterial blood by [facility] Pulse oximetry Branch Procedures Procedure Date / Time Performed Performing Clinician Sourdiego e XR KNEE <3 VW LEFT 2020-11-14 02:50:39 Rajan Sommer [facility] Medical [place] Plan of Care Planned Activity Planned Date Details Comments Source Future Scheduled 2023 Screening for University [place] [facility] Test 00:00:00 malignant neoplasm Medical B ranch of colon (procedure) [code = 797105054] Future Scheduled 2023 Screening for University [place] [facility] Test 00:00:00 malignant neoplasm Medical B ranch of colon (procedure) [code = 854841596] Future Scheduled 2021-03-11 [facility] (Season Ended) [code Medical Branch = INFLUENZA VACCINE (Season Ended)] Future Scheduled 2021-03-11 INFLUENZA VACCINE Univ sity [place] [facility] Test 00:00:00 (Season Ended) [code Medical Branch = INFLUENZA VACCINE (Season Ended)] Future Scheduled 2021-03-08 Screening for University [place] [facility] Test 00:00:00 malignant neoplasm Medical B ranch of cervix (procedure) [code = [id number]] Future Scheduled 2021-03-08 Screening for University [place] [facility] Test 00:00:00 malignant neoplasm Medical B ranch of cervix (procedure) [code = 334372422] Future Scheduled 2019-03-08 Screening for University [place] [facility] Test 00:00:00 malignant neoplasm Medical B ranch of breast (procedure) [code = 964112577] Future Scheduled 2019-03-08 Screening for University [place] [facility] Test 00:00:00 malignant neoplasm Medical B ranch of breast (procedure) [code = 322619387] Future Scheduled 1992-01-14 DTaP,Tdap,and Td Univers ity [place] [facility] Test 00:00:00 Vaccines (1 - Tdap) Medical Branch [code = DTaP,Tdap,and Td Vaccines (1 - Tdap)] Future Scheduled 1992-01-14 DTaP,Tdap,and Td Univers ity [place] [facility] Test 00:00:00 Vaccines (1 - Tdap) Medical Branch [code = DTaP,Tdap,and Td Vaccines (1 - Tdap)] Future Scheduled 1989 SARS-CoV-2 [facility] Test 00:00:00 (COVID-19) Vaccine Medical B ranch (1) [code = SARS-CoV-2 (COVID-19) Vaccine (1)] Future Scheduled 1989 SARS-CoV-2 [facility] Test 00:00:00 (COVID-19) Vaccine Medical B ranch (1) [code = SARS-CoV-2 (COVID-19) Vaccine (1)] Future Scheduled 1985 Depression screening Uni versity of [place] Test 00:00:00 (procedure) [code = Medical Branch [id number]] Future Scheduled 1985 Depression screening Uni versity of [place] Test 00:00:00 (procedure) [code = Medical Branch [id number]] Future Scheduled XR KNEE <3 VW LEFT Unive rsity of [place] Test [code = 64346] Medical Branc h Encounters Start End Encounter Admission Attending Care Care Encounter Source Date/Time Date/Time Type Type Clinicians Facility Department ID 2021-05-10 Emergency [facility] [id number] Univers 17:39:57 ity [facility] 2021-05-10 Emergency [facility] [id number] Univers 17:39:53 [place] [facility] 2008-02-12 Inpatient P DOCTOR [facility] [id number] Univers 00:00:00 UNASSIGNED, 7 ity of [facility] 2020-11-13 2020-11-13 Emergency , [facility] [id number] 21:32:00 22:27:00 Rajan Lindquist [id number] [place] [id number] [place] [id number] 2020-11-13 2020-11-13 Emergency Iam, [facility] [id number] 20:58:00 21:22:00 Cassidy Lindquist [id number] [place] [id number] [place] [id number] 2018-10-25 2018-10-25 Emergency Paresh CHIN, [facility] ERT [id number] Univers 16:23:34 19:15:00 REN ity [facility] 2008-01-20 2008-01-23 Inpatient P ALLAN ANA [facility] [id number] Univers 18:38:00 17:09:00 ANA LEMUS 5 i ty of [facility] 2007-12-29 2007-12-29 Outpatient [facility] [id number] Univers 00:00:00 10:35:40 2 ity of [facility] 2007-11-14 2007-11-14 Outpatient P KEARA COLON [facility] [id number] Univers 09:47:00 23:59:00 9 ity of [facility] 2007-08-21 2007-08-21 Outpatient [facility] [id number] Univers 00:00:00 16:24:31 4 ity of [facility] 2007-08-21 2007-08-21 Outpatient [facility] [id number] Univers 00:00:00 15:13:21 6 ity [facility] 2007-06-30 2007-06-30 Outpatient [facility] [id number] Univers 00:00:00 09:31:22 8 ity [facility] 2007-06-12 2007-06-12 Outpatient [facility] [id number] Univers 00:00:00 10:23:12 3 ity of [facility] 2006-11-17 2006-11-17 Outpatient [facility] [id number] Univers 00:00:00 11:46:32 2 ity of [facility] 2006-10-19 2006-10-19 Outpatient [facility] [id number] Univers 00:00:00 13:53:51 7 ity [facility] 2006-10-10 2006-10-10 Outpatient [facility] [id number] Univers 00:00:00 14:07:32 8 ity [facility] Results This patient has no known results.
[2022-07-13 10:28] LABS: Absolute Lymphocytes (CBC) 1.7 K/uL (0.7-4.9); Hematocrit 35.9 % (36.0-45.0); Lymphocytes % 30.8 % (15.3-44.8); MCV 88.2 fL (80-100); MPV 8.4 fL (7.6-11.3); RBC Red Blood Cell Count 4.07 M/uL (3.86-4.86)
[2022-07-13 10:49] LABS: Albumin 3.8 g/dL (3.4-5.0); Bilirubin Total 0.4 mg/dL (0.2-1.0); Magnesium 2.1 mg/dL (1.6-2.4); Potassium 3.4 mmol/L (3.5-5.1); Protein, Total 7.4 g/dL (6.4-8.2); Troponin High Sensitivity 4.9 pg/mL (<58.9)
[2022-07-13] MEDS ORDERED: NA CHLORIDE 0.9% 1,000 ML ONE (12:40)
--- NOTE | 2022-07-13 12:49 | EDPHYS ---
Physician Documentation [facility] Name: Yazmin Monzon Age: 47 yrs Sex: Female : 1975 Arrival Date: 07/13/2022 Time: 06:52 Bed 26 Private MD: ED Physician Gale Ayala HPI: 07/13 07:19 This 47 yrs old Female presents to ER via Unassigned with complaints of Weakness. rt 07:19 Onset: The symptoms/episode began/occurred 2 week(s) ago. Associated signs and rt symptoms: The patient has no apparent associated signs or symptoms. Severity of symptoms: At their worst the symptoms were moderate. Patient with history of menorrhagia presents to the ED with vaginal bleeding for about 2 weeks now. She states that this occurred before, she required multiple units of blood. Patient states that she feels similarly. The patient denies any pain, other acute complaints at this time. Symptoms are moderate severity, no other aggravating or alleviating factors.. 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 - Social history:: Smoking status: Patient denies any tobacco usage or history of. - Family history:: not pertinent, pertinent for. ROS: 07:19 Eyes: Negative for injury, pain, redness, and discharge, ENT: Negative for injury, rt pain, and discharge, Neck: Negative for injury, pain, and swelling, Cardiovascular: Negative for chest pain, palpitations, and edema, Respiratory: Negative for shortness of breath, cough, wheezing, and pleuritic chest pain, Abdomen/GI: Negative for abdominal pain, nausea, vomiting, diarrhea, and constipation, Back: Negative for injury and pain, MS/Extremity: Negative for injury and deformity, Skin: Negative for injury, rash, and discoloration, Psych: Negative for depression, anxiety, suicide ideation, homicidal ideation, and hallucinations. 07:19 Constitutional: Positive for weakness, Negative for fever. 07:19 : Positive for vaginal bleeding, Negative for burning with urination. 07:19 Neuro: Positive for weakness, Negative for altered mental status. Exam: 07:19 Constitutional: This is a well developed, well nourished patient who is awake, alert, rt and in no acute distress. Head/Face: Normocephalic, atraumatic. Eyes: Pupils equal round and reactive to light, extra-ocular motions intact. Lids and lashes normal. Conjunctiva and sclera are non-icteric and not injected. Cornea within normal limits. Periorbital areas with no swelling, redness, or edema. ENT: Nares patent. No nasal discharge, no septal abnormalities noted. Tympanic membranes are normal and external auditory canals are clear. Oropharynx with no redness, swelling, or masses, exudates, or evidence of obstruction, uvula midline. Mucous membranes moist. Neck: Trachea midline, no thyromegaly or masses palpated, and no cervical lymphadenopathy. Supple, full range of motion without nuchal rigidity, or vertebral point tenderness. No Meningismus. Chest/axilla: Normal chest wall appearance and motion. Nontender with no deformity. No lesions are appreciated. Cardiovascular: Regular rate and rhythm with a normal S1 and S2. No gallops, murmurs, or rubs. Normal PMI, no JVD. No pulse deficits. Respiratory: Lungs have equal breath sounds bilaterally, clear to auscultation and percussion. No rales, rhonchi or wheezes noted. No increased work of breathing, no retractions or nasal flaring. Abdomen/GI: Soft, non-tender, with normal bowel sounds. No distension or tympany. No guarding or rebound. No evidence of tenderness throughout. Skin: Warm, dry with normal turgor. Normal color with no rashes, no lesions, and no evidence of cellulitis. MS/ Extremity: Pulses equal, no cyanosis. Neurovascular intact. Full, normal range of motion. Neuro: Awake and alert, GCS 15, oriented to person, place, time, and situation. Cranial nerves II-XII grossly intact. Motor strength 5/5 in all extremities. Sensory grossly intact. Cerebellar exam normal. Normal gait. Psych: Awake, alert, with orientation to person, place and time. Behavior, mood, and affect are within normal limits. 12:52 ECG was reviewed by the Attending Physician. rt Vital Signs: 07:19 BP 137 / 83; Pulse 88; Resp 17 S; Temp 98.4(TE); Pulse Ox 100% on R/A; Weight 81.65 kg; jl7 Height 5 ft. 10 in. (177.80 cm); Pain 0/10; 12:19 BP 134 / 75; Pulse 93; Resp 18; Pulse Ox 96% on R/A; db 12:30 BP 126 / 76; Pulse 83; Resp 16; Pulse Ox 100% on R/A; db 07:19 Body Mass Index 25.83 (81.65 kg, 177.80 cm) jl7 Elliot Coma Score: 12:19 Eye Response: spontaneous(4). Verbal Response: oriented(5). Motor Response: obeys db commands(6). Total: 15. MDM: 07:23 Patient medically screened. rt 13:01 Data reviewed: vital signs, nurses notes, lab test result(s), EKG. ED course: Patient rt presents to the ED with a generalized weakness, stating that she believes that she has had menorrhagia to anemia. The patient has benign abdominal examination, imaging is not indicated. The patient has a stable H\T\H, stable vital signs. EKG shows no acute abnormalities. Patient was hydrated. She is very well-appearing in the ED, is in no acute distress. Will prescribe Lysteda for bleeding. Patient does not require admission at this time, is stable for outpatient management. 07/13 07:18 Order name: CBC with Diff; Complete Time: 11:15 rt 07/13 07:18 Order name: CMP; Complete Time: 11:15 rt 07/13 07:18 Order name: Magnesium; Complete Time: 11:15 rt 07/13 07:18 Order name: Test, Serum; Complete Time: 11:15 rt 07/13 07:18 Order name: Troponin HS; Complete Time: 11:15 rt 07/13 07:18 Order name: EKG; Complete Time: 07:19 rt 07/13 07:18 Order name: EKG - Nurse/Tech; Complete Time: 12:29 rt 07/13 10:27 Order name: Labs - recollect needed: recollect type and screen; Complete Time: 12:41 bd EC:52 Rate is 79 beats/min. Rhythm is regular, Normal Sinus Rhythm with No ectopy. QRS [place] rt is Normal. NV interval is normal. QRS interval is normal. QT interval is normal. No Q waves. T waves are Normal. No ST changes noted. Interpreted by me. Administered Medications: 12:40 Drug: NS 0.9% 1000 ml Route: IV; Rate: 1 bolus; Site: right antecubital; db 13:37 Follow up: Response: No adverse reaction; IV Status: Completed infusion; IV Intake: db 1000ml Disposition Summary: 07/13/22 12:48 Discharge Ordered Location: Home rt Problem: new rt Symptoms: have improved rt Condition: Stable rt Diagnosis - Menorrhagia rt Followup: rt - With: Private Physician - When: 2 - 3 days - Reason: Discharge Instructions: - Discharge Summary Sheet rt - Menorrhagia rt Forms: - Medication Reconciliation Form rt - Thank You Letter rt - Antibiotic Education rt - Prescription Opioid Use rt Prescriptions: - TRANEXAMIC ACID 650 mg tab - take 2 tablet by ORAL route 3 times per day; 30 tablet; Refills: 0, Product rt Selection Permitted Signatures: Dispatcher [employer] EDMS Shawna Anton Jahala, RN RN jl7 Yazmin Toro RN RN db Gael Ayala MD MD rt
--- NOTE | 2022-07-13 12:49 | ER ---
Nurse's Notes [facility] Name: Yazmin Monzon Age: 47 yrs Sex: Female : 1975 Arrival Date: 07/13/2022 Time: 06:52 Bed 26 Private MD: Diagnosis: Menorrhagia Presentation: 07/13 07:19 Chief complaint: Patient states: Vaginal bleeding x5-6 weeks, feeling weak and jl7 fatigued. Coronavirus screen: At this time, the client does not indicate any symptoms associated with coronavirus-19. Ebola Screen: No symptoms or risks identified at this time. Initial Sepsis Screen: Does the patient meet any 2 criteria? No. Patient's initial sepsis screen is negative. Does the patient have a suspected source of infection? No. Patient's initial sepsis screen is negative. Risk Assessment: Do you want to hurt yourself or someone else? Patient reports no desire to harm self or others. Onset of symptoms is unknown. 07:19 Method Of Arrival: Ambulatory jl7 07:19 Acuity: GEORGETTE 3 jl7 Triage Assessment: 07:20 General: Appears in no apparent distress. uncomfortable, Behavior is calm, cooperative, jl7 appropriate for age. Pain: Denies pain. Neuro: Level of Consciousness is awake, alert, obeys commands, Oriented to person, place, time, situation. Cardiovascular: Patient's skin is warm and dry. Respiratory: Airway is patent Respiratory effort is even, unlabored, Respiratory pattern is regular, symmetrical. Derm: Skin is pink, warm \T\ dry. 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 - Social history:: Smoking status: Patient denies any tobacco usage or history of. - Family history:: not pertinent, pertinent for. Screenin:19 [facility] ED Fall Risk Assessment (Adult) History of falling in the last 3 months, db including since admission No falls in past 3 months (0 pts) Confusion or Disorientation No (0 pts) Intoxicated or Sedated No (0 pts) Impaired Gait No (0 pts) Mobility Assist Device Used No (0 pt) Altered Elimination No (0 pt) Score/Fall Risk Level 0 - 2 = Low Risk Oriented to surroundings, Maintained a safe environment. Abuse screen: Denies threats or abuse. Denies injuries from another. Nutritional screening: No deficits noted. Tuberculosis screening: No symptoms or risk factors identified. Assessment: 07:22 Reassessment: Dr. Ayala in triage assessing pt. Pt informed of wait time, jl7 verbalized understanding. 12:19 Reassessment: Patient appears in no apparent distress at this time. Patient and/or db family updated on plan of care and expected duration. Pain level reassessed. Patient is alert, oriented x 3, equal unlabored respirations, skin warm/dry/pink. patient states has weakness states is on her period and concerned has had too much blood loss Patient denies pain at this time. General: Appears in no apparent distress. comfortable, Behavior is calm, cooperative, appropriate for age. Pain: Denies pain. Neuro: No deficits noted. Level of Consciousness is awake, alert, obeys commands, Oriented to person, place, time, situation. Cardiovascular: No deficits noted. Respiratory: No deficits noted. GI: No deficits noted. No signs and/or symptoms were reported involving the gastrointestinal system. : No deficits noted. No signs and/or symptoms were reported regarding the genitourinary system. EENT: No deficits noted. No signs and/or symptoms were reported regarding the EENT system. 13:00 Reassessment: Patient appears in no apparent distress at this time. Patient and/or db family updated on plan of care and expected duration. Pain level reassessed. Patient is alert, oriented x 3, equal unlabored respirations, skin warm/dry/pink. Patient states feeling better. Patient states symptoms have improved. Vital Signs: 07:19 BP 137 / 83; Pulse 88; Resp 17 S; Temp 98.4(TE); Pulse Ox 100% on R/A; Weight 81.65 kg; jl7 Height 5 ft. 10 in. (177.80 cm); Pain 0/10; 12:19 BP 134 / 75; Pulse 93; Resp 18; Pulse Ox 96% on R/A; db 12:30 BP 126 / 76; Pulse 83; Resp 16; Pulse Ox 100% on R/A; db 07:19 Body Mass Index 25.83 (81.65 kg, 177.80 cm) jl7 [place] Coma Score: 12:19 Eye Response: spontaneous(4). Verbal Response: oriented(5). Motor Response: obeys db commands(6). Total: 15. ED Course: 06:52 Patient arrived in ED. mr 07:02 Gael Ayala MD is Attending Physician. rt 07:20 Triage completed. jl7 07:20 Arm band placed on right wrist. jl7 10:22 Test, Serum Sent. jl7 10:22 Type And Screen Sent. jl7 10:22 Magnesium Sent. jl7 10:22 CMP Sent. jl7 10:22 CBC with Diff Sent. jl7 12:19 Patient has correct armband on for positive identification. Placed in gown. Bed in low db position. Call light in reach. Side rails up X 1. Client placed on continuous cardiac and pulse oximetry monitoring. NIBP monitoring applied. Warm blanket given. 12:19 No provider procedures requiring assistance completed. db 12:26 Yazmin Toro, RN is Primary Nurse. db 12:26 Inserted saline lock: 20 gauge in right antecubital area, using aseptic technique. db ,using aseptic technique. placed by another staff member. 13:24 IV discontinued, intact, bleeding controlled, No redness/swelling at site. db Administered Medications: 12:40 Drug: NS 0.9% 1000 ml Route: IV; Rate: 1 bolus; Site: right antecubital; db 13:37 Follow up: Response: No adverse reaction; IV Status: Completed infusion; IV Intake: db 1000ml Medication: 12:19 VIS not applicable for this client. db Intake: 13:37 IV: 1000ml; Total: 1000ml. db Outcome: 12:48 Discharge ordered by . rt 13:24 Discharged to home ambulatory. db 13:24 Condition: stable 13:24 Discharge instructions given to patient, Instructed on discharge instructions, follow up and referral plans. Demonstrated understanding of instructions, Prescriptions given X 1. 13:39 Patient left the ED. db Signatures: Anuja Castro Bindu Bass RN RN jl7 Yazmin Toro, RN RN db Gael Ayala MD MD rt
[2022-07-13 14:02] VITALS: TEMP 98.4
[2022-07-13 14:05] VITALS: BP 126/76; O2SAT 100
--- NOTE | 2022-07-14 16:05 | EKG ---
Test Date: 2022-07-13 Test Time: 12:20:47 Diamond Selector: ELISABETH MEASUREMENT RESULTS: Intervals: Rate: 79 VA: 144 QRSD: 84 QT: 354 QTc: 405 [place]: P: 49 VA: 144 QRS: 76 T: 60 INTERPRETIVE STATEMENTS: Normal sinus rhythm Normal ECG Compared to ECG 02/25/2021 19:55:24 No significant changes Electronically Signed On 07-14-22 16:03:59 BLANKER OPERATOR by Fan Gamboa
== END 2022-07-13 13:39 | disposition home or self-care (01) ==
LOC: ER 06:48
DX: N92.0 Excessive and frequent menstruation with regular cycle (principal); Z88.0 Allergy status to penicillin
CPT/HCPCS: 36415; 80053; 83735; 84484; 84703; 85025; 93005; 96360; 99284; J7030

== ENCOUNTER 2022-08-28 07:36 | Emergency (ER) | payer OTHER, SELFPAY ==
--- OUTSIDE RECORDS SUMMARY | 2022-08-28 07:39 | XMS REPORT | Continuity of Care Document ---
:1975 Author Organization [facility] t Address 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 Post term Post term Disease Active Overview: Univers , , 7-15 ICD10 it y of delivered delivered 00:00: Diagnosis [place] 00 Term Medical [employer]oth 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 Utility Tubal Tubal Disease Active Univers ligation ligation 7-13 ity of status status 00:00: [place] 00 Medical Branch First First Disease Active Overview: Univer s degree degree 7 ICD10 ity of perineal perineal 00:00: Diagnosis [place] as laceration laceration 00 Term Me dical during during Cloth 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 delivery delivery Utility Disease Active U [...] tract tract 00:00: [place] infection infection 00 [facility] Branch History of History of Disease [...] 00:00:00 14:28:21 ity of normal normal 00:00: [place] 00 [facility] Disease Resolve 2008-01-21 2008-01-21 Univers with with d 5 00:00:00 14:28:21 ity of history of [place] of [place] 00 Medica l Branch Encounter Encounter Disease Resolve 2008-01-21 2015-04-11 Univers for for d 5- 00:00:00 22:46:27 [place] of 00[place] screening screening 00 [facility] of mother of mother Bran ch Urinary Urinary Disease Resolve 2008-01-21 2008-01-21 Univers tract tract d 11-17 00:00:00 14:28:21 ity of infection, infection, [place] site not site not 00 Medica l specified specified Bran ch Allergies, Adverse Reactions, Alerts Allergy Allergy Status Severity Reaction(s) Onset Inactive Treating Comm ents Source Name Type Date Date Clinician PENICILL Drug Active Unknown-Cmnt Un brendan INS Class 8-29 ity of 00:00: [place] 00 Medical Branch Penicill Propensi Active Unknown - Uni vers ins ty to See comments 8-29 ity of adverse 00:00: [place] reaction 00 Medical s Branch Social History Social Habit Start Date Stop Date Quantity Comments Source Exposure to Not sure [facility] SARS-CoV-2 [facility] (event) Branch Tobacco use and 2018-10-25 2018-10-25 Never used Universit y of exposure 00:00:00 00:00:00 [facility] Alcohol intake 2018-10-25 2018-10-25 Current drinker Unive rsity of 00:00:00 00:00:00 of alcohol [facility] (finding) Branch Alcohol Comment 2013-04-03 2013-04-03 wine 1 glass per Uni versity of 00:00:00 00:00:00 evening [facility] Sex Ass[birth year] At [birth year] Universit y of 00:00:00 00:00:00 [place] [facility] Smoking Status Start Date Stop Date Source Never smoker [facility] Medical Branch Medications Ordered Filled Start Stop [...] by ity of tablet 00:00: mouth 2 (two) Medical times Branch daily with meals. diclofenac Yes 75mg Take 1 Unive rs 75 mg EC 9-06 tablet by ity of tablet 00:00: mouth 2 [place] (two) Medical times Branch daily with meals. [...] lower every Medical quadrant morning. Branch phentermine 2017- Yes Abdominal 37.5mg Take 37.5 [...] 2020-11-14 02:30:00 160 mm[Hg] Univer sity of [facility] Diastolic blood 2020-11-14 02:30:00 87 mm[facility]Hg[facility] 2020-11-14 02:30:00 99 /min Universi ty [facility] Body temperature 2020-11-14 02:30:00 37.06 Renetta [facility] Respiratory rate 2020-11-14 02:30:00 18 /min [facility] Body height 2020-11-14 02:30:00 177.8 cm Universi ty [facility] Body weight 2020-11-14 02:30:00 86.183 kg Universi ty [facility] BMI 2020-11-14 02:30:00 27.26 [facility] in 2020-11-14 02:30:00 98 /min [facility] Arterial blood by [facility] Pulse oximetry Branch Systolic blood 2020-11-14 02:30:00 160 mm[Hg] [facility] Diastolic blood 2020-11-14 02:30:00 87 mm[Hg] [facility] Heart rate 2020-11-14 02:30:00 99 /min Universi ty [facility] Body temperature 2020-11-14 02:30:00 37.06 Renetta [facility] Respiratory rate 2020-11-14 02:30:00 18 /min [facility] Body height 2020-11-14 02:30:00 177.8 cm Universi ty [facility] Body weight 2020-11-14 02:30:00 86.183 kg Universi ty [facility] BMI 2020-11-14 02:30:00 27.26 kg/m2 Universi ty [facility] Medical Branch Oxygen saturation in 2020-11-14 02:30:00 98 /min [facility] Arterial blood by [facility] Pulse oximetry Branch Procedures Procedure Date / Time Performed Performing Clinician Sourc e XR KNEE <3 VW LEFT 2020-11-14 02:50:39 Rajan Sommer [facility] Plan of Care Planned Activity Planned Date Details Comments Source Future Scheduled 2023 Screening for [facility] Test 00:00:00 malignant neoplasm Medical B ranch of colon (procedure) [code = 972271533] Future Scheduled 2023 Screening for University [facility] Test 00:00:00 malignant neoplasm Medical B ranch of colon (procedure) [code = 753111598] Future Scheduled 2021-03-11 INFLUENZA VACCINE [facility] Test 00:00:00 (Season Ended) [code Medical Branch = INFLUENZA VACCINE (Season Ended)] Future Scheduled 2021-03-11 [facility]:00 (Season Ended) [code Medical Branch = INFLUENZA VACCINE (Season Ended)] Future Scheduled 2021-03-08 Screening for University [facility] Test 00:00:00 malignant neoplasm Medical B ranch of cervix (procedure) [code = 937800273] Future Scheduled 2021-03-08 Screening for University [facility] Test 00:00:00 malignant neoplasm Medical B ranch of cervix (procedure) [code = 577125475] Future Scheduled 2019-03-08 Screening for University [facility] Test 00:00:00 malignant neoplasm Medical B ranch of breast (procedure) [code = 111646973] Future Scheduled 2019-03-08 Screening for University [facility] Test 00:00:00 malignant neoplasm Medical B ranch of breast (procedure) [code = [id number]] Future Scheduled 1992-01-14 DTaP,Tdap,and Td Univers ity [facility] Test 00:00:00 Vaccines (1 - Tdap) Medical Branch [code = DTaP,Tdap,and Td Vaccines (1 - Tdap)] Future Scheduled 1992-01-14 DTaP,Tdap,and Td Univers ity [facility] Test 00:00:00 Vaccines (1 - Tdap) Medical Branch [code = DTaP,Tdap,and Td Vaccines (1 - Tdap)] Future Scheduled 1989 SARS-CoV-2 [facility] Test 00:00:00 (COVID-19) Vaccine Medical B ranch (1) [code = SARS-CoV-2 (COVID-19) Vaccine (1)] Future Scheduled 1989 SARS-CoV-2 [facility] Test 00:00:00 (COVID-19) Vaccine Medical B ranch (1) [code = SARS-CoV-2 (COVID-19) Vaccine (1)] Future Scheduled 1985 Depression screening Uni [facility] [place] Test 00:00:00 (procedure) [code = Medical Branch [id number]] Future Scheduled 1985 Depression screening [facility] [place] Test 00:00:00 (procedure) [code = Medical Branch [id number]] Future Scheduled XR KNEE <3 VW LEFT [facility] [place] Test [code = 97708] Medical Branc h Encounters Start End Encounter Admission Attending Care Care Encounter Source Date/Time Date/Time Type Type Clinicians Facility Department ID 2021-05-10 Emergency [facility] [id number] Univers 17:39:57 ity [facility] 2021-05-10 Emergency [facility] [id number] Univers 17:39:53 [facility] 2008-02-12 Inpatient P DOCTOR [facility] [id number] Univers 00:00:00 UNASSIGNED, 7 ity of [facility] 2020-11-13 2020-11-13 Emergency , [facility] [id number] 21:32:00 22:27:00 Rajan Lindquist [id number] [place] [id number] [place] [id number] 2020-11-13 2020-11-13 Emergency Iam [facility] [id number] 20:58:00 21:22:00 Cassidy Lindquist [id number] [place] [id number] [place] [id number] 2018-10-25 2018-10-25 Emergency Paresh [facility]IN [facility] ERT [id number] Univers 16:23:34 19:15:00 REN ity [facility] 2008-01-20 2008-01-23 Inpatient P ANA LEMUS [facility] [place] [id number] Univers 18:38:00 17:09:00 ANA LEMUS 5 i ty of [facility] 2007-12-29 2007-12-29 Outpatient [facility] [id number] Univers 00:00:00 10:35:40 2 ity of [facility] 2007-11-14 2007-11-14 Outpatient P KEARA COLON [facility] [id number] Univers 09:47:00 23:59:00 9 ity of [facility] 2007-08-21 2007-08-21 Outpatient [facility] [id number] Univers 00:00:00 16:24:31 4 ity of [facility] 2007-08-21 2007-08-21 Outpatient [facility] [id number] Univers 00:00:00 15:13:21 6 ity [facility] 2007-06-30 2007-06-30 Outpatient [facility] [id number] Univers 00:00:00 09:31:22 8 ity of [facility] 2007-06-12 2007-06-12 Outpatient [facility] [id number] Univers 00:00:00 10:23:12 3 ity of [facility] 2006-11-17 2006-11-17 Outpatient [facility] [id number] Univers 00:00:00 11:46:32 2 ity of [facility] 2006-10-19 2006-10-19 Outpatient [facility] [id number] Univers 00:00:00 13:53:51 7 ity of [facility] 2006-10-10 2006-10-10 Outpatient [facility] [id number] Univers 00:00:00 14:07:32 8 ity [facility] Results This patient has no known results.
[2022-08-28] MEDS ORDERED: IBUPROFEN 400 MG TAB ONE (09:00)
--- NOTE | 2022-08-28 09:06 | RAD REPORT ---
EXAM DESCRIPTION: RAD - Foot Right 3 View - 08/28/2022 8:31 am CLINICAL HISTORY: foot pain COMPARISON: No comparisons FINDINGS/IMPRESSION: No acute fracture. No malalignment. No significant focal degenerative changes.
--- NOTE | 2022-08-28 09:17 | ER ---
Nurse's Notes [facility] Name: Yazmin Monzon Age: 47 yrs Sex: Female : 1975 Arrival Date: 08/28/2022 Time: 07:39 Bed 20 Private MD: Diagnosis: Pain in right foot;Cellulitis of the Right Foot Presentation: 08/28 07:46 Chief complaint: Patient states: pain to top of right foot and ball of foot over past iw 2-3 days. Coronavirus screen: At this time, the client does not indicate any symptoms associated with coronavirus-19. Ebola Screen: Patient negative for fever greater than or equal to 101.5 degrees Fahrenheit, and additional compatible Ebola Virus Disease symptoms Patient denies exposure to infectious person. Patient denies travel to an Ebola-affected area in the 21 days before illness onset. No symptoms or risks identified at this time. Initial Sepsis Screen: Does the patient meet any 2 criteria? No. Patient's initial sepsis screen is negative. Does the patient have a suspected source of infection? No. Patient's initial sepsis screen is negative. Risk Assessment: Do you want to hurt yourself or someone else? Patient reports no desire to harm self or others. Onset of symptoms was August 25, 2022. 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 - Social history:: Smoking status: unknown. Screenin:00 [facility] ED Fall Risk Assessment (Adult) History of falling in the last 3 months, aa5 including since admission No falls in past 3 months (0 pts) Confusion or Disorientation No (0 pts) Intoxicated or Sedated No (0 pts) Impaired Gait No (0 pts) Mobility Assist Device Used No (0 pt) Altered Elimination No (0 pt) Score/Fall Risk Level 0 - 2 = Low Risk. Abuse screen: Denies threats or abuse. Nutritional screening: No deficits noted. Tuberculosis screening: No symptoms or risk factors identified. Assessment: 08:00 General: Appears comfortable, Behavior is calm, cooperative. Pain: Complains of pain in aa5 right foot Pain began 2-3 days ago. Is continuous. Neuro: Level of Consciousness is awake, alert, obeys commands, Oriented to person, place, time, situation. Cardiovascular: Patient's skin is warm and dry. Respiratory: Airway is patent Respiratory effort is even, unlabored, Respiratory pattern is regular, symmetrical. GI: No signs and/or symptoms were reported involving the gastrointestinal system. : No signs and/or symptoms were reported regarding the genitourinary system. EENT: No signs and/or symptoms were reported regarding the EENT system. Derm: Skin is pink, warm \T\ dry. Redness noted to right 4th and 5th toes. Musculoskeletal: Range of motion: intact in all extremities. 08:59 Reassessment: Patient is alert, oriented x 3, equal unlabored respirations, skin aa5 warm/dry/pink. Vital Signs: 07:46 BP 131 / 85; Pulse 94; Resp 16; Temp 98.4; Pulse Ox 100% on R/A; Weight 79.38 kg; iw Height 5 ft. 10 in. (177.80 cm); Pain 8/10; 09:28 BP 130 / 84; Pulse 92; Resp 17; Pulse Ox 100% on R/A; kr3 07:46 Body Mass Index 25.11 (79.38 kg, 177.80 cm) iw ED Course: 07:39 Patient arrived in ED. as 07:47 Triage completed. iw 07:48 Arm band placed on. iw 07:51 Aliya Prado, MARIBEL is Primary Nurse. aa5 08:00 Patient has correct armband on for positive identification. Bed in low position. Call aa5 light in reach. Side rails up X 1. 08:04 Ricardo Leahy PA is PHCP. [facility] 08:04 Gael Ayala MD is Attending Physician. jmm 08:33 Foot Right 3 View XRAY In Process Unspecified. EDMS 09:07 Report given to MARIBEL Cadena. aa5 09:16 Han Schulz DPM is Referral Physician. jmm 09:29 No provider procedures requiring assistance completed. Patient did not have IV access kr3 during this emergency room visit. Administered Medications: 08:59 Drug: Ibuprofen 800 mg Route: PO; aa5 09:30 Follow up: Response: No adverse reaction kr3 Medication: 09:29 VIS not applicable for this client. kr3 Outcome: 09:16 Discharge ordered by . regi 09:29 Discharged to home ambulatory. kr3 09:29 Condition: stable :29 Discharge instructions given to patient, Instructed on discharge instructions, follow up and referral plans. medication usage, Demonstrated understanding of instructions, follow-up care, medications, Prescriptions given X 3. 09:30 Patient left the ED. kr3 Signatures: Dispatcher [employer] EDMS Ricardo Leahy PA PA jmm Martinez, Amelia as Williams, Irene, Aliya Britt RN, RN RN aa5 Tammi Da Silva RN RN kr3 Corrections: (The following items were deleted from the chart) 09:06 09:04 General: Appears comfortable, Behavior is calm, cooperative, aa5 aa5 09:06 09:04 Pain: aa5 aa5
--- NOTE | 2022-08-28 09:17 | EDPHYS ---
Physician Documentation [facility] Name: Yazmin Monzon Age: 47 yrs Sex: Female : 1975 Arrival Date: 08/28/2022 Time: 07:39 Bed 20 Private MD: ED Physician Gael Ayala HPI: 08/28 08:17 This 47 yrs old Female presents to ER via Ambulatory with complaints of Foot Pain. jmm 08:17 The patient presents with pain. Onset: The symptoms/episode began/occurred acutely, jmm today. Modifying factors: The symptoms are alleviated by nothing. the symptoms are aggravated by nothing. This is a 47 year old female with ahistory of endometriosis, htn that presents to the ED with complaints of right foot pain at the level of the 4th and 5th toe. Patient states she just completed an 8 hour shift at work. Denies known injury. Denies fever. . LEATHERSMITH: 09:30 LMP N/A - control method kr3 Historical: - Allergies: 07:47 PENICILLINS; iw - Home Meds: 07:47 [place] Carbonate Oral [Active]; Prozac Oral [Active]; [place] 10-325 mg Oral tab every iw 4-6 hours [Active]; - PMHx: 07:47 Back pain; Endometrosis; Hypertensive disorder; iw - PSHx: 07:47 tubal ligation; iw - Immunization history:: Adult Immunizations. - Social history:: Smoking status: unknown. ROS: 08:17 Constitutional: Negative for fever, chills, and weight loss, Cardiovascular: Negative jmm for chest pain, palpitations, and edema, Respiratory: Negative for shortness of breath, cough, wheezing, and pleuritic chest pain. 08:17 MS/extremity: Positive for pain. 08:17 Skin: Positive for erythema. 08:17 All other systems are negative. Exam: 08:17 Constitutional: This is a well developed, well nourished patient who is awake, alert, jmm and in no acute distress. Head/Face: atraumatic. Eyes: EOMI, no conjunctival erythema appreciated ENT: Moist Mucus Membranes Neck: Trachea midline, Supple Chest/axilla: Normal chest wall appearance and motion. Cardiovascular: Regular rate and rhythm. No edema appreciated Respiratory: Normal respirations, no respiratory distress appreciated Abdomen/GI: Non distended Back: Normal ROM 08:17 Musculoskeletal/extremity: Full dorsalis pedis pulse, compartments are soft, neurovascular intact. 08:17 Skin: erthema noted to the right 4th, 5th toe, mildly ttp, . 08:17 Neuro: Orientation: is normal, Mentation: is normal, Memory: is normal. 08:17 Psych: Behavior/mood is pleasant, cooperative. Vital Signs: 07:46 BP 131 / 85; Pulse 94; Resp 16; Temp 98.4; Pulse Ox 100% on R/A; Weight 79.38 kg; iw Height 5 ft. 10 in. (177.80 cm); Pain 8/10; 09:28 BP 130 / 84; Pulse 92; Resp 17; Pulse Ox 100% on R/A; kr3 07:46 Body Mass Index 25.11 (79.38 kg, 177.80 cm) iw MDM: 08:11 Patient medically screened. [place] 09:13 Data reviewed: vital signs, nurses notes. I considered the following discharge [place] prescriptions or medication management in the emergency department Medications were administered in the Emergency Department. See MAR. Independent interpretation of the following test(s) in the Emergency Department X-Ray: My interpretation is no fracture. Counseling: I had a detailed discussion with the patient and/or guardian regarding: the historical points, exam findings, and any diagnostic results supporting the discharge/admit diagnosis, radiology results, the need for outpatient follow up, to return to the emergency department if symptoms worsen or persist or if there are any questions or concerns that arise at home. ED course: Xray negative. Concerned for cellulitis. Will treat with oral abx. Patient otherwise given strict return precautions. patient understood and agrees with the plan of care. . 08/28 08:12 Order name: Foot Right 3 View XRAY; Complete Time: 09:08 [place] Administered Medications: 08:59 Drug: Ibuprofen 800 mg Route: PO; aa5 09:30 Follow up: Response: No adverse reaction kr3 Disposition: 14:35 Co-signature as Attending Physician, Gael Ayala MD I reviewed the patient's care rt provided by the Advanced Practice Provider and agree with the diagnosis and treatment plan. Disposition Summary: 08/28/22 09:16 Discharge Ordered Location: Home [place] Condition: Stable [place] Diagnosis - Pain in right foot jmm - Cellulitis of the Right Foot [place] Followup: jm - With: Han Schulz DPM - When: 2 - 3 days - Reason: Recheck today's complaints, Continuance of care, Re-evaluation by your physician Discharge Instructions: - Discharge Summary Sheet jmm - Cellulitis, Adult jmm - Musculoskeletal Pain jm - Foot Pain [place] Forms: - Medication Reconciliation Form [place] - Thank You Letter [place] - Antibiotic Education [place] - Prescription Opioid Use [place] - Work release form [place] Prescriptions: - Doxycycline Hyclate 100 mg Oral Tablet - take 1 tablet by ORAL route every 12 hours; 20 tablet; Refills: 0, Product [place] Selection Permitted - Diclofenac Sodium 75 mg Oral Tablet Sustained Release - take 1 tablet by ORAL route 2 times per day; 30 tablet; Refills: 0, Product [place] Selection Permitted - orphenadrine citrate 100 mg Oral Tablet Sustained Release - take 1 tablet by ORAL route 2 times per day As needed; 20 tablet; Refills: 0, [place] Product Selection Permitted Signatures: Dispatcher [employer] Ricardo Justice PA PA [place] Meg Devine, Aliya Britt RN RN RN aa5 Tammi Da Silva RN RN kr3 Gael Ayala MD MD rt
[2022-08-28 09:34] VITALS: TEMP 98.4; O2SAT 100
[2022-08-28 09:35] VITALS: BP 130/84
== END 2022-08-28 09:30 | disposition home or self-care (01) ==
LOC: ER 07:36
DX: L03.115 Cellulitis of right lower limb (principal); I10 Essential (primary) hypertension; Z88.0 Allergy status to penicillin
CPT/HCPCS: 99283

== ENCOUNTER 2022-11-29 22:37 | Emergency (ER) | payer OTHER ==
--- OUTSIDE RECORDS SUMMARY | 2022-11-29 22:40 | XMS REPORT | Continuity of Care Document ---
:1975 Author Organization [facility] t Address [address] [place] [address] [address] [place] [address] Care Team Providers Name Role Phone DOCTOR UNASSIGNED, NO NAME Attending Clinician Unavailable Rajan Sommer DO Attending Clinician Cassidy Vitale MD Attending Clinician REN CHIN Attending Clinician Unavailable ANA LEMUS Attending Clinician Unavailable ANA LEMUS Attending Clinician Unavailable KEARA COLON Attending Clinician Unavailable LEEANN GUADALUPE Admitting Clinician Unavailable REN CHIN Admitting Clinician Unavailable ANA LEMUS Admitting Clinician Unavailable KEARA COLON Admitting Clinician Unavailable Problems This patient has no known problems. Allergies, Adverse Reactions, Alerts Allergy Allergy Status Severity Reaction(s) Onset Inactive Treating Comm ents Source Name Type Date Date Clinician PENICILL Drug Active Unknown-Cmnt Un brendan INS Class 8-29 ity of 00:00: [address] Medications This patient has no known medications. Procedures This patient has no known procedures. Encounters Start End Encounter Admission Attending Care Care Encounter Source Date/Time Date/Time Type Type Clinicians Facility Department ID 2021-05-10 Emergency [facility] [id number] Univers 17:39:57 ity of [facility] 2021-05-10 Emergency [facility] [id number] Univers 17:39:53 ity of [facility] 2008-02-12 Inpatient P DOCTOR [facility] [place] [id number] Univers 00:00:00 UNASSIGNED, 7 ity of [facility] 2020-11-13 2020-11-13 Emergency , [facility] [id number] 21:32:00 22:27:00 Rajan Lindquist [id number] [place] [id number] [place] [id number] 2020-11-13 2020-11-13 Emergency Iam, [facility] [id number] 20:58:00 21:22:00 Cassidy Lindquist [id number] [place] [id number] [place] [id number] 2018-10-25 2018-10-25 Emergency X GIUSEPPE, [facility] ERT [id number] Univers 16:23:34 19:15:00 REN ity [facility] 2008-01-20 2008-01-23 Inpatient P ANA LEMUS [facility] [place] [id number] Univers 18:38:00 17:09:00 ANA LEMUS 5 i ty [facility] 2007-12-29 2007-12-29 Outpatient [facility] [id number] Univers 00:00:00 10:35:40 2 ity [facility] 2007-11-14 2007-11-14 Outpatient P KEARA COLON [facility] [place] [id number] Univers 09:47:00 23:59:00 9 ity [facility] 2007-08-21 2007-08-21 Outpatient [facility] [id number] Univers 00:00:00 16:24:31 4 ity [facility] 2007-08-21 2007-08-21 Outpatient [facility] [id number] Univers 00:00:00 15:13:21 6 ity [facility] 2007-06-30 2007-06-30 Outpatient [facility] [id number] Univers 00:00:00 09:31:22 8 ity [facility] 2007-06-12 2007-06-12 Outpatient [facility] [id number] Univers 00:00:00 10:23:12 3 ity [facility] 2006-11-17 2006-11-17 Outpatient [facility] [id number] Univers 00:00:00 11:46:32 2 ity [facility] 2006-10-19 2006-10-19 Outpatient [facility] [id number] Univers 00:00:00 13:53:51 7 [facility] 2006-10-10 2006-10-10 Outpatient [facility] [id number] Univers 00:00:00 14:07:32 8 [facility] Results This patient has no known results.
[2022-11-30] MEDS ORDERED: methocarbamoL 500 MG TAB ONE (00:16)
[2022-11-30] MEDS ORDERED: IBUPROFEN 400 MG TAB ONE (00:16)
--- NOTE | 2022-11-30 01:47 | EDPHYS ---
Physician Documentation [facility] Name: Yazmin Monzon Age: 47 yrs Sex: Female : 1975 Arrival Date: 11/29/2022 Time: 22:37 Bed 12 Private MD: ED Physician Bucky Schroeder HPI: 11/29 22:56 This 47 yrs old Female presents to ER via Unassigned with complaints of Head sp4 Injury-Adult, Fall Injury. 23:02 Very pleasant 47-year-old female presents with acute onset of lower back pain, scalp sp4 pain and right knee pain after she fell at work today at a local [employer]. Patient states she fell at work in the morning time and then developed worsening lower back pain throughout the day at home. Patient has concurrent right knee pain, right knee abrasion, also pain posterior headache, scalp, from recent fall, patient denies loss of consciousness, denies vomiting denies blurry vision. Historical: - Allergies: 23:02 PENICILLINS; kl - Home Meds: 23:02 lisinopril-hydrochlorothiazide Oral [Active]; [place] Carbonate Oral [Active]; [place] kl 10-325 mg Oral tab every 4-6 hours [Active]; Prozac Oral [Active]; - PMHx: 23:02 Back pain; Endometrosis; Hypertensive disorder; kl - PSHx: 23:02 tubal ligation; kl - Immunization history:: Adult Immunizations up to date. - Social history:: Smoking status: Patient denies any tobacco usage or history of. - Family history:: not pertinent. ROS: 23:02 Constitutional: Negative for fever, chills, and weight loss, positive for headache, sp4 scalp pain, scalp contusion, right knee pain, right knee abrasion, lower back pain Eyes: Negative for injury, pain, redness, and discharge, ENT: Negative for injury, pain, and discharge, Neck: Negative for injury, pain, and swelling, Cardiovascular: Negative for chest pain, palpitations, and edema, Respiratory: Negative for shortness of breath, cough, wheezing, and pleuritic chest pain, Abdomen/GI: Negative for abdominal pain, nausea, vomiting, diarrhea, and constipation, Back: Positive for back injury and back pain : Negative for injury, bleeding, discharge, and swelling, MS/Extremity: Positive for right knee injury, and right knee pain and abrasion. Skin: Negative for injury, rash, and discoloration, positive for right knee abrasion Neuro: Negative for headache, weakness, numbness, tingling, and seizure, Psych: Negative for depression, anxiety, Allergy/Immunology: Negative for hives, rash, and allergies Endocrine: Negative for neck swelling, polydipsia, polyuria, polyphagia, and weight changes Hematologic/Lymphatic: Negative for swollen nodes, abnormal bleeding, and unusual bruising Exam: 23:02 Constitutional: This is a well developed, well nourished patient who is awake, alert, sp4 and in no acute distress. Cheerful disposition Head/Face: Normocephalic, right posterior scalp tenderness, no sign of hematoma Eyes: Pupils equal round and reactive to light, extra-ocular motions intact. Lids and lashes normal. Conjunctiva and sclera are not injected. Cornea within normal limits. Periorbital areas with no swelling, redness, or edema. ENT: Nares patent. No nasal discharge, no septal abnormalities noted. Tympanic membranes are normal and external auditory canals are clear. Oropharynx with no redness, swelling, or masses, exudates, or evidence of obstruction, uvula midline. Mucous membranes moist. Neck: Trachea midline, no thyromegaly or masses palpated, and no cervical lymphadenopathy. Supple, full range of motion without nuchal rigidity, or vertebral point tenderness. No Meningismus. Chest/axilla: Normal chest wall appearance and motion. Nontender with no deformity. No lesions are appreciated. Cardiovascular: Regular rate and rhythm with a normal S1 and S2. No gallops, murmurs, or rubs. Normal PMI, no JVD. No pulse deficits. Respiratory: Lungs have equal breath sounds bilaterally, clear to auscultation and percussion. No rales, rhonchi or wheezes noted. No increased work of breathing, no retractions or nasal flaring. Abdomen/GI: Soft, non-tender, with normal bowel sounds. No distension or tympany. No guarding or rebound. No evidence of tenderness throughout. Back: No spinal tenderness. No costovertebral tenderness. Skin: Warm, dry with normal turgor. Normal color with no rashes, no lesions, and no evidence of cellulitis. Small right knee abrasion and contusion MS/ Extremity: Pulses equal, no cyanosis. Neurovascular intact. Full, normal range of motion. Small right knee abrasion and contusion Neuro: Awake and alert, GCS 15, oriented to person, place, time, and situation. Cranial nerves II-XII grossly intact. Motor strength 5/5 in all extremities. Sensory grossly intact. Psych: Awake, alert, with orientation to person, place and time. Behavior, mood, and affect are within normal limits Vital Signs: 22:58 BP 118 / 74; Pulse 90; Resp 18; Temp 99(TE); Pulse Ox 100% on R/A; Weight 83.91 kg (R); kl Height 5 ft. 10 in. ; Pain 7/10; 11/30 02:07 BP 112 / 77; Pulse 66; Resp 15; Temp 97(TE); Pulse Ox 98% on R/A; kl 11/29 22:58 Body Mass Index 26.54 (83.91 kg, 177.8 cm) kl 11/29 22:58 Pain Scale: Adult Elliot Coma Score: 11/29 22:58 Eye Response: spontaneous(4). Motor Response: obeys commands(6). Verbal Response: kl oriented(5). Total: 15. MDM: 22:57 Patient medically screened. sp4 11/30 01:45 Differential diagnosis: Contusion of Hematoma on Concussion cerebral contusion. Data sp4 reviewed: vital signs, nurses notes, radiologic studies, CT scan, plain films. ED course: Right knee x-ray revealed tricompartmental degenerative changes, no acute fracture, CT L-spine revealed no acute fracture, patient stable for discharge home with work note recommending light duty, breaks every 2 hours no lifting anything heavier than 10 pounds. 11/29 23:01 Order name: CT Lumbar Spine Wo Con sp4 11/29 23:02 Order name: Knee Right 3 View XRAY sp4 Administered Medications: 00:05 Drug: Ibuprofen PO 800 mg Route: PO; kd3 02:07 Follow up: Response: No adverse reaction; Marked relief of symptoms kl 00:05 Drug: Methocarbamol PO 1500 mg Route: PO; kd3 02:06 Follow up: Response: No adverse reaction; Marked relief of symptoms kl Disposition Summary: 11/30/22 01:47 Discharge Ordered Location: Home sp4 Problem: new sp4 Symptoms: have improved sp4 Condition: Stable sp4 Diagnosis - Lumbar contusion, acute fall, injury associated with acute fall, right knee sp4 contusion, right knee abrasion, acute lower back pain, soft tissue contusion and injury Followup: sp4 - With: Private Physician - When: 7 - 10 days - Reason: Recheck today's complaints Discharge Instructions: - Discharge Summary Sheet sp4 - Acute Back Pain, Adult sp4 Forms: - Prescription Opioid Use sp4 Prescriptions: - Ibuprofen 800 mg Oral Tablet - take 1 tablet by ORAL route every 8 hours As needed take with food; 30 tablet; sp4 Refills: 0, Product Selection Permitted - Tramadol 50 mg Oral Tablet - take 1 tablet by ORAL route every 8 hours as needed for pain; 30 tablet; sp4 Refills: 0, Product Selection Permitted - methocarbamol 750 mg Oral Tablet - take 2 tablet by ORAL route every 8 hours for 2 days PRN pain; 30 tablet; sp4 Refills: 0, Product Selection Permitted Signatures: Dispatcher [employer] Rosie Lawrence RN RN kl Doucette, Kyli, RN RN kd3 Bucky Schroeder MD MD sp4
--- NOTE | 2022-11-30 01:47 | ER ---
Nurse's Notes [facility] Name: Yazmin Monzon Age: 47 yrs Sex: Female : 1975 Arrival Date: 11/29/2022 Time: 22:37 Bed 12 Private MD: Diagnosis: Lumbar contusion, acute fall, injury associated with acute fall, right knee contusion, right knee abrasion, acute lower back pain, soft tissue contusion and injury Presentation: 11/29 22:58 Chief complaint: Patient states: fell at 230 pm today reports right knee pain lower kl back pain and pain to back of head reports tripped and fell while stepping off of stool reports completed shift denies LOC. Coronavirus screen: Vaccine status: Patient reports receiving the 2nd dose of the covid vaccine. Ebola Screen: Patient negative for fever greater than or equal to 101.5 degrees Fahrenheit, and additional compatible Ebola Virus Disease symptoms. Mechanism of Injury: resulted from a fall, while walking. Initial Sepsis Screen: Does the patient meet any 2 criteria? No. Patient's initial sepsis screen is negative. Does the patient have a suspected source of infection? No. Patient's initial sepsis screen is negative. Risk Assessment: Do you want to hurt yourself or someone else? Patient reports no desire to harm self or others. 22:58 Method Of Arrival: Ambulatory kl 22:58 Acuity: GEORGETTE 4 kl Triage Assessment: 23:03 General: Appears in no apparent distress. comfortable, Behavior is calm, cooperative. kl Pain: Complains of pain in lumbar area. Neuro: Level of Consciousness is awake, alert, obeys commands, Oriented to person, place, time, situation, Speech is normal, Facial symmetry appears normal, Reports headache. Historical: - Allergies: 23:02 PENICILLINS; kl - Home Meds: 23:02 lisinopril-hydrochlorothiazide Oral [Active]; [place] Carbonate Oral [Active]; [place] kl 10-325 mg Oral tab every 4-6 hours [Active]; Prozac Oral [Active]; - PMHx: 23:02 Back pain; Endometrosis; Hypertensive disorder; kl - PSHx: 23:02 tubal ligation; kl - Immunization history:: Adult Immunizations up to date. - Social history:: Smoking status: Patient denies any tobacco usage or history of. - Family history:: not pertinent. Screenin/23 02:07 [facility] ED Fall Risk Assessment (Adult) History of falling in the last 3 months, kl including since admission Yes- single mechanical fall (1 pt) Confusion or Disorientation No (0 pts) Intoxicated or Sedated No (0 pts) Impaired Gait No (0 pts) Mobility Assist Device Used No (0 pt) Altered Elimination No (0 pt) Score/Fall Risk Level 0 - 2 = Low Risk Oriented to surroundings, Maintained a safe environment. Abuse screen: Denies threats or abuse. Nutritional screening: No deficits noted. Tuberculosis screening: No symptoms or risk factors identified. Assessment: 02:07 Reassessment: Patient appears in no apparent distress at this time. Patient states kl feeling better. Patient states symptoms have improved. Vital Signs: 11/29 22:58 BP 118 / 74; Pulse 90; Resp 18; Temp 99(TE); Pulse Ox 100% on R/A; Weight 83.91 kg (R); kl Height 5 ft. 10 in. ; Pain 7/10; 11/30 02:07 BP 112 / 77; Pulse 66; Resp 15; Temp 97(TE); Pulse Ox 98% on R/A; kl 11/29 22:58 Body Mass Index 26.54 (83.91 kg, 177.8 cm) kl 11/29 22:58 Pain Scale: Adult kl Elliot Coma Score: 11/29 22:58 Eye Response: spontaneous(4). Motor Response: obeys commands(6). Verbal Response: kl oriented(5). Total: 15. ED Course: 22:41 Patient arrived in ED. ag3 22:56 Bucky Schroeder MD is Attending Physician. sp4 23:02 Triage completed. kl 23:31 Knee Right 3 View XRAY In Process Unspecified. EDMS 23:32 CT Lumbar Spine Wo Con In Process Unspecified. EDMS 11/30 02:07 Patient has correct armband on for positive identification. kl 02:07 No provider procedures requiring assistance completed. Patient did not have IV access kl during this emergency room visit. Administered Medications: 00:05 Drug: Ibuprofen PO 800 mg Route: PO; kd3 02:07 Follow up: Response: No adverse reaction; Marked relief of symptoms kl 00:05 Drug: Methocarbamol PO 1500 mg Route: PO; kd3 02:06 Follow up: Response: No adverse reaction; Marked relief of symptoms alma Outcome: 01:47 Discharge ordered by sp4 02:08 Discharged to home ambulatory. alma 02:08 Condition: stable 02:08 Discharge instructions given to patient, Instructed on discharge instructions, follow up and referral plans. medication usage, Demonstrated understanding of instructions, follow-up care, medications, Prescriptions given X 1. 02:08 Patient left the ED. Signatures: Dispatcher [employer] EDMS Rosie Moreno RN Frances Kan Kyli, RN RN kd3 Bucky Schroeder MD MD sp4
[2022-11-30 02:59] VITALS: BP 112/77; TEMP 97; O2SAT 98
--- NOTE | 2022-11-30 10:31 | RAD REPORT ---
EXAM DESCRIPTION: Knee Right 3 View CLINICAL HISTORY: 47 years Female, PAIN TECHNIQUE: 3 views COMPARISON: None. FINDINGS: BONES/JOINT: No acute fracture or dislocation. Mild degenerative changes medial and flor llofemoral compartment. Lateral compartment is unremarkable. SOFT TISSUES: No suprapatellar joint effusion. No radiopaque foreign body. IMPRESSION: 1. No acute fracture. 2. Mild degenerative changes medial and patellofemoral compartments. Electronically signed by: Pasquale Juarez MD 11/30/2022 12:18 AM CDT Due to temporary technical issues with the PACS/Fluency reporting system, reports are being signed by the in house radiologists without review as a courtesy to insure prompt reporting. The interpreting radiologist is fully responsible for the content of the report.
--- NOTE | 2022-11-30 10:37 | RAD REPORT ---
EXAM DESCRIPTION: Spine Lumbar Wo Con CLINICAL HISTORY: PAIN COMPARISON: None. TECHNIQUE: Contiguous axial images of lumbar spine were obtained utilizing 2 mm slice thickness at 2 mm interval reconstruction. In addition multiplanar reformats in the sagittal and coronal plane were generated and reviewed This exam was performed according to our departmental dose-optimization protocol, which includes auto mated exposure control, adjustment of the mA and/or kV according to patient size and/or use of iterat tuyet reconstruction technique. FINDINGS: There is anatomic alignment of the lumbar spine. Vertebral body height is preserved withou t evidence of acute fracture or subluxation. No retroperitoneal or paraspinal abnormality is seen. L1-2: Unremarkable L2-3: Unremarkable L3-4: Unremarkable L4-5: Unremarkable L5-S1: Unremarkable IMPRESSION: No acute fracture or subluxation of the lumbar spine. Electronically signed by: Junior Riggs MD 11/30/2022 12:20 AM CDT Due to temporary technical issues with the PACS/Fluency reporting system, reports are being signed by the in house radiologists without review as a courtesy to insure prompt reporting. The interpreting radiologist is fully responsible for the content of the report.
== END 2022-11-30 02:08 | disposition home or self-care (01) ==
LOC: ER 22:37
DX: S30.0XXA Contusion of lower back and pelvis, initial encounter (principal); S80.01XA Contusion of right knee, initial encounter; S80.211A Abrasion, right knee, initial encounter; W18.30XA Fall on same level, unspecified, initial encounter; I10 Essential (primary) hypertension; Z88.0 Allergy status to penicillin
CPT/HCPCS: 72131

== ENCOUNTER 2022-12-03 22:53 | Emergency (ER) | payer OTHER ==
--- OUTSIDE RECORDS SUMMARY | 2022-12-03 22:56 | XMS REPORT | Continuity of Care Document ---
:1975 Author Organization [facility] t Address [address] [place] [address] [address] [place] [address] Care Team Providers Name Role Phone DOCTOR [...] brendan INS Class 8-29 ity of 00:00: [address] Medications This patient has no known medications. Procedures This patient has no known procedures. Encounters Start End Encounter Admission Attending Care Care Encounter Source Date/Time Date/Time Type Type Clinicians Facility Department ID 2021-05-10 Emergency [facility] [id number] Univers 17:39:[address] [facility] 2021-05-10 Emergency [facility] [id number] Univers 17:39:[address] [facility] 2008-02-12 Inpatient P DOCTOR [facility] [id number] Univers 00:00:00 UNASSIGNED, 7 ity of [facility] 2020-11-13 2020-11-13 Emergency , [facility] [id number] 21:32:00 22:27:00 Rajan Lindquist [id number] [place] [id number] [place] [id number] 2020-11-13 2020-11-13 Emergency Iam, [facility] [id number] 20:58:00 21:22:00 Cassidy Lindquist [id number] [place] [id number] Dan[place] [id number] 2018-10-25 2018-10-25 Emergency X GIUSEPPE, [facility] ERT [id number] Univers 16:23:34 19:15:00 REN ity [facility] 2008-01-20 2008-01-23 Inpatient P ANA LEMUS [facility] [id number] Univers 18:38:00 17:09:00 ANA LEMUS 5 i ty [facility] 2007-12-29 2007-12-29 Outpatient [facility] [id number] Univers 00:00:00 10:35:40 2 ity [facility] 2007-11-14 2007-11-14 Outpatient P KEARA COLON [facility] [id number] Univers 09:47:00 23:59:00 9 ity [facility] 2007-08-21 2007-08-21 Outpatient [facility] [id number] Univers 00:00:00 16:24:31 4 ity [facility] 2007-08-21 2007-08-21 Outpatient [facility] [id number] Univers 00:00:00 15:13:21 6 ity [facility] 2007-06-30 2007-06-30 Outpatient [facility] [id number] Univers 00:00:00 09:31:22 8 ity [facility] 2007-06-12 2007-06-12 Outpatient [facility] [id number] Univers 00:00:00 10:23:12 3 ity [facility] 2006-11-17 2006-11-17 Outpatient [facility] [id number] Univers 00:00:00 11:46:32 2 ity [facility] 2006-10-19 2006-10-19 Outpatient [facility] [id number] Univers 00:00:00 13:53:51 7 [facility] 2006-10-10 2006-10-10 Outpatient [facility] [id number] Univers 00:00:00 14:07:32 8 [facility] Results This patient has no known results.
--- NOTE | 2022-12-04 00:30 | ER ---
Nurse's Notes [facility] Name: Yazmin Monzon Age: 47 yrs Sex: Female : 1975 Arrival Date: 12/03/2022 Time: 22:53 Bed 29 Private MD: Diagnosis: Low back pain Presentation: 12/03 23:51 Chief complaint: Patient states: i was seen a few days ago here after falling at work. pf1 i injured my back and it hasn't gotten any better and the pain is getting worse. Coronavirus screen: Client denies travel out of the [place] in the last 14 days. At this time, the client does not indicate any symptoms associated with coronavirus-19. Ebola Screen: No symptoms or risks identified at this time. Initial Sepsis Screen: Does the patient meet any 2 criteria? No. Patient's initial sepsis screen is negative. Does the patient have a suspected source of infection? No. Patient's initial sepsis screen is negative. Risk Assessment: Do you want to hurt yourself or someone else? Patient reports no desire to harm self or others. Onset of symptoms was November 29, 2022. 23:51 Method Of Arrival: Ambulatory pf1 23:51 Acuity: GEORGETTE 4 pf1 Triage Assessment: 23:54 General: Appears in no apparent distress. uncomfortable, Behavior is calm, cooperative. pf1 Pain: Complains of pain in back. EENT: No deficits noted. No signs and/or symptoms were reported regarding the EENT system. Neuro: No deficits noted. Seay Agitation-Sedation Scale (RASS): 0 - Alert and Calm Level of Consciousness is awake, alert, obeys commands, Oriented to person, place, time, situation. Cardiovascular: No deficits noted. Denies chest pain, shortness of breath, Capillary refill < 3 seconds Clubbing of nail beds is absent JVD is absent Patient's skin is warm and dry. Respiratory: No deficits noted. Airway is patent Respiratory effort is even, unlabored, Respiratory pattern is regular, symmetrical. GI: No deficits noted. No signs and/or symptoms were reported involving the gastrointestinal system. : No deficits noted. No signs and/or symptoms were reported regarding the genitourinary system. Derm: No deficits noted. No signs and/or symptoms reported regarding the dermatologic system. Skin is intact, is healthy with good turgor, Skin is dry, Skin is normal, Skin temperature is warm. Musculoskeletal: Circulation, motion, and sensation intact. Range of motion: intact in all extremities, Reports pain in back. 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 - Social history:: Smoking status: Patient denies any tobacco usage or history of. Patient uses alcohol, but reports only rare drinking. Screenin/27 00:00 [facility] ED Fall Risk Assessment (Adult) History of falling in the last 3 months, pf1 including since admission Yes- single mechanical fall (1 pt) Confusion or Disorientation No (0 pts) Intoxicated or Sedated No (0 pts) Impaired Gait No (0 pts) Mobility Assist Device Used No (0 pt) Altered Elimination No (0 pt) Score/Fall Risk Level 0 - 2 = Low Risk Oriented to surroundings, Maintained a safe environment, Educated pt \T\ family on fall prevention, incl call for assistance when getting out of bed, Assessed \T\ reinforced patient's understanding of fall precautions, Provided non-skid footwear, Hourly rounding (assess needs \T\ fall precautionary measures) done, Used ambulatory aids as needed (educated on \T\ assisted with), Used gait belt as appropriate. 00:00 Abuse screen: Denies threats or abuse. Nutritional screening: No deficits noted. pf1 Tuberculosis screening: No symptoms or risk factors identified. Assessment: 00:00 General: Appears in no apparent distress. uncomfortable, well groomed, well developed, pf1 Behavior is calm, cooperative, appropriate for age, quiet. Pain: Complains of pain in back Pain began 2-3 days ago. 00:00 Neuro: No deficits noted. Level of Consciousness is awake, alert, obeys commands, pf1 Oriented to person, place, time, situation. Cardiovascular: No deficits noted. Capillary refill < 3 seconds Patient's skin is warm and dry. Respiratory: No deficits noted. Airway is patent Trachea midline Respiratory effort is even, unlabored, Respiratory pattern is regular, symmetrical. GI: No deficits noted. No signs and/or symptoms were reported involving the gastrointestinal system. : No deficits noted. No signs and/or symptoms were reported regarding the genitourinary system. EENT: No deficits noted. No signs and/or symptoms were reported regarding the EENT system. Derm: No deficits noted. No signs and/or symptoms reported regarding the dermatologic system. Musculoskeletal: Reports pain in back. 01:00 Reassessment: Patient appears in no apparent distress at this time. Patient and/or pf1 family updated on plan of care and expected duration. Pain level reassessed. Patient is alert, oriented x 3, equal unlabored respirations, skin warm/dry/pink. Patient states feeling better. Patient states symptoms have improved. 02:00 Reassessment: Patient appears in no apparent distress at this time. Patient and/or pf1 family updated on plan of care and expected duration. Pain level reassessed. Patient is alert, oriented x 3, equal unlabored respirations, skin warm/dry/pink. Patient states feeling better. Patient states symptoms have improved. Vital Signs: 12/03 23:51 BP 149 / 86; Pulse 70; Resp 17 S; Temp 98.3(TE); Pulse Ox 100% on R/A; Weight 86.18 kg pf1 (R); Height 5 ft. 10 in. (R); 12/04 01:47 BP 156 / 78; Pulse 55; Resp 14; Temp 97.9; Pulse Ox 100% ; cg 12/03 23:51 Body Mass Index 27.26 (86.18 kg, 177.8 cm) pf1 ED Course: 12/03 22:55 Patient arrived in ED. jj6 23:14 Seamus Dale PA is PHCP. cp 23:14 Tato Box DO is Attending Physician. cp 23:54 Triage completed. pf1 23:54 Arm band placed on right wrist. pf1 12/04 00:00 Patient has correct armband on for positive identification. Bed in low position. Call pf1 light in reach. 00:00 No provider procedures requiring assistance completed. Patient did not have IV access pf1 during this emergency room visit. Administered Medications: 00:44 Drug: Dexamethasone IM 10 mg Route: IM; Site: left deltoid; cg 01:40 Follow up: Response: No adverse reaction; Marked relief of symptoms pf1 00:45 Drug: Ketorolac IM 30 mg Route: IM; Site: left gluteus; cg 01:40 Follow up: Response: No adverse reaction; Marked relief of symptoms pf1 00:45 Drug: morphine IM 4 mg Route: IM; Site: right gluteus; cg 01:40 Follow up: Response: No adverse reaction; Marked relief of symptoms pf1 00:48 Drug: Lidoderm Topical Patch 5 % (700 mg/patch) 1 patches Route: Topical; Site: cg affected area; 01:40 Follow up: Response: No adverse reaction; Marked relief of symptoms pf1 Medication: 01:00 VIS not applicable for this client. pf1 Outcome: 00:29 Discharge ordered by . cp 01:59 Discharged to home ambulatory. pf1 01:59 Condition: improved 01:59 Discharge instructions given to patient, Instructed on discharge instructions, follow up and referral plans. Demonstrated understanding of instructions, follow-up care, Prescriptions given X 1. 02:01 Patient left the ED. pf1 Signatures: Seamus Dale PA PA cp Garcia, Cindy, RN RN Lyly Nesbitt Pamala, RN RN pf1
--- NOTE | 2022-12-04 00:30 | EDPHYS ---
Physician Documentation [facility] Name: Yazmin Monzon Age: 47 yrs Sex: Female : 1975 Arrival Date: 12/03/2022 Time: 22:53 Bed 29 Private MD: ED Physician Tato Box HPI: 12/03 23:50 This 47 yrs old Female presents to ER via Ambulatory with complaints of Back Injury. cp 23:50 The patient presents with pain that is acute. ms3 23:50 The symptoms are located in the low back. cp 23:50 Onset: The symptoms/episode began/occurred 4 day(s) ago. The pain does not radiate. cp Associated signs and symptoms: Pertinent negatives: abdominal pain, chest pain, fever, hematuria, incontinence, numbness, urinary retention, weakness. The problem was sustained during a fall, on slippery surface at work. Patient returns to ED after being seen 4 days ago with c/o continued low back pain sustained from fall at work. Review of records show patient had CT lumbar spine to r/o fracture that was negative. Patient reports she worked today and has had increasing low back pain. Denies sustaining any new injuries. Patient denies bowel and/or bladder incontinence, denies saddle anesthesia. 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 - Social history:: Smoking status: Patient denies any tobacco usage or history of. Patient uses alcohol, but reports only rare drinking. ROS: 23:55 Constitutional: Negative for body aches, chills, fever, poor PO intake. cp 23:55 Eyes: Negative for injury, pain, redness, and discharge. cp 23:55 ENT: Negative for drainage from ear(s), ear pain, sore throat, difficulty swallowing, difficulty handling secretions. 23:55 Cardiovascular: Negative for chest pain, edema, palpitations. 23:55 Respiratory: Negative for cough, shortness of breath, wheezing. 23:55 Abdomen/GI: Negative for abdominal pain, nausea, vomiting, and diarrhea, constipation, bowel incontinence. 23:55 Back: Positive for pain at rest, pain with movement, of the lumbar area. 23:55 : Negative for urinary symptoms, hematuria, bladder incontinence. 23:55 Neuro: Negative for numbness, tingling, weakness. 23:55 All other systems are negative. Exam: 23:59 Head/Face: Normocephalic, atraumatic. cp 23:59 Constitutional: The patient appears in no acute distress, alert, awake, non-toxic, well developed, well nourished, uncomfortable. 23:59 Eyes: Periorbital structures: appear normal, Conjunctiva: normal, no exudate, no injection, Sclera: no appreciated abnormality, Lids and lashes: appear normal, bilaterally. 23:59 ENT: External ear(s): are unremarkable, Nose: is normal, Mouth: Lips: moist, Oral mucosa: pink and intact, moist. 23:59 Neck: ROM/movement: is normal, is supple, without pain, no range of motions limitations. 23:59 Chest/axilla: Inspection: normal. 23:59 Cardiovascular: Rate: normal. 23:59 Respiratory: the patient does not display signs of respiratory distress, Respirations: normal, no use of accessory muscles, no retractions, labored breathing, is not present, Breath sounds: are clear throughout, no decreased breath sounds, no stridor, no wheezing. 23:59 Abdomen/GI: Inspection: abdomen appears normal, Palpation: abdomen is soft and non-tender, in all quadrants. 23:59 Back: pain, that is moderate, of the lumbar area, ROM is painful, with all movement. 23:59 Neuro: Motor: moves all fours, strength is normal, Sensation: is normal, Gait: is steady, Deep tendon reflexes are 2+ (normal) in the right patellar, right Achilles, left patellar and left Achilles. Vital Signs: 23:51 BP 149 / 86; Pulse 70; Resp 17 S; Temp 98.3(TE); Pulse Ox 100% on R/A; Weight 86.18 kg pf1 (R); Height 5 ft. 10 in. (R); 12/04 01:47 BP 156 / 78; Pulse 55; Resp 14; Temp 97.9; Pulse Ox 100% ; cg 12/03 23:51 Body Mass Index 27.26 (86.18 kg, 177.8 cm) pf1 MDM: 12/03 23:58 Patient medically screened. cp 12/04 00:00 Differential diagnosis: ruptured disc, strain, spinal stenosis, cauda equina, fracture. cp 00:27 Data reviewed: vital signs, nurses notes. cp 00:27 Consideration of Admission/Observation Escalation of care including cp admission/observation considered. I considered the following discharge prescriptions or medication management in the emergency department Medications were administered in the Emergency Department. See MAR. Counseling: I had a detailed discussion with the patient and/or guardian regarding: the historical points, exam findings, and any diagnostic results supporting the discharge/admit diagnosis, the need for outpatient follow up, a family practitioner, to return to the emergency department if symptoms worsen or persist or if there are any questions or concerns that arise at home. Response to treatment: the patient's symptoms have markedly improved after treatment, and as a result, I will discharge patient. Administered Medications: 00:44 Drug: Dexamethasone IM 10 mg Route: IM; Site: left deltoid; cg 01:40 Follow up: Response: No adverse reaction; Marked relief of symptoms pf1 00:45 Drug: Ketorolac IM 30 mg Route: IM; Site: left gluteus; cg 01:40 Follow up: Response: No adverse reaction; Marked relief of symptoms pf1 00:45 Drug: morphine IM 4 mg Route: IM; Site: right gluteus; cg 01:40 Follow up: Response: No adverse reaction; Marked relief of symptoms pf1 00:48 Drug: Lidoderm Topical Patch 5 % (700 mg/patch) 1 patches Route: Topical; Site: cg affected area; 01:40 Follow up: Response: No adverse reaction; Marked relief of symptoms pf1 Disposition: 00:27 Co-signature as Attending Physician, Tato Box DO I was immediately available on-site ms3 in the Emergency Department for consultation in the care of the patient. Disposition Summary: 12/04/22 00:29 Discharge Ordered Location: Home cp Problem: new cp Symptoms: have improved cp Condition: Stable cp Diagnosis - Low back pain cp Followup: cp - With: Private Physician - When: 2 - 3 days - Reason: Recheck today's complaints Discharge Instructions: - Discharge Summary Sheet cp - Acute Back Pain, Adult cp - Heat Therapy cp - Back Exercises cp Forms: - Medication Reconciliation Form cp - Thank You Letter cp - Antibiotic Education cp - Prescription Opioid Use cp Prescriptions: - Lidoderm 5 % Topical adhesive patch, medicated - apply 1 patch by TOPICAL route once leave on most painful area for up to 12 cp hrs; 10 patch; Refills: 0, Product Selection Permitted - Medrol (Percy) 4 mg Oral Tablets, Dose Pack - take 1 tablet by ORAL route as directed - follow package instructions; 1 cp packet; Refills: 0, Product Selection Permitted Signatures: Seamus Dale PA PA cp Garcia, Cindy, RN RN Tato Cabral DO DO ms3 Юлия Chavira RN RN pf1 Corrections: (The following items were deleted from the chart) 00:27 12/03 23:50 The patient presents with pain that is acute, cp ms3 12/05 00:12/04 23:59 Constitutional: The patient appears in no acute distress, alert, awake, cp non-toxic, well developed, well nourished, uncomfortable, cp 12/05 00:12/04 23:59 Head/Face: Normocephalic, atraumatic. cp cp 12/05 00:12/04 23:59 Eyes: Periorbital structures: appear normal, Conjunctiva: normal, no cp exudate, no injection, Sclera: no appreciated abnormality, Lids and lashes: appear normal, bilaterally, cp 12/05 00:12/04 23:59 ENT: External ear(s): are unremarkable, Nose: is normal, Mouth: Lips: cp moist, Oral mucosa: pink and intact, moist, cp 12/05 00:12/04 23:59 Neck: ROM/movement: is normal, is supple, without pain, no range of motions cp limitations, cp 12/05 00:12/04 23:59 Chest/axilla: Inspection: normal, cp cp 12/05 00:12/04 23:59 Cardiovascular: Rate: normal, cp cp 12/05 00:12/04 23:59 Respiratory: the patient does not display signs of respiratory distress, cp Respirations: normal, no use of accessory muscles, no retractions, labored breathing, is not present, Breath sounds: are clear throughout, no decreased breath sounds, no stridor, no wheezing, cp 12/05 00:12/04 23:59 Abdomen/GI: Inspection: abdomen appears normal, Palpation: abdomen is soft cp and non-tender, in all quadrants, cp 12/05 00:12/04 23:59 Back: pain, that is moderate, of the lumbar area, ROM is painful, with all cp movement, cp 12/05 00:12/04 23:59 Neuro: Motor: moves all fours, strength is normal, Sensation: is normal, cp Gait: is steady, Deep tendon reflexes are 2+ (normal) in the right patellar, right Achilles, left patellar and left Achilles, cp
[2022-12-04] MEDS ORDERED: KETOROLAC 30 MG/ML INJ ONE (00:42)
[2022-12-04] MEDS ORDERED: dexAMETHasone 10 MG/ML VIAL ONE (00:42)
[2022-12-04] MEDS ORDERED: MORPHINE 4 MG/ML SYR ONE (00:42)
[2022-12-04] MEDS ORDERED: LIDOCAINE 4% PATCH ONE (00:55)
[2022-12-04 02:12] VITALS: BP 156/78; TEMP 97.9; O2SAT 100
== END 2022-12-04 02:01 | disposition home or self-care (01) ==
LOC: ER 22:53
DX: M54.50 Low back pain, unspecified (principal); I10 Essential (primary) hypertension; Z88.0 Allergy status to penicillin
CPT/HCPCS: 96372; 99284; J2001; J1100

== ENCOUNTER 2022-12-21 08:09 | Emergency (ER) | payer OTHER ==
--- OUTSIDE RECORDS SUMMARY | 2022-12-21 08:12 | XMS REPORT | Continuity of Care Document ---
:1975 Author Organization [facility] t Address [address] [place] [address] [place] [address] Care Team Providers Name Role Phone DOCTOR [...] brendan INS Class 8-29 ity of 00:00: [address] Medications This patient has no known medications. Procedures This patient has no known procedures. Encounters Start End Encounter Admission Attending Care Care Encounter Source Date/Time Date/Time Type Type Clinicians Facility Department ID 2021-05-10 Emergency [facility] [id number] Univers 17:39:57 ity of [facility] 2021-05-10 Emergency [facility] [id number] Univers 17:39:53 ity of [facility] 2008-02-12 Inpatient P DOCTOR [facility] [id number] Univers 00:00:00 UNASSIGNED, 7 ity of NO [facility] 2020-11-13 2020-11-13 Emergency , [facility] [id number] 21:32:00 22:27:00 Rajan Lindquist [id number] [place] [id number] [place] [id number] 2020-11-13 2020-11-13 Emergency Iam, [facility] [id number] 20:58:00 21:22:00 Cassidy Lindquist [id number] [place] [id number] [place] [id number] 2018-10-25 2018-10-25 Emergency X GIUSEPPE, [facility] ERT [id number] Univers 16:23:34 19:15:00 REN ity [facility] 2008-01-20 2008-01-23 Inpatient ANA SHEFFIELD [facility] [id number] Univers 18:38:00 17:09:00 ANA LEMUS 5 i ty [facility] 2007-12-29 2007-12-29 Outpatient [facility] [id number] Univers 00:00:00 10:35:40 2 ity [facility] 2007-11-14 2007-11-14 Outpatient P KEARA COLON [facility] [id number] Univers 09:47:00 23:59:00 9 ity [facility] 2007-08-21 2007-08-21 Outpatient [facility] [id number] Univers 00:00:00 16:24:31 4 ity [facility] 2007-08-21 2007-08-21 Outpatient [facility] [id number] Univers 00:00:00 15:13:21 6 ity [facility] 2007-06-30 2007-06-30 Outpatient [facility] [id number] Univers 00:00:00 09:31:22 8 ity [facility] 2007-06-12 2007-06-12 Outpatient [facility] [id number] Univers 00:00:00 10:23:12 3 ity [facility] 2006-11-17 2006-11-17 Outpatient [facility] [id number] Univers 00:00:00 11:46:32 2 ity [facility] 2006-10-19 2006-10-19 Outpatient [facility] [id number] Univers 00:00:00 13:53:51 7 ity [facility] 2006-10-10 2006-10-10 Outpatient [facility] [id number] Univers 00:00:00 14:07:32 8 [facility] Results This patient has no known results.
[2022-12-21] MEDS ORDERED: KETOROLAC 30 MG/ML INJ ONE (08:38)
--- NOTE | 2022-12-21 09:14 | RAD REPORT ---
EXAM DESCRIPTION: RAD - Lumbar Spine 3 Views - 12/21/2022 9:07 am CLINICAL HISTORY: low back pain COMPARISON: Spine Lumbar Wo Con dated 11/29/2022 FINDINGS/IMPRESSION: No acute fracture. Slight thoracolumbar curvature. Moderate disc height loss at L1-2 and L5-S1 . Mild disc height loss at the other levels.
--- NOTE | 2022-12-21 09:34 | EDPHYS ---
Physician Documentation [facility] Name: Yazmin Monzon Age: 47 yrs Sex: Female : 1975 Arrival Date: 12/21/2022 Time: 08:09 Bed 11 Private MD: ED Physician Tato Box HPI: 12/21 08:15 This 47 yrs old Female presents to ER via Ambulatory with complaints of Back Pain. jmm 08:15 The patient presents with pain that is acute. The symptoms are located in the low back. jmm Onset: The symptoms/episode began/occurred at an unknown time. This is a 47/f with a history of chronic back pain, endometriosis, htn that presents to the ED with complaints of ongoing lower back pain, which radiates up the right side. Denies known injury but states her work includes strenuous activity. . Historical: - Allergies: 08:15 PENICILLINS; cm10 - PMHx: 08:15 Back pain; Endometrosis; Hypertensive disorder; cm10 - PSHx: 08:15 tubal ligation; cm10 - Immunization history:: Adult Immunizations unknown. - Social history:: Smoking status: Patient denies any tobacco usage or history of. ROS: 08:15 Constitutional: Negative for fever, chills, and weight loss, Cardiovascular: Negative jmm for chest pain, palpitations, and edema, Respiratory: Negative for shortness of breath, cough, wheezing, and pleuritic chest pain. 08:15 Back: Positive for pain with movement. 08:15 All other systems are negative. Exam: 08:15 Constitutional: This is a well developed, well nourished patient who is awake, alert, jmm and in no acute distress. Head/Face: atraumatic. Eyes: EOMI, no conjunctival erythema appreciated ENT: Moist Mucus Membranes Neck: Trachea midline, Supple Chest/axilla: Normal chest wall appearance and motion. Cardiovascular: Regular rate and rhythm. No edema appreciated Respiratory: Normal respirations, no respiratory distress appreciated Abdomen/GI: Non distended 08:15 Skin: General appearance color normal MS/ Extremity: Moves all extremities, no obvious deformities appreciated, no edema noted to the lower extremities Neuro: Awake and alert Psych: Behavior is normal, Mood is normal, Patient is cooperative and pleasant 08:15 Back: pain, that is mild, of the right mid back and right low back. Vital Signs: 08:13 BP 171 / 99; Pulse 89; Resp 18; Temp 98.4; Pulse Ox 100% on R/A; Weight 86.18 kg; cm10 Height 5 ft. 10 in. ; 09:19 Pain 7/10; cm10 08:13 Body Mass Index 27.26 (86.18 kg, 177.8 cm) cm10 09:19 Pain Scale: Adult cm10 MDM: 08:15 Patient medically screened. [facility] 11:34 Differential diagnosis: strain, muscle spasm, lumbar fracture. Data reviewed: vital [facility] signs, nurses notes, radiologic studies, plain films. I considered the following discharge prescriptions or medication management in the emergency department Medications were administered in the Emergency Department. See MAR. Independent interpretation of the following test(s) in the Emergency Department X-Ray: My interpretation is No fracture appreciated. Counseling: I had a detailed discussion with the patient and/or guardian regarding: the historical points, exam findings, and any diagnostic results supporting the discharge/admit diagnosis, radiology results, the need for outpatient follow up, to return to the emergency department if symptoms worsen or persist or if there are any questions or concerns that arise at home. 12/21 08:16 Order name: Lumbar Spine (3 Views) XRAY; Complete Time: 09:18 [facility] Administered Medications: 08:35 Drug: Ketorolac IM 30 mg Route: IM; Site: left vastus lateralis; ph 09:19 Follow up: Pain 7/10 Adult; Response: No adverse reaction; Pain is decreased cm10 Disposition: 11:46 Co-signature as Attending Physician, Tato Box DO I was immediately available on-site ms3 in the Emergency Department for consultation in the care of the patient. Disposition Summary: 12/21/22 09:33 Discharge Ordered Location: Home [facility] Condition: Stable [facility] Diagnosis - Strain of muscle, fascia and tendon of abdomen, lower back and pelvis jmm - Strain of muscle and tendon of back wall of thorax [facility] Followup: [facility] - With: Private Physician - When: 2 - 3 days - Reason: Recheck today's complaints, Continuance of care, Re-evaluation by your physician Discharge Instructions: - Discharge Summary Sheet [facility] - Thoracic Strain [facility] Forms: - Work release form jmm - Medication Reconciliation Form [facility] - Thank You Letter jmm - Antibiotic Education jmm - Prescription Opioid Use [facility] Prescriptions: - Zanaflex 4 mg Oral Tablet - take 1 tablet by ORAL route every 8 hours As needed; 20 tablet; Refills: 0, jmm Product Selection Permitted Signatures: Dispatcher [employer] Ricardo Justice PA PA jmm Hall, Patricia, RN RN Tato Box DO DO ms3 Lindsay Meraz RN RN cm10
--- NOTE | 2022-12-21 09:34 | ER ---
Nurse's Notes [facility] Name: Yazmin Monzon Age: 47 yrs Sex: Female : 1975 Arrival Date: 12/21/2022 Time: 08:09 Bed 11 Private MD: Diagnosis: Strain of muscle, fascia and tendon of abdomen, lower back and pelvis;Strain of muscle and tendon of back wall of thorax Presentation: 12/21 08:13 Chief complaint: Patient states: Lower back pain, worse when taking deep breath or cm10 stepping on R foot, started 2 days ago, previous back injury at work. Ebola Screen: No symptoms or risks identified at this time. Initial Sepsis Screen: Does the patient meet any 2 criteria? No. Patient's initial sepsis screen is negative. Does the patient have a suspected source of infection? No. Patient's initial sepsis screen is negative. Risk Assessment: Do you want to hurt yourself or someone else? Patient reports no desire to harm self or others. Onset of symptoms was December 21, 2022. 08:13 Method Of Arrival: Ambulatory 10 08:13 Acuity: GEORGETTE 4 cm10 09:17 Coronavirus screen: Client denies travel out of the [place] in the last 14 days. cm10 Triage Assessment: 08:30 General: Appears in no apparent distress. uncomfortable, well groomed, Behavior is ph calm, cooperative, appropriate for age. Pain: Complains of pain in low back area Pain radiates to right leg. Neuro: Level of Consciousness is awake, alert, obeys commands, Oriented to person, place, time, situation. Cardiovascular: Capillary refill < 3 seconds in bilateral fingers Patient's skin is warm and dry. Respiratory: Airway is compromised Respiratory effort is even, unlabored, Respiratory pattern is regular, symmetrical. Musculoskeletal: Circulation, motion, and sensation intact. Range of motion: intact in all extremities, Reports pain in low back area. Historical: - Allergies: 08:15 PENICILLINS; cm10 - PMHx: 08:15 Back pain; Endometrosis; Hypertensive disorder; cm10 - PSHx: 08:15 tubal ligation; cm10 - Immunization history:: Adult Immunizations unknown. - Social history:: Smoking status: Patient denies any tobacco usage or history of. Screenin:30 [facility] ED Fall Risk Assessment (Adult) History of falling in the last 3 months, ph including since admission No falls in past 3 months (0 pts) Confusion or Disorientation No (0 pts) Intoxicated or Sedated No (0 pts) Impaired Gait No (0 pts) Mobility Assist Device Used No (0 pt) Altered Elimination No (0 pt) Score/Fall Risk Level 0 - 2 = Low Risk Oriented to surroundings, Maintained a safe environment, Hourly rounding (assess needs \T\ fall precautionary measures) done. Abuse screen: Denies threats or abuse. Denies injuries from another. Nutritional screening: No deficits noted. Tuberculosis screening: No symptoms or risk factors identified. Assessment: 09:20 Reassessment: Patient is alert, oriented x 3, equal unlabored respirations, skin cm10 warm/dry/pink. Patient states feeling better. Patient states symptoms have improved. Pain: Complains of pain in back Pain currently is 7 out of 10 on a pain scale. Quality of pain is described as dull, Current management is with. Vital Signs: 08:13 BP 171 / 99; Pulse 89; Resp 18; Temp 98.4; Pulse Ox 100% on R/A; Weight 86.18 kg; cm10 Height 5 ft. 10 in. ; 09:19 Pain 7/10; cm10 08:13 Body Mass Index 27.26 (86.18 kg, 177.8 cm) cm10 09:19 Pain Scale: Adult cm10 ED Course: 08:10 Patient arrived in ED. rg4 08:12 Ricardo Leahy PA is PHCP. jmm 08:12 Tato Box DO is Attending Physician. jmm 08:15 Triage completed. cm10 08:15 Arm band placed on. cm10 08:29 Lindsey Azevedo, RN is Primary Nurse. ph 08:30 Patient has correct armband on for positive identification. Bed in low position. Call ph light in reach. Side rails up X 1. Pulse ox on. NIBP on. Door closed. Noise minimized. 09:09 Lumbar Spine (3 Views) XRAY In Process Unspecified. EDMS 09:42 No provider procedures requiring assistance completed. Patient did not have IV access ph during this emergency room visit. Administered Medications: 08:35 Drug: Ketorolac IM 30 mg Route: IM; Site: left vastus lateralis; ph 09:19 Follow up: Pain 7/10 Adult; Response: No adverse reaction; Pain is decreased cm10 Medication: 08:30 VIS not applicable for this client. ph Outcome: 09:33 Discharge ordered by . regi 09:42 Discharged to home ambulatory. ph 09:42 Condition: good 09:42 Discharge instructions given to patient, Instructed on discharge instructions, follow up and referral plans. medication usage, Demonstrated understanding of instructions, follow-up care, medications, Prescriptions given X 1. 09:42 Patient left the ED. ph Signatures: Dispatcher [employer] EDMS Ricardo Leahy PA PA jmm Hall, Patricia, RN RN ph Mallika Mcgregor4 Lindsay Meraz RN RN cm10
[2022-12-21 09:46] VITALS: BP 171/99; TEMP 98.4; O2SAT 100
== END 2022-12-21 09:42 | disposition home or self-care (01) ==
LOC: ER 08:09
DX: S39.012A Strain of muscle, fascia and tendon of lower back, initial encounter (principal); S39.013A Strain of muscle, fascia and tendon of pelvis, initial encounter; Z88.0 Allergy status to penicillin
CPT/HCPCS: 72100; 96372; 99284

== ENCOUNTER 2023-03-02 19:04 | Emergency (ER) | payer OTHER ==
--- OUTSIDE RECORDS SUMMARY | 2023-03-02 19:07 | XMS REPORT | Continuity of Care Document ---
:1975 Author Organization [facility] t Address [address] [place] [address] [place] [id number] Care Team Providers Name Role Phone DOCTOR [...] brendan INS Class 8-29 ity of 00:00: [address] Medications This patient has no known medications. Procedures This patient has no known procedures. Encounters Start End Encounter Admission Attending Care Care Encounter Source Date/Time Date/Time Type Type Clinicians Facility Department ID 2021-05-10 Emergency [facility] [id number] Univers 17:39:57 ity of [facility] 2021-05-10 Emergency [facility] [id number] Univers 17:39:53 ity of [facility] 2008-02-12 Inpatient P DOCTOR [facility] [id number] Univers 00:00:00 UNASSIGNED, 7 ity of NO [facility] 2020-11-13 2020-11-13 Emergency , [facility] [id number] 21:32:00 22:27:00 Rajan Lindquist [id number] [place] [id number] [place] [id number] 2020-11-13 2020-11-13 Emergency Iam, [facility] [id number] 20:58:00 21:22:00 Cassidy Lindquist [id number] [place] [id number] [place] [id number] 2018-10-25 2018-10-25 Emergency X GIUSEPPE, [facility] ERT [id number] Univers 16:23:34 19:15:00 REN ity [facility] 2008-01-20 2008-01-23 Inpatient ANA SHEFFIELD [facility] [id number] Univers 18:38:00 17:09:00 ANA LEMUS 5 i ty [facility] 2007-12-29 2007-12-29 Outpatient [facility] [id number] Univers 00:00:00 10:35:40 2 ity [facility] 2007-11-14 2007-11-14 Outpatient P KEARA COLON [facility] [id number] Univers 09:47:00 23:59:00 9 ity [facility] 2007-08-21 2007-08-21 Outpatient [facility] [id number] Univers 00:00:00 16:24:31 4 ity [facility] 2007-08-21 2007-08-21 Outpatient [facility] [id number] Univers 00:00:00 15:13:21 6 ity [facility] 2007-06-30 2007-06-30 Outpatient [facility] [id number] Univers 00:00:00 09:31:22 8 ity [facility] 2007-06-12 2007-06-12 Outpatient [facility] [id number] Univers 00:00:00 10:23:12 3 ity [facility] 2006-11-17 2006-11-17 Outpatient [facility] [id number] Univers 00:00:00 11:46:32 2 ity [facility] 2006-10-19 2006-10-19 Outpatient [facility] [id number] Univers 00:00:00 13:53:51 7 ity [facility] 2006-10-10 2006-10-10 Outpatient [facility] [id number] Univers 00:00:00 14:07:32 8 [facility] Results This patient has no known results.
--- NOTE | 2023-03-02 19:17 | ER ---
Nurse's Notes [facility] Name: Yazmin Monzon Age: 48 yrs Sex: Female : 1975 Arrival Date: 03/02/2023 Time: 19:04 Bed IW3 Private MD: Diagnosis: Low back pain Presentation: 03/02 19:10 Chief complaint: Patient states: Right side back pain that radiates to r shoulder blade nj1 since tuesday. Has prior injury. Was working at [employer]. Took a [employer] today with no relief. Coronavirus screen: Vaccine status: Patient reports being unvaccinated. Ebola Screen: Patient denies travel to an Ebola-affected area in the 21 days before illness onset. Initial Sepsis Screen: Does the patient meet any 2 criteria? HR > 90 bpm. No. Patient's initial sepsis screen is negative. Does the patient have a suspected source of infection? No. Patient's initial sepsis screen is negative. Risk Assessment: Do you want to hurt yourself or someone else? Patient reports no desire to harm self or others. Onset of symptoms was February 28, 2023. 19:10 Method Of Arrival: Ambulatory [facility] 19:10 Acuity: GEORGETTE 3 nj1 Triage Assessment: 19:20 General: Appears in no apparent distress. uncomfortable, Behavior is calm, cooperative, nj1 appropriate for age. 19:20 Pain: Complains of pain in back Pain currently is 7 out of 10 on a pain scale. Neuro: nj1 Level of Consciousness is awake, alert, obeys commands, Oriented to person, place, time, situation. Cardiovascular: Patient's skin is warm and dry. Respiratory: Airway is patent Respiratory effort is even, unlabored. Musculoskeletal: none Reports pain in back. Historical: - Allergies: 19:14 PENICILLINS; nj1 - PMHx: 19:14 Back pain; Endometrosis; Hypertensive disorder; nj1 - PSHx: 19:14 tubal ligation; nj1 - Immunization history:: Client reports having NOT received the Covid vaccine. - Social history:: Smoking status: Patient denies any tobacco usage or history of. Screenin:44 [facility] ED Fall Risk Assessment (Adult) Score/Fall Risk Level 0 - 2 = Low Risk nj1 Oriented to surroundings, Maintained a safe environment, Hourly rounding (assess needs \T\ fall precautionary measures) done. Abuse screen: Denies threats or abuse. Denies injuries from another. Nutritional screening: No deficits noted. Tuberculosis screening: No symptoms or risk factors identified. Vital Signs: 19:10 BP 139 / 87; Pulse 101; Resp 18; Temp 98.2(TE); Pulse Ox 100% ; Weight 81.65 kg; Height nj1 5 ft. 10 in. ; Pain 7/10; 19:10 Body Mass Index 25.83 (81.65 kg, 177.8 cm) nj1 19:10 Pain Scale: Adult nj1 ED Course: 19:07 Patient arrived in ED. ag3 19:12 Shi [facility]C [facility] kb 19:12 Seamus Salmon MD is Attending Physician. kb 19:14 Triage completed. nj1 19:16 Arm band placed on right wrist. nj1 19:44 Patient has correct armband on for positive identification. Provided Education on: wi1 Prescribed medications. 19:44 No provider procedures requiring assistance completed. Patient did not have IV access nj1 during this emergency room visit. Administered Medications: 19:40 Drug: Ketorolac IM 30 mg Route: IM; Site: right gluteus; nj1 19:45 Follow up: Response: No adverse reaction nj1 19:40 Drug: Dexamethasone IM 10 mg Route: IM; Site: left gluteus; nj1 19:45 Follow up: Response: No adverse reaction nj1 Medication: 19:44 VIS not applicable for this client. nj1 Outcome: 19:16 Discharge ordered by MD. kb 19:45 Discharged to home ambulatory. nj1 19:45 Condition: stable 19:45 Discharge instructions given to patient, Instructed on discharge instructions, follow up and referral plans. medication usage, Demonstrated understanding of instructions, follow-up care, medications, Prescriptions given X 3. 19:45 Patient left the ED. nj1 Signatures: Shi Van FNP-C FNP-Frances Casarez 3 Emmanuelle Zeng RN RN nj1 Corrections: (The following items were deleted from the chart) 19:44 19:42 General: Appears in no apparent distress. uncomfortable, Behavior is calm, nj1 cooperative, appropriate for age, nj1
--- NOTE | 2023-03-02 19:17 | EDPHYS ---
Physician Documentation [facility] Name: Yazmin Monzon Age: 48 yrs Sex: Female : 1975 Arrival Date: 03/02/2023 Time: 19:04 Bed IW3 Private MD: ED Physician Seamus Salmon HPI: 03/02 19:31 This 48 yrs old Female presents to ER via Ambulatory with complaints of Back Pain. kb 19:31 The patient has not experienced similar symptoms in the past. The patient has not kb recently seen a physician. 21:43 The patient presents with pain that is acute. The symptoms are located in the right low kb back. The pain radiates to the right subscapular area, to the right leg. The problem was sustained when lifting. Onset: The symptoms/episode began/occurred 3 day(s) ago. Modifying factors: The patient symptoms are alleviated by nothing, the patient symptoms are aggravated by any movement. Associated signs and symptoms: The patient has no apparent associated signs or symptoms. Severity of symptoms: At their worst the symptoms were moderate, in the emergency department the symptoms are unchanged. Pt reports pain to right low back that radiates to right scapula and right leg. States it started 3 days ago [facility] [employer] Historical: - Allergies: 19:14 PENICILLINS; nj1 - PMHx: 19:14 Back pain; Endometrosis; Hypertensive disorder; nj1 - PSHx: 19:14 tubal ligation; nj1 - Immunization history:: Client reports having NOT received the Covid vaccine. - Social history:: Smoking status: Patient denies any tobacco usage or history of. ROS: 21:43 Constitutional: Negative for fever, chills, and weight loss. kb 21:43 Back: Positive for pain at rest, pain with movement. 21:43 All other systems are negative. Exam: 21:43 Constitutional: This is a well developed, well nourished patient who is awake, alert, kb and in no acute distress. Head/Face: Normocephalic, atraumatic. ENT: Moist Mucous membranes Cardiovascular: Regular rate and rhythm with a normal S1 and S2. No gallops, murmurs, or rubs. No pulse deficits. Respiratory: Respirations even and unlabored. No increased work of breathing. Talking in full sentences Abdomen/GI: Soft, non-tender. No distention Skin: Warm, dry with normal turgor. Normal color. MS/ Extremity: Pulses equal, no cyanosis. Neurovascular intact. Full, normal range of motion. Neuro: Awake and alert, GCS 15, oriented to person, place, time, and situation. Moves all extremities. Normal gait. 21:43 Back: pain, that is moderate, of the right scapular area and right low back, ROM is painful, normal spinal alignment noted, CVA tenderness, is absent, vertebral tenderness, is not appreciated. Vital Signs: 19:10 BP 139 / 87; Pulse 101; Resp 18; Temp 98.2(TE); Pulse Ox 100% ; Weight 81.65 kg; Height nj1 5 ft. 10 in. ; Pain 7/10; 19:10 Body Mass Index 25.83 (81.65 kg, 177.8 cm) nj1 19:10 Pain Scale: Adult nj1 MDM: 19:12 Patient medically screened. kb 21:45 Differential diagnosis: strain, fracture, sciatica, Herniated disc. Data reviewed: kb vital signs, nurses notes. Test considered but Not performed: X-ray: x-ray considered, but pt has no bony tenderness. Counseling: I had a detailed discussion with the patient and/or guardian regarding the historical points, exam findings, and any diagnostic results supporting the discharge/admit diagnosis, the need for outpatient follow up, a family practitioner, to return to the emergency department if symptoms worsen or persist or if there are any questions or concerns that arise at home. Administered Medications: 19:40 Drug: Ketorolac IM 30 mg Route: IM; Site: right gluteus; nj1 19:45 Follow up: Response: No adverse reaction nj1 19:40 Drug: Dexamethasone IM 10 mg Route: IM; Site: left gluteus; nj1 19:45 Follow up: Response: No adverse reaction nj1 Disposition Summary: 03/02/23 19:16 Discharge Ordered Location: Home Condition: Stable kb Diagnosis - Low back pain kb Followup: kb - With: Emergency Department - When: As needed - Reason: Worsening of condition Followup: kb - With: Private Physician - When: 2 - 3 days - Reason: Recheck today's complaints, Continuance of care, Re-evaluation by your physician Discharge Instructions: - Discharge Summary Sheet kb - Acute Back Pain, Adult kb - Musculoskeletal Pain kb Forms: - Work release form kb - Medication Reconciliation Form kb - Thank You Letter kb - Antibiotic Education kb - Prescription Opioid Use kb - Patient Portal Instructions kb - Leadership Thank You Letter kb Prescriptions: - Ibuprofen 800 mg Oral Tablet - take 1 tablet by ORAL route every 8 hours As needed take with food; 30 tablet; kb Refills: 0, Product Selection Permitted - Prednisone 20 mg Oral Tablet - take 1 tablet by ORAL route once daily for 5 days; 5 tablet; Refills: 0, kb Product Selection Permitted - orphenadrine citrate 100 mg Oral Tablet Sustained Release - take 1 tablet by ORAL route 2 times per day As needed; 20 tablet; Refills: 0, kb Product Selection Permitted Signatures: Shi Van, BETSY-C [employer]-Emmanuelle Nichols RN RN nj1 Corrections: (The following items were deleted from the chart) 21:45 21:43 Back: pain, that is moderate, of the right scapular area and right low back, ROM kb is painful, normal spinal alignment noted, kb
[2023-03-02] MEDS ORDERED: dexAMETHasone 10 MG/ML VIAL ONE (19:46)
[2023-03-02] MEDS ORDERED: KETOROLAC 30 MG/ML INJ ONE (19:46)
[2023-03-02 20:19] VITALS: BP 139/87; TEMP 98.2; O2SAT 100
== END 2023-03-02 19:45 | disposition home or self-care (01) ==
LOC: ER 19:04
DX: M54.50 Low back pain, unspecified (principal); Z88.0 Allergy status to penicillin
CPT/HCPCS: J1100

== ENCOUNTER 2023-03-22 07:02 | Emergency (ER) | payer OTHER ==
--- OUTSIDE RECORDS SUMMARY | 2023-03-22 07:04 | XMS REPORT | Continuity of Care Document ---
:1975 Author Organization [facility] t Address [address] [place] [address] [place] [id number] Care Team Providers Name Role Phone DOCTOR [...] brendan INS Class 8-29 ity of 00:00: [address] Medications This patient has no known medications. Procedures This patient has no known procedures. Encounters Start End Encounter Admission Attending Care Care Encounter Source Date/Time Date/Time Type Type Clinicians Facility Department ID 2021-05-10 Emergency [facility] [id number] Univers 17:39:57 ity of [facility] 2021-05-10 Emergency [facility] [id number] Univers 17:39:53 ity of [facility] 2008-02-12 Inpatient P DOCTOR [facility] [place] [id number] Univers 00:00:00 UNASSIGNED, 7 ity of NO [facility] 2020-11-13 2020-11-13 Emergency , [facility] [id number] 21:32:00 22:27:00 Rajan Lindquist [id number] [place] [id number] [place] [id number] 2020-11-13 2020-11-13 Emergency Iam, [facility] [id number] 20:58:00 21:22:00 Cassidy Lindquist [id number] [place] [id number] [place] [id number] 2018-10-25 2018-10-25 Emergency X GIUSEPPE, [facility] ERT [id number] Univers 16:23:34 19:15:00 REN ity [facility] 2008-01-20 2008-01-23 Inpatient ANA SHEFFIELD [facility] [place] [id number] Univers 18:38:00 17:09:00 ANA LEMUS 5 i ty [facility] 2007-12-29 2007-12-29 Outpatient [facility] [id number] Univers 00:00:00 10:35:40 2 ity [facility] 2007-11-14 2007-11-14 Outpatient P KEARA COLON [facility] [place] [id number] Univers 09:47:00 23:59:00 9 ity [facility] 2007-08-21 2007-08-21 Outpatient [facility] [id number] Univers 00:00:00 16:24:31 4 ity [facility] 2007-08-21 2007-08-21 Outpatient [facility] [id number] Univers 00:00:00 15:13:21 6 ity [facility] 2007-06-30 2007-06-30 Outpatient [facility] [id number] Univers 00:00:00 09:31:22 8 ity [facility] 2007-06-12 2007-06-12 Outpatient [facility] [id number] Univers 00:00:00 10:23:12 3 ity [facility] 2006-11-17 2006-11-17 Outpatient [facility] [id number] Univers 00:00:00 11:46:32 2 ity [facility] 2006-10-19 2006-10-19 Outpatient [facility] [id number] Univers 00:00:00 13:53:51 7 ity [facility] 2006-10-10 2006-10-10 Outpatient [facility] [id number] Univers 00:00:00 14:07:32 8 [facility] Results This patient has no known results.
--- NOTE | 2023-03-22 07:49 | EDPHYS ---
Physician Documentation [facility] Name: Yazmin Monzon Age: 48 yrs Sex: Female : 1975 Arrival Date: 03/22/2023 Time: 07:02 Bed 20 Private MD: ED Physician Shari Chester HPI: 03/22 07:45 This 48 yrs old Female presents to ER via Ambulatory with complaints of Ear Pain. sp3 07:45 48-year-old female with a history of hypertension, chronic back pain, prior left otitis sp3 media problem still presents to the ED with chief complaint left-sided ear pain for approximately 2 to 3 days. She states that loud sounds make it hurt worse and her hearing is a little muffled on that side. Mild headache also reported. No URI symptoms, sore throat, cough, chest pain, shortness of breath, back pain, neck pain, swelling, lymph node swelling, nausea, vomiting, diarrhea, fever, known sick contacts, travel history, or any other signs or symptoms on ROS noted at this time.. 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 - Social history:: Smoking status: Patient denies any tobacco usage or history of. ROS: 07:46 Constitutional: Negative for fever, chills, and weight loss, Eyes: Negative for injury, sp3 pain, redness, and discharge, Neck: Negative for injury, pain, and swelling, Cardiovascular: Negative for chest pain, palpitations, and edema, Respiratory: Negative for shortness of breath, cough, wheezing, and pleuritic chest pain, Abdomen/GI: Negative for abdominal pain, nausea, vomiting, diarrhea, and constipation, Back: Negative for injury and pain, MS/Extremity: Negative for injury and deformity, Skin: Negative for injury, rash, and discoloration, Neuro: Negative for headache, weakness, numbness, tingling, and seizure, Psych: Negative for depression, anxiety, suicide ideation, homicidal ideation, and hallucinations, Allergy/Immunology: Negative for hives, rash, and allergies, Endocrine: Negative for neck swelling, polydipsia, polyuria, polyphagia, and marked weight changes, Hematologic/Lymphatic: Negative for swollen nodes, abnormal bleeding, and unusual bruising. 07:46 All other systems are negative. Exam: 07:46 Constitutional: This is a well developed, well nourished patient who is awake, alert, sp3 and in no acute distress. Head/Face: Normocephalic, atraumatic. Eyes: Pupils equal round and reactive to light, extra-ocular motions intact. Lids and lashes normal. Conjunctiva and sclera are non-icteric and not injected. Cornea within normal limits. Periorbital areas with no swelling, redness, or edema. Neck: Trachea midline, no thyromegaly or masses palpated, and no cervical lymphadenopathy. Supple, full range of motion without nuchal rigidity, or vertebral point tenderness. No Meningismus. Chest/axilla: Normal chest wall appearance and motion. Nontender with no deformity. No lesions are appreciated. Cardiovascular: Regular rate and rhythm with a normal S1 and S2. No gallops, murmurs, or rubs. Normal PMI, no JVD. No pulse deficits. Respiratory: Lungs have equal breath sounds bilaterally, clear to auscultation and percussion. No rales, rhonchi or wheezes noted. No increased work of breathing, no retractions or nasal flaring. Abdomen/GI: Soft, non-tender, with normal bowel sounds. No distension or tympany. No guarding or rebound. No evidence of tenderness throughout. 07:46 ENT: Eyes are normal, throat is normal, left otitis media noted secondary to erythema of the TM and mild serous fluid behind it. External auditory canals normal. Right ear is normal.. Vital Signs: 07:15 BP 146 / 88; Pulse 88; Resp 17; Temp 97.6; Pulse Ox 100% ; Weight 79.38 kg; Height 5 7 ft. 10 in. ; Pain 7/10; 07:15 Body Mass Index 25.11 (79.38 kg, 177.8 cm) [facility] 07:15 Pain Scale: Adult [facility] MDM: 07:11 Patient medically screened. sp3 07:47 Data reviewed: vital signs, nurses notes. ED course: 48-year-old female with left sp3 otitis media. I am not highly suspicious for mastoiditis, otitis externa, meningitis, or other critical finding. I have educated patient on signs and symptoms of mastoiditis and she will return for any worsening headache. She is allergic to penicillin therefore we will place her on azithromycin Z-Percy p.o. for her diagnosis. She will follow-up with her PCP as needed.. Administered Medications: No medications were administered Disposition Summary: 03/22/23 07:48 Discharge Ordered Location: Home sp3 Condition: Stable sp3 Diagnosis - Acute serous otitis media, left ear sp3 Followup: sp3 - With: Private Physician - When: Upon discharge from the Emergency Department - Reason: Continuance of care Discharge Instructions: - Discharge Summary Sheet sp3 - Otitis Media, Adult sp3 Forms: - Medication Reconciliation Form sp3 - Thank You Letter sp3 - Antibiotic Education sp3 - Prescription Opioid Use sp3 - Patient Portal Instructions sp3 - Leadership Thank You Letter sp3 Prescriptions: - Zithromax Z-Percy 250 mg Oral Tablet - take 1 tablet by ORAL route as directed for 5 days Day 1 - take two (2) tablets sp3 one time. Day 2, 3, 4 , 5 take one (1) tablet once daily.; 6 tablet; Refills: 0, Product Selection Permitted Signatures: Bindu Bass RN RN jl7 Shari Chester MD MD sp3
--- NOTE | 2023-03-22 07:49 | ER ---
Nurse's Notes [facility] Name: Yazmin Monzon Age: 48 yrs Sex: Female : 1975 Arrival Date: 03/22/2023 Time: 07:02 Bed 20 Private MD: Diagnosis: Acute serous otitis media, left ear Presentation: 03/22 07:15 Chief complaint: Patient states: Left ear pain x 3 days. Coronavirus screen: At this jl7 time, the client does not indicate any symptoms associated with coronavirus-19. Ebola Screen: No symptoms or risks identified at this time. Initial Sepsis Screen: Does the patient meet any 2 criteria? No. Patient's initial sepsis screen is negative. Does the patient have a suspected source of infection? No. Patient's initial sepsis screen is negative. Risk Assessment: Do you want to hurt yourself or someone else? Patient reports no desire to harm self or others. Onset of symptoms was March 19, 2023. Care prior to arrival: None. 07:15 Method Of Arrival: Ambulatory [facility] 07:15 Acuity: GEORGETTE 4 jl7 Triage Assessment: 07:16 General: Appears in no apparent distress. uncomfortable, Behavior is calm, cooperative, jl7 appropriate for age. Pain: Complains of pain in left ear Pain currently is 3 out of 10 on a pain scale. EENT: Reports pain in left ear. 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 - Social history:: Smoking status: Patient denies any tobacco usage or history of. Screenin:18 [facility] ED Fall Risk Assessment (Adult) History of falling in the last 3 months, kc6 including since admission No falls in past 3 months (0 pts) Confusion or Disorientation No (0 pts) Intoxicated or Sedated No (0 pts) Impaired Gait No (0 pts) Mobility Assist Device Used No (0 pt) Altered Elimination No (0 pt) Score/Fall Risk Level 0 - 2 = Low Risk. Abuse screen: Denies threats or abuse. Denies injuries from another. Nutritional screening: No deficits noted. Tuberculosis screening: No symptoms or risk factors identified. Assessment: 07:23 General: Appears in no apparent distress. comfortable, Behavior is calm, cooperative, kc6 appropriate for age. Pain: Complains of pain in left ear Pain currently is 3 out of 10 on a pain scale. Neuro: Level of Consciousness is awake, alert, obeys commands, Oriented to person, place, time, situation, Appropriate for age. Cardiovascular: Capillary refill < 3 seconds. Respiratory: Airway is patent Trachea midline Respiratory effort is even, unlabored, Respiratory pattern is regular, symmetrical. GI: No signs and/or symptoms were reported involving the gastrointestinal system. : No signs and/or symptoms were reported regarding the genitourinary system. EENT: Reports pain in left ear. Derm: No signs and/or symptoms reported regarding the dermatologic system. Skin is intact, is healthy with good turgor, Skin is pink, warm \T\ dry. Musculoskeletal: No signs and/or symptoms reported regarding the musculoskeletal system. Circulation, motion, and sensation intact. Capillary refill < 3 seconds, Range of motion: intact in all extremities. Vital Signs: 07:15 BP 146 / 88; Pulse 88; Resp 17; Temp 97.6; Pulse Ox 100% ; Weight 79.38 kg; Height 5 jl7 ft. 10 in. ; Pain 7/10; 07:15 Body Mass Index 25.11 (79.38 kg, 177.8 cm) jl7 07:15 Pain Scale: Adult jl7 ED Course: 07:04 Patient arrived in ED. mg5 07:11 Shari Chester MD is Attending Physician. sp3 07:15 Yamile Collins, MARIBEL is Primary Nurse. kc6 07:16 Triage completed. jl7 07:16 Arm band placed on right wrist. jl7 07:18 Patient has correct armband on for positive identification. Bed in low position. Call kc6 light in reach. Side rails up X 1. Client placed on continuous cardiac and pulse oximetry monitoring. NIBP monitoring applied. 07:56 No provider procedures requiring assistance completed. Patient did not have IV access kc6 during this emergency room visit. Administered Medications: No medications were administered Medication: 07:56 VIS not applicable for this client. kc6 Outcome: 07:48 Discharge ordered by . tash 07:56 Discharged to home ambulatory. kc6 07:56 Condition: stable 07:56 Discharge instructions given to patient, Instructed on discharge instructions, follow up and referral plans. medication usage, Demonstrated understanding of instructions, follow-up care, medications, Prescriptions given X 1. 07:56 Patient left the ED. kc6 Signatures: Bindu Bass RN RN jl7 Shari Chester MD MD sp3 Yamile Collins RN RN kc6 Camila Cruz 5
== END 2023-03-22 07:56 | disposition home or self-care (01) ==
LOC: ER 07:02
DX: H65.02 Acute serous otitis media, left ear (principal); Z88.0 Allergy status to penicillin
CPT/HCPCS: 99283

== ENCOUNTER 2023-05-14 05:28 | Emergency (ER) | payer OTHER ==
--- OUTSIDE RECORDS SUMMARY | 2023-05-14 05:31 | XMS REPORT | Continuity of Care Document ---
:1975 Author Organization [facility] t Address [address] [place] [address] [place] [address] Care Team Providers Name Role Phone DOCTOR UNASSIGNED, NO NAME Attending Clinician Unavailable Rajan Sommer DO Attending Clinician Cassidy Vitale MD Attending Clinician REN CHIN Attending Clinician Unavailable ANA LEMUS Attending Clinician Unavailable ANA LEMUS Attending Clinician Unavailable KEARA COLON Attending Clinician Unavailable LEEANN GUADALUPE Admitting Clinician Unavailable REN CHIN Admitting Clinician Unavailable ANA LEMUS Admitting Clinician Unavailable KEARA COLNO Admitting Clinician Unavailable Problems This patient has no known problems. Allergies, Adverse Reactions, Alerts Allergy Allergy Status Severity Reaction(s) Onset Inactive Treating Comm ents Source Name Type Date Date Clinician PENICILL Drug Active Unknown-Cmnt Un brendan INS Class 8-29 ity of 00:00: [address] Medications This patient has no known medications. Procedures This patient has no known procedures. Encounters Start End Encounter Admission Attending Care Care Encounter Source Date/Time Date/Time Type Type Clinicians Facility Department ID 2021-05-10 Emergency [facility] [id number] Univers 17:39:57 ity [facility] 2021-05-10 Emergency [facility] [id number] Univers 17:39:53 ity of [facility] 2008-02-12 Inpatient P DOCTOR [facility] [place] [id number] Univers 00:00:00 UNASSIGNED, 7 ity of NO [facility] 2020-11-13 2020-11-13 Emergency , [facility] [id number] 21:32:00 22:27:00 Rajan Lindquist [id number] [place] [id number] [place] [id number] 2020-11-13 2020-11-13 Emergency Iam, [facility] [id number] 20:58:00 21:22:00 Cassidy Lindquist [id number] [place] [id number] [place] [id number] 2018-10-25 2018-10-25 Emergency Paresh CHIN, [facility] ERT [id number] Univers 16:23:34 19:15:00 REN ity [facility] 2008-01-20 2008-01-23 Inpatient ANA SHEFFIELD [facility] [place] [id number] Univers 18:38:00 17:09:00 ANA LEMUS 5 i ty [facility] 2007-12-29 2007-12-29 Outpatient [facility] [id number] Univers 00:00:00 10:35:40 2 ity [facility] 2007-11-14 2007-11-14 Outpatient Kiana ISAIAHKEARA [facility] [place] [id number] Univers 09:47:00 23:59:00 9 ity [facility] 2007-08-21 2007-08-21 Outpatient [facility] [id number] Univers 00:00:00 16:24:31 4 ity of [facility] 2007-08-21 2007-08-21 Outpatient [facility] [id number] Univers 00:00:00 15:13:21 6 ity [facility] 2007-06-30 2007-06-30 Outpatient [facility] [id number] Univers 00:00:00 09:31:22 8 ity of [facility] 2007-06-12 2007-06-12 Outpatient [facility] [id number] Univers 00:00:00 10:23:12 3 ity [facility] 2006-11-17 2006-11-17 Outpatient [facility] [id number] Univers 00:00:00 11:46:32 2 ity [facility] 2006-10-19 2006-10-19 Outpatient [facility] [id number] Univers 00:00:00 [facility]53:[facility] 2006-10[facility]10 2006-10-10 Outpatient [facility] [id number] Univers 00:00:00 14:07:32 8 [facility] Results This patient has no known results.
[2023-05-14 06:34] LABS: Absolute Lymphocytes (CBC) 0.6 K/uL (0.7-4.9); Hematocrit 35.4 % (36.0-45.0); Lymphocytes % 15.6 % (15.3-44.8); MCV 87.3 fL (80-100); MPV 7.9 fL (7.6-11.3); Platelets 175 thou/uL (152-406); RBC Red Blood Cell Count 4.06 M/uL (3.86-4.86)
[2023-05-14] MEDS ORDERED: ONDANSETRON 4 MG/2 ML VIAL ONE (06:39)
[2023-05-14] MEDS ORDERED: KETOROLAC 30 MG/ML INJ ONE (06:39)
[2023-05-14] MEDS ORDERED: NA CHLORIDE 0.9% 1,000 ML ONE (06:39)
[2023-05-14 06:50] LABS: Albumin 3.8 g/dL (3.4-5.0); Bilirubin Total 0.6 mg/dL (0.2-1.0); Potassium 3.7 mEq/L (3.5-5.1); Protein, Total 7.4 g/dL (6.4-8.2); Troponin High Sensitivity 4.9 pg/mL (<58.9)
--- NOTE | 2023-05-14 07:37 | RAD REPORT ---
EXAM DESCRIPTION: CTAbdomen Pelvis W Contrast - 05/14/2023 7:24 am CLINICAL HISTORY: ABD PAIN COMPARISON: Abdomen Pelvis W Contrast dated 07/13/2021; Abdomen Pelvis W Contrast dated 02/12/2021 TECHNIQUE: CT of the abdomen and pelvis was performed. All CT scans are performed using dose optimization technique as appropriate and may include automated exposure control or mA/KV adjustment according to patient size. FINDINGS: Lower chest: No acute abnormality. Liver: Several low-density liver lesions are again identified which are unchanged and benign. Biliary: No biliary ductal dilatation. Stomach: No significant focal abnormality. Duodenum: No significant focal abnormality. Pancreas: No significant abnormality. Spleen: No significant abnormality. Adrenal: No suspicious lesions. Kidney/ureter: No hydronephrosis. No renal calculi. Retroperitoneum: No retroperitoneal adenopathy. Vascular: No aneurysm. Bowel: No significant focal abnormality. Normal appendix. Peritoneum: No ascites or free air. Bladder: Grossly unremarkable. Reproductive: No adnexal masses. Bones: No acute fracture. Other: n/a IMPRESSION: No acute intra-abdominal or pelvic finding. No urinary tract calculi. Normal appendix .
--- NOTE | 2023-05-14 07:38 | RAD REPORT ---
EXAM DESCRIPTION: RAD - Chest Single View - 05/14/2023 6:48 am CLINICAL HISTORY: CHEST PAIN COMPARISON: Chest Pa And Lat (2 Views) dated 03/08/2021; Chest Single View dated 02/25/2021; Chest Pa And Lat (2 Views) dated 04/29/2019 FINDINGS: Lines: None. Lungs: No evidence of edema or pneumonia. Pleural: No significant pleural effusions or pneumothorax. Cardiac: The heart size is within normal limits. Mediastinum: Within normal limits. Bones: No acute fractures. Other: None IMPRESSION: No acute cardiopulmonary disease.
--- NOTE | 2023-05-14 07:48 | ER ---
Nurse's Notes [facility] Name: Yazmin Monzon Age: 48 yrs Sex: Female : 1975 Arrival Date: 05/14/2023 Time: 05:28 Bed 7 Private MD: Diagnosis: Fever, unspecified;Acute upper respiratory infection, unspecified Presentation: 05/14 06:10 Chief complaint: Patient states: about 2 nights ago I was talking in my sleep vc1 complaining my stomach was hurting now I feel miserable. I have body aches, a headache, my chest hurts when I sneeze and my lower back hurts. Coronavirus screen: Vaccine status: Patient reports being unvaccinated. Client denies travel out of the [place] in the last 14 days. fever, headache, nausea, Client presents with at least one sign or symptom that may indicate coronavirus-19. Ebola Screen: Patient negative for fever greater than or equal to 101.5 degrees Fahrenheit, and additional compatible Ebola Virus Disease symptoms Patient denies exposure to infectious person. Patient denies travel to an Ebola-affected area in the 21 days before illness onset. No symptoms or risks identified at this time. Initial Sepsis Screen: Does the patient meet any 2 criteria? HR > 90 bpm. No. Patient's initial sepsis screen is negative. Does the patient have a suspected source of infection? No. Patient's initial sepsis screen is negative. Risk Assessment: Do you want to hurt yourself or someone else? Patient reports no desire to harm self or others. Onset of symptoms was May 11, 2023. 06:10 Method Of Arrival: Ambulatory vc1 06:10 Acuity: GEORGETTE 3 vc1 Triage Assessment: 06:13 General: Appears in no apparent distress. uncomfortable, ill, Behavior is calm, vc1 cooperative, appropriate for age. Pain: Complains of pain in face, low back area, chest, abdomen, right foot and left foot. EENT: Nares with drainage noted Reports nasal congestion. Neuro: Level of Consciousness is awake, alert, obeys commands, Oriented to person, place, time, situation, Appropriate for age. Cardiovascular: No deficits noted. Respiratory: Airway is patent Respiratory effort is even, unlabored, Respiratory pattern is regular, symmetrical. GI: Reports lower abdominal pain, upper abdominal pain, nausea. GI: Abd is soft Abdomen is tender to palpation X 4 quads. : No deficits noted. No signs and/or symptoms were reported regarding the genitourinary system. Derm: No deficits noted. No signs and/or symptoms reported regarding the dermatologic system. Musculoskeletal: No deficits noted. No signs and/or symptoms reported regarding the musculoskeletal system. 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 - Social history:: Smoking status: Patient denies any tobacco usage or history of. - Family history:: not pertinent. Screenin:[address] [facility] ED Fall Risk Assessment (Adult) History of falling in the last 3 months, vc1 including since admission No falls in past 3 months (0 pts) Confusion or Disorientation No (0 pts) Intoxicated or Sedated No (0 pts) Impaired Gait No (0 pts) Mobility Assist Device Used No (0 pt) Altered Elimination No (0 pt) Score/Fall Risk Level 0 - 2 = Low Risk Oriented to surroundings, Maintained a safe environment, Educated pt \T\ family on fall prevention, incl call for assistance when getting out of bed. Abuse screen: Denies threats or abuse. Nutritional screening: No deficits noted. Tuberculosis screening: No symptoms or risk factors identified. Vital Signs: 06:10 BP 142 / 81; Pulse 105; Resp 20; Temp 99.3; Pulse Ox 100% ; Weight 77.11 kg; Height 5 vc1 ft. 10 in. ; 06:10 Body Mass Index 24.39 (77.11 kg, 177.8 cm) vc1 ED Course: 05:31 Patient arrived in ED. jj6 05:38 Gael Ayala MD is Attending Physician. rt 06:13 Triage completed. vc1 06:15 Arm band placed on left wrist. vc1 06:16 Patient has correct armband on for positive identification. Bed in low position. Call vc1 light in reach. Pulse ox on. NIBP on. 06:22 Inserted saline lock: 20 gauge in right antecubital area, using aseptic technique. rv Blood collected. 06:50 Chest Single View XRAY In Process Unspecified. EDMS 07:02 Attending Physician role handed off by Gael Ayala MD rn 07:02 Nish Correa MD is Attending Physician. rn 07:26 CT Abd/Pelvis - IV Contrast Only In Process Unspecified. EDMS Administered Medications: 06:30 Drug: Ketorolac IVP 15 mg IVP once Route: IVP; Site: right antecubital; rv 06:30 Drug: NS 0.9% IV 1000 ml IV at 1 bolus Per protocol; 1000 mL bolus Route: IV; Rate: 1 rv bolus; Site: right antecubital; 06:30 Drug: Ondansetron IVP 4 mg IVP once; over 2 minutes Route: IVP; Site: right antecubital;rv Medication: 06:16 VIS not applicable for this client. vc1 Outcome: 07:47 Discharge ordered by . rn 08:17 Patient left the ED. Signatures: Dispatcher [employer] EDMS Nish Correa MD MD rn Baxter, Heather, RN RN Osman More RN RN Lyly Wells jj6 Adelaida Braun RN RN vc1 Gael Ayala MD MD rt
--- NOTE | 2023-05-14 07:48 | EDPHYS ---
Physician Documentation [facility] Name: Yazmin Monzon Age: 48 yrs Sex: Female : 1975 Arrival Date: 05/14/2023 Time: 05:28 Bed 7 Private MD: ED Physician Nish Correa HPI: 05/14 06:30 This 48 yrs old Female presents to ER via Ambulatory with complaints of Cough, Sore rt Throat, Congestion, General Weakness, Nausea. 06:33 Patient presents to the ED with cough, congestion, abdominal pain and generalized rt malaise for the past 2 days. Patient reports a chest pain, worse with coughing. Denies shortness of breath. Denies other acute complaints at this time, symptoms are moderate in severity, no other aggravating alleviating factors.. VP PLATFORMS: 06:15 LMP N/A - tubal ligation, Not vc1 Historical: - Allergies: 06:13 PENICILLINS; vc1 - PMHx: 06:13 Back pain; chronic back pain; Endometrosis; Hypertensive disorder; vc1 - PSHx: 06:13 tubal ligation; vc1 - Immunization history:: Client reports having NOT received the Covid vaccine. - Social history:: Smoking status: Patient denies any tobacco usage or history of. - Family history:: not pertinent. ROS: 06:36 MS/Extremity: Negative for injury and deformity, Skin: Negative for injury, rash, and rt discoloration, Neuro: Negative for headache, weakness, numbness, tingling, and seizure, Psych: Negative for depression, anxiety, suicide ideation, homicidal ideation, and hallucinations, 06:36 Constitutional: Positive for body aches, malaise, 06:36 ENT: Positive for rhinorrhea, sore throat, 06:36 Cardiovascular: Positive for chest pain, Negative for edema, 06:36 Respiratory: Positive for cough, shortness of breath, 06:36 Abdomen/GI: Positive for abdominal pain, nausea, Exam: 06:36 Constitutional: This is a well developed, well nourished patient who is awake, alert, rt and in no acute distress. Head/Face: Normocephalic, atraumatic. Chest/axilla: Normal chest wall appearance and motion. Nontender with no deformity. No lesions are appreciated. Cardiovascular: Regular rate and rhythm with a normal S1 and S2. No gallops, murmurs, or rubs. Normal PMI, no JVD. No pulse deficits. Respiratory: Lungs have equal breath sounds bilaterally, clear to auscultation and percussion. No rales, rhonchi or wheezes noted. No increased work of breathing, no retractions or nasal flaring. Skin: Warm, dry with normal turgor. Normal color with no rashes, no lesions, and no evidence of cellulitis. MS/ Extremity: Pulses equal, no cyanosis. Neurovascular intact. Full, normal range of motion. Neuro: Awake and alert, GCS 15, oriented to person, place, time, and situation. Cranial nerves II-XII grossly intact. Motor strength 5/5 in all extremities. Sensory grossly intact. Cerebellar exam normal. Normal gait. Psych: Awake, alert, with orientation to person, place and time. Behavior, mood, and affect are within normal limits. 06:36 ENT: Mild posterior pharyngeal erythema without exudates or tonsillar hypertrophy, moist mucous membranes. 06:36 Abdomen/GI: Tenderness diffusely, mild guarding, no rebound, no abdominal distention, Vital Signs: 06:10 BP 142 / 81; Pulse 105; Resp 20; Temp 99.3; Pulse Ox 100% ; Weight 77.11 kg; Height 5 vc1 ft. 10 in. ; 06:10 Body Mass Index 24.39 (77.11 kg, 177.8 cm) vc1 MDM: 06:04 Patient medically screened. rt 07:44 Differential Diagnosis: Bronchitis Influenza Upper Respiratory Infection Pharyngitis rn Viral Syndrome. Data reviewed: vital signs, nurses notes, lab test result(s), radiologic studies, CT scan, plain films, and as a result, I will discharge patient. 07:46 Counseling: I had a detailed discussion with the patient and/or guardian regarding the rn historical points, exam findings, and any diagnostic results supporting the discharge/admit diagnosis, lab results, radiology results, the need for outpatient follow up, to return to the emergency department if symptoms worsen or persist or if there are any questions or concerns that arise at home. Response to treatment: the patient's symptoms have mildly improved after treatment, and as a result, I will discharge patient. Special discussion: I discussed with the patient/guardian in detail that at this point there is no indication for admission to the hospital. It is understood, however, that if the symptoms persist or worsen the patient needs to return immediately for re-evaluation. ED course: Patient signed out to me by Dr. Ayala. Plan was to DC home if CT abdomen and pelvis were negative. He thought patient was going to have the flu but flu negative thus the expanded work-up. Patient feels better, will DC home with antibiotics given no definitive viral source identified at this time.. 05/14 06:10 Order name: Influenza Screen (a \T\ B); Complete Time: 06:50 rt 05/14 06:10 Order name: CBC with Diff; Complete Time: 08:13 rt 05/14 06:10 Order name: CMP; Complete Time: 06:50 rt 05/14 06:10 Order name: Lipase; Complete Time: 06:50 rt 05/14 06:10 Order name: Troponin High Sensitivity; Complete Time: 06:50 rt 05/14 08:11 Order name: CBC Smear Scan; Complete Time: 08:13 EDMS 05/14 06:10 Order name: CT Abd/Pelvis - IV Contrast Only; Complete Time: 07:40 rt 05/14 06:10 Order name: Chest Single View XRAY; Complete Time: 07:40 rt 05/14 06:10 Order name: EKG; Complete Time: 06:11 rt 05/14 06:10 Order name: EKG - Nurse/Tech; Complete Time: 07:37 rt Administered Medications: 06:30 Drug: Ketorolac IVP 15 mg IVP once Route: IVP; Site: right antecubital; rv 06:30 Drug: NS 0.9% IV 1000 ml IV at 1 bolus Per protocol; 1000 mL bolus Route: IV; Rate: 1 rv bolus; Site: right antecubital; 06:30 Drug: Ondansetron IVP 4 mg IVP once; over 2 minutes Route: IVP; Site: right antecubital;rv Disposition Summary: 05/14/23 07:47 Discharge Ordered Notes: Location: Home rn Problem: new rn Symptoms: have improved rn Condition: Stable rn Diagnosis - Fever, unspecified rn - Acute upper respiratory infection, unspecified rn Followup: rn - With: Private Physician - When: As needed - Reason: Recheck today's complaints, Re-evaluation by your physician Discharge Instructions: - Discharge Summary Sheet rn - Fever, Adult rn - Upper Respiratory Infection, Adult rn Forms: - Medication Reconciliation Form rn - Thank You Letter rn - Antibiotic pharmacy 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 Day 2, 3, 4 , 5 take one (1) tablet once daily.; 6 tablet; Refills: 0, Product Selection Permitted Signatures: Dispatcher [employer] EDNish Hutchison MD MD rn Vicente, Ronaldo, RN RN rv Adelaida Braun RN RN vc1 Gael Ayala MD MD rt
[2023-05-14 08:10] LABS: White Blood Cell Scan OK (OK)
[2023-05-14 08:11] LABS: Blood Morphology Comment NOT SEEN (NOT SEEN); Platelet Estimate ADEQ
[2023-05-14 08:30] VITALS: BP 142/81; TEMP 99.3; O2SAT 100
== END 2023-05-14 08:17 | disposition home or self-care (01) ==
LOC: ER 05:28
DX: J06.9 Acute upper respiratory infection, unspecified (principal); I10 Essential (primary) hypertension; Z88.0 Allergy status to penicillin
CPT/HCPCS: 85025; 36415; 84484; 83690; 80053; 87804 ×2; 74177; 71045; 96375; 96374; 99284; Q9967; J2405; J7030

== ENCOUNTER → 2023-08-05 | Emergency (ER) | payer OTHER ==
[~2023-08-05] MED LIST: IBUPROFEN 400 MG TAB ONE; dexAMETHasone 10 MG/ML VIAL ONE
--- OUTSIDE RECORDS SUMMARY | 2023-08-05 22:45 | XMS REPORT | Continuity of Care Document ---
Author Name Unknown Address [address] [facility] [place] [address] [facility] thconnect Address [address] [facility] [place] [address] Care Team Providers Care Relationship Consultant Name Role Phone DOCTOR UNASSIGNED, NO NAME Attending Clinician Rajan Trejo DO Attending Clinician [phone] Cassidy Vitale MD Attending Clinician [phone] REN CHIN Attending Clinician Unavailable ANA LEMUS Attending Clinician Unavailable ANA LEMUS Attending Clinician Unavailable KEARA COLON Attending Clinician Unavailab LEEANN Wilson Admitting Clinician Unavaila REN Wilkinson Admitting Clinician Unavailable ANA LEMUS Admitting Clinician Unavailable KEARA COLON Admitting Clinician Unavailab aquiles Allergies, Adverse Reactions, Alerts Allergy Name Allergy Type Status Severity Reaction(s) Onset Date Inactive Date Treating Clinician Comments Source [facility] Drug Class Active Unknown-Cmnt 03-08 00:00: 00 [facility] Encounters Start Date/Time End Date/Time Encounter Type Admission Type Attending Clinicians Care Facility Care Department Encounter ID Source 2021-05-10 17:39:57 Emergency [facility] [id number] [facility] 2021-05-10 17:39:53 Emergency [facility] [id number] [facility] 2008-02-12 00:00:00 Inpatient P DOCTOR UNASSIGNED, NO [facility] [id number] [facility] 2020-11-13 21:32:00 2020-11-13 22:27:00 Emergency Rajan Sommer [facility] [id number] 2020-11-13 20:58:00 2020-11-13 21:22:00 Emergency Cassidy Vitale [facility] [id number] 2018-10-25 16:23:34 2018-10-25 19:15:00 Emergency REN BETANCOURT [facility] ERT [id number] [facility] 2008-01-20 18:38:00 2008-01-23 17:09:00 Inpatient ANA SHEFFIELD NICOLE [facility] [id number] [facility] 2007-12-29 00:00:00 2007-12-29 10:35:40 Outpatient [facility] [id number] [facility] 2007-11-14 09:47:00 2007-11-14 23:59:00 Outpatient KEARA ROJO [facility] [id number] [facility] 2007-08-21 00:00:00 2007-08-21 16:24:31 Outpatient [facility] [id number] [facility] 2007-08-21 00:00:00 2007-08-21 15:13:21 Outpatient [facility] [id number] [facility] 2007-06-30 00:00:00 2007-06-30 09:31:22 Outpatient [facility] [id number] [facility] 2007-06-12 00:00:00 2007-06-12 10:23:12 Outpatient [facility] [id number] [facility] 2006-11-17 00:00:00 2006-11-17 11:46:32 Outpatient [facility] [id number] [facility] 2006-10-19 00:00:00 2006-10-19 13:53:51 Outpatient [facility] [id number] [facility] 2006-10-10 00:00:00 2006-10-10 14:07:32 Outpatient [facility] [id number] [facility]
--- NOTE | 2023-08-05 23:41 | ER ---
Nurse's Notes [facility] Name: Yazmin Monzon Age: 48 yrs Sex: Female : 1975 Arrival Date: 08/05/2023 Time: 22:42 Bed DX3 Private MD: Diagnosis: Streptococcal pharyngitis Presentation: 08/05 23:00 Chief complaint: Patient states: sore throat started this morning, both sides are rv swelling, denies fever/n/v. painful to swallow even with water. Coronavirus screen: At this time, the client does not indicate any symptoms associated with coronavirus-19. Ebola Screen: No symptoms or risks identified at this time. Initial Sepsis Screen: Does the patient meet any 2 criteria? No. Patient's initial sepsis screen is negative. Does the patient have a suspected source of infection? No. Patient's initial sepsis screen is negative. Risk Assessment: Do you want to hurt yourself or someone else? Patient reports no desire to harm self or others. Onset of symptoms was August 05, 2023. 23:00 Method Of Arrival: Ambulatory rv 23:00 Acuity: GEORGETTE 4 rv Triage Assessment: 23:02 General: Appears comfortable, Behavior is calm, cooperative. Pain: Complains of pain in rv throat. EENT: Throat is reddened. Neuro: Level of Consciousness is awake, alert, obeys commands, Oriented to person, place, time, situation. Cardiovascular: Capillary refill < 3 seconds Patient's skin is warm and dry. Respiratory: Airway is patent Respiratory effort is even, unlabored. GI: No signs and/or symptoms were reported involving the gastrointestinal system. : No signs and/or symptoms were reported regarding the genitourinary system. Derm: Skin is intact. Historical: - Allergies: 23:02 PENICILLINS; rv - Home Meds: 23:02 None [Active]; rv - PMHx: 23:02 Back pain; chronic back pain; Endometrosis; Hypertensive disorder; rv - PSHx: 23:02 tubal ligation; rv - Immunization history:: Adult Immunizations up to date. - Social history:: Smoking status: Patient denies any tobacco usage or history of. Screenin:56 [facility] ED Fall Risk Assessment (Adult) History of falling in the last 3 months, rv including since admission No falls in past 3 months (0 pts) Score/Fall Risk Level 0 - 2 = Low Risk Oriented to surroundings, Maintained a safe environment, Educated pt \T\ family on fall prevention, incl call for assistance when getting out of bed, Assessed \T\ reinforced patient's understanding of fall precautions. Abuse screen: Denies threats or abuse. Denies injuries from another. Nutritional screening: No deficits noted. Tuberculosis screening: No symptoms or risk factors identified. Assessment: 23:57 Respiratory: Airway is patent Respiratory effort is even, unlabored, Breath sounds are rv clear bilaterally. Vital Signs: 23:00 BP 152 / 95; Pulse 102; Resp 19; Temp 99.5; Pulse Ox 100% ; Weight 80.74 kg; Height 5 rv ft. 10 in. ; Pain 7/10; 23:57 BP 141 / 86; Pulse 89; Resp 18; Temp 98.7; Pulse Ox 99% on R/A; rv 23:00 Body Mass Index 25.54 (80.74 kg, 177.8 cm) rv 23:00 Pain Scale: Adult rv ED Course: 22:52 Patient arrived in ED. ag3 22:57 Seamus Dale PA is PHCP. cp 22:57 Seamus Salmon MD is Attending Physician. cp 23:02 Triage completed. rv 23:02 Arm band placed on right wrist. rv 23:56 Patient has correct armband on for positive identification. Client placed on continuous rv cardiac and pulse oximetry monitoring. NIBP monitoring applied. 23:56 No provider procedures requiring assistance completed. Patient did not have IV access rv during this emergency room visit. Administered Medications: 23:55 Drug: Clindamycin PO 300 mg PO once Route: PO; rv 23:56 Follow up: Response: Medication administered at discharge. rv 23:55 Drug: Ibuprofen PO 800 mg PO once Route: PO; rv 23:56 Follow up: Response: Medication administered at discharge. rv 23:55 Drug: Dexamethasone PO 10 mg PO once Route: PO; rv 23:55 Follow up: Response: Medication administered at discharge. rv Medication: 23:56 VIS not applicable for this client. rv Outcome: 23:40 Discharge ordered by . cp 23:56 Discharged to home ambulatory, rv 23:56 Condition: good 23:56 Discharge instructions given to patient, Instructed on discharge instructions, follow up and referral plans. medication usage, Demonstrated understanding of instructions, follow-up care, medications, Prescriptions given X 2, 23:57 Patient left the ED. rv Signatures: Seamus Dale PA PA cp Vicente, Ronaldo, RN RN Frances Frost
--- NOTE | 2023-08-05 23:41 | EDPHYS ---
Physician Documentation [facility] Name: Yazmin Monzon Age: 48 yrs Sex: Female : 1975 Arrival Date: 08/05/2023 Time: 22:42 Bed DX3 Private MD: ED Physician Seamus Salmon HPI: 08/05 23:25 This 48 yrs old Female presents to ER via Ambulatory with complaints of Sore Throat, cp Neck Swelling. 23:25 The patient presents with sore throat. The patient describes throat pain as constant. cp Onset: The symptoms/episode began/occurred this morning. Severity of symptoms: in the emergency department the symptoms are unchanged, despite home interventions. Associated signs and symptoms: Pertinent positives: dysphagia, Pertinent negatives cough, fever. Historical: - Allergies: 23:02 PENICILLINS; rv - Home Meds: 23:02 None [Active]; rv - PMHx: 23:02 Back pain; chronic back pain; Endometrosis; Hypertensive disorder; rv - PSHx: 23:02 tubal ligation; rv - Immunization history:: Adult Immunizations up to date. - Social history:: Smoking status: Patient denies any tobacco usage or history of. ROS: 23:30 Constitutional: Negative for body aches, chills, fever, poor PO intake, cp 23:30 Eyes: Negative for injury, pain, redness, and discharge, cp 23:30 ENT: Positive for difficulty swallowing, sore throat, Negative for drainage from ear(s), ear pain, rhinorrhea, difficulty handling secretions, 23:30 Respiratory: Negative for cough, shortness of breath, wheezing, 23:30 Abdomen/GI: Negative for abdominal pain, vomiting, diarrhea, constipation, 23:30 Neuro: Negative for altered mental status, headache, weakness, 23:30 All other systems are negative, Exam: 23:35 Constitutional: The patient appears in no acute distress, alert, awake, non-toxic, well cp developed, well nourished, 23:35 Head/Face: Normocephalic, atraumatic. cp 23:35 Eyes: Periorbital structures: appear normal, Conjunctiva: normal, no exudate, no injection, Lids and lashes: appear normal, bilaterally, 23:35 ENT: External ear(s): are unremarkable, Ear canal(s): are normal, clear, TM's: bulging, is not appreciated, bilaterally, erythema, is not appreciated, bilaterally, Nose: is normal, Mouth: Lips: moist, Oral mucosa: moist, Posterior pharynx: Airway: no evidence of obstruction, patent, Tonsils: bilaterally enlarged, with erythema, no exudate, erythema, that is marked, exudate, is not appreciated, Voice: is normal, 23:35 Neck: ROM/movement: is normal, is supple, no meningismus, no nuchal rigidity, Lymph nodes: lymphadenopathy is appreciated, anterior cervical nodes, 23:35 Chest/axilla: Inspection: normal, 23:35 Cardiovascular: Rate: tachycardic, 23:35 Respiratory: the patient does not display signs of respiratory distress, Respirations: normal, no use of accessory muscles, no retractions, labored breathing, is not present, Breath sounds: are clear throughout, no decreased breath sounds, no stridor, no wheezing, 23:35 Abdomen/GI: Exam negative for discomfort, distension, guarding, Inspection: abdomen appears normal, Vital Signs: 23:00 BP 152 / 95; Pulse 102; Resp 19; Temp 99.5; Pulse Ox 100% ; Weight 80.74 kg; Height 5 rv ft. 10 in. ; Pain 7/10; 23:57 BP 141 / 86; Pulse 89; Resp 18; Temp 98.7; Pulse Ox 99% on R/A; rv 23:00 Body Mass Index 25.54 (80.74 kg, 177.8 cm) rv 23:00 Pain Scale: Adult rv MDM: 23:04 Patient medically screened. cp 23:40 Data reviewed: vital signs, nurses notes, lab test result(s), and as a result, I will cp discharge patient. 23:40 Differential diagnosis: epiglottitis, group A strep tonsillitis, laryngitis, cp peritonsillar abscess retropharyngeal abcess. I considered the following discharge prescriptions or medication management in the emergency department Medications were administered in the Emergency Department. See MAR. Counseling: I had a detailed discussion with the patient and/or guardian regarding the historical points, exam findings, and any diagnostic results supporting the discharge/admit diagnosis, lab results, to return to the emergency department if symptoms worsen or persist or if there are any questions or concerns that arise at home. 01/26 23:18 Order name: Strep; Complete Time: 23:38 cp 08/05 23:38 Interpretation: Reviewed. cp Administered Medications: 23:55 Drug: Clindamycin PO 300 mg PO once Route: PO; rv 23:56 Follow up: Response: Medication administered at discharge. rv 23:55 Drug: Ibuprofen PO 800 mg PO once Route: PO; rv 23:56 Follow up: Response: Medication administered at discharge. rv 23:55 Drug: Dexamethasone PO 10 mg PO once Route: PO; rv 23:55 Follow up: Response: Medication administered at discharge. rv Disposition Summary: 08/05/23 23:40 Discharge Ordered Notes: Location: Home cp Problem: new cp Symptoms: have improved cp Condition: Stable cp Diagnosis - Streptococcal pharyngitis cp Followup: cp - With: Private Physician - When: 2 - 3 days - Reason: Worsening of condition Discharge Instructions: - Discharge Summary Sheet cp - Strep Throat, Adult cp Forms: - Medication Reconciliation Form cp - Thank You Letter cp - Antibiotic Education cp - Prescription Opioid Use cp - Patient Portal Instructions cp - Leadership Thank You Letter cp Prescriptions: - Clindamycin HCl 300 mg Oral Capsule - take 1 capsule ORAL route every 6 hours for 10 days; 40 capsule; Refills: 0, cp Product Selection Permitted - Ibuprofen 800 mg Oral Tablet - take 1 tablet ORAL route every 8 hours As needed take with food; 30 tablet; cp Refills: 0, Product Selection Permitted Signatures: Dispatcher [employer] Seamus Bernal PA PA cp Osman More, RN RN rv
[2023-08-06 02:42] VITALS: BP 141/86; TEMP 98.7; O2SAT 99
== END ==
LOC: ER 22:42
DX: J02.0 Streptococcal pharyngitis (principal); Z88.0 Allergy status to penicillin
CPT/HCPCS: 87081; J1100

== ENCOUNTER 2024-01-06 10:24 | Emergency (ER) | payer OTHER ==
--- OUTSIDE RECORDS SUMMARY | 2024-01-06 10:27 | XMS REPORT | Continuity of Care Document ---
Author Name Unknown Address [address] [facility] [address] [place] [address] [facility] Address [address] [facility] [address] [place] [address] Care Team Providers Care Mill [employer]ender W[employer] Name Role Phone DOCTOR UNASSIGNED, NO NAME Attending Clinician U Rajan Huston DO Attending Clinician [phone] Cassidy Vitale MD Attending Clinician [phone] REN CHIN Attending Clinician Unavailable ANA LEMUS [...] Drug Class Active Unknown-Cmnt 03-08 00:00: 00 [facility] Encounters Start Date/Time End Date/Time Encounter Type Admission Type Attending Clinicians Care Facility Care Department Encounter ID Source 2021-05-10 17:39:57 Emergency [facility] [id number] [facility] 2021-05-10 17:39:53 Emergency [facility] [id number] [facility] 2008-02-12 00:00:00 Inpatient P DOCTOR UNASSIGNED, NO [facility] [id number] [facility] 2020-11-13 21:32:00 2020-11-13 22:27:00 Emergency Rajan Sommer [facility] [id number] 2020-11-13 20:58:00 2020-11-13 21:22:00 Emergency Cassidy Vitale [facility] [id number] 2018-10-25 16:23:34 2018-10-25 19:15:00 Emergency REN BETANCOURT [facility] [id number] [facility] 2008-01-20 18:38:00 2008-01-23 17:09:00 Inpatient ANA SHEFFIELD NICOLE [facility] [id number] [facility] 2007-12-29 00:00:00 2007-12-29 10:35:40 Outpatient [facility] [id number] [facility] 2007-11-14 09:47:00 2007-11-14 23:59:00 Outpatient KEARA ROJO [facility] [id number] [facility] 2007-08-21 00:00:00 2007-08-21 16:24:31 Outpatient [facility] [id number] [facility] 2007-08-21 00:00:00 2007-08-21 15:13:21 Outpatient [facility] [id number] [facility] 2007-06-30 00:00:00 2007-06-30 09:31:22 Outpatient [facility] [id number] [facility] 2007-06-12 00:00:00 2007-06-12 10:23:12 Outpatient [facility] [id number] [facility] 2006-11-17 00:00:00 2006-11-17 11:46:32 Outpatient [facility] [id number] [facility] 2006-10-19 00:00:00 2006-10-19 13:53:51 Outpatient [facility] [id number] [facility] 2006-10-10 00:00:00 2006-10-10 14:07:32 Outpatient [facility] [id number] [facility]
[2024-01-06] MEDS ORDERED: METHYLPREDNISOLONE 125 MG INJ ONE (10:42)
--- NOTE | 2024-01-06 10:48 | EDPHYS ---
Physician Documentation [facility] Name: Yazmin Monzon Age: 48 yrs Sex: Female : 1975 Arrival Date: 01/06/2024 Time: 10:24 Bed 11 Private MD: ED Physician Nish Correa HPI: 01/05 10:46 This 48 yrs old Female presents to ER via Unassigned with complaints of Poison Malorie. rn 10:46 The patient's rash thought to be caused by Dermatitis Contact allergy. Onset: The rn symptoms/episode began/occurred 2 day(s) ago. Severity of symptoms: At their worst the symptoms were moderate. The patient has experienced a previous episode. Patient reports exposed to poison malorie. Reports rash diffusely and itching. Topical [id number] stuff not resolving problem.. Historical: - Allergies: 11: PENICILLINS; hb - Home Meds: 11: None [Active]; hb - PMHx: 11:01 Back pain; chronic back pain; Endometrosis; Hypertensive disorder; hb - PSHx: 11:01 tubal ligation; hb - Immunization history:: Adult Immunizations up to date. - Infectious Disease History:: Denies. - Family history:: not pertinent. - Social history:: Smoking status: Patient denies any tobacco usage or history of. - Hospitalizations: : No recent hospitalization is reported. ROS: 10:46 Constitutional: Negative for fever, chills, and weight loss, Cardiovascular: Negative rn for chest pain, palpitations, and edema, Respiratory: Negative for shortness of breath, cough, wheezing, and pleuritic chest pain, Abdomen/GI: Negative for abdominal pain, nausea, vomiting, diarrhea, and constipation, Skin: Positive for rash Exam: 10:46 Constitutional: This is a well developed, well nourished patient who is awake, alert, rn and in no acute distress. ENT: No stridor Skin: Diffuse erythematous rash involving trunk/neck/extremities. No bulla. Vital Signs: 10:40 BP 137 / 83; Pulse 88; Resp 16; Temp 97.7; Pulse Ox 100% on R/A; Weight 70.31 kg; hb Height 5 ft. 9 in. ; Pain 0/10; 10:40 Body Mass Index 22.89 (70.31 kg, 175.26 cm) hb 10:40 Pain Scale: Adult hb MDM: 10:26 Patient medically screened. rn 10:46 Differential diagnosis: allergic reaction, poison malorie exposure. Data reviewed: vital rn signs, nurses notes, and as a result, I will discharge patient. Counseling: I had a detailed discussion with the patient and/or guardian regarding the historical points, exam findings, and any diagnostic results supporting the discharge/admit diagnosis, the need for outpatient follow up, to return to the emergency department if symptoms worsen or persist or if there are any questions or concerns that arise at home. Special discussion: I discussed with the patient/guardian in detail that at this point there is no indication for admission to the hospital. It is understood, however, that if the symptoms persist or worsen the patient needs to return immediately for re-evaluation. Administered Medications: 11:00 Drug: MethylPREDNISolone Sodium Succinate IM 125 mg IM once Route: IM; Site: right hb deltoid; Disposition Summary: 01/06/24 10:48 Discharge Ordered Notes: Location: Home rn Problem: new rn Symptoms: are unchanged rn Condition: Stable rn Diagnosis - Allergic contact dermatitis due to plants, except food - Poison malorie rn Followup: rn - With: Private Physician - When: As needed - Reason: Recheck today's complaints, Re-evaluation by your physician Discharge Instructions: - Discharge Summary Sheet rn - Poison Malorie Dermatitis rn Forms: - Medication Reconciliation Form rn - Antibiotic patternmaker helper - Prescription Opioid Use rn - Patient Portal Instructions rn - Leadership Thank You Letter rn Prescriptions: - Medrol (Percy) 4 mg Oral Tablets, Dose Pack - take 1 tablet ORAL route as directed - follow package instructions; 1 packet; rn Refills: 0, Product Selection Permitted Signatures: Nish Correa MD MD rn Baxter, Heather, RN RN
--- NOTE | 2024-01-06 11:03 | ER ---
Nurse's Notes [facility] Name: Yazmin Monzon Age: 48 yrs Sex: Female : 1975 Arrival Date: 01/06/2024 Time: 10:24 Bed 11 Private MD: Diagnosis: Allergic contact dermatitis due to plants, except food-Poison claudy Presentation: 01/05 10:40 Chief complaint: Diffuse itchy rash after poison claudy exposure yesterday. Coronavirus hb screen: At this time, the client does not indicate any symptoms associated with coronavirus-19. Ebola Screen: No symptoms or risks identified at this time. Initial Sepsis Screen: Does the patient meet any 2 criteria? No. Patient's initial sepsis screen is negative. Does the patient have a suspected source of infection? No. Patient's initial sepsis screen is negative. Risk Assessment: Do you want to hurt yourself or someone else? Patient reports no desire to harm self or others. Onset of symptoms was January 05, 2024. 10:40 Method Of Arrival: Ambulatory hb 10:40 Acuity: GEORGETTE 4 hb Triage Assessment: 11:01 General: Appears in no apparent distress. Behavior is calm, cooperative. Pain: Denies hb pain. Neuro: Level of Consciousness is awake, alert, obeys commands, Oriented to person, place, time, situation. Cardiovascular: Patient's skin is warm and dry. Respiratory: Respiratory effort is even, unlabored, Respiratory pattern is regular, symmetrical. Derm: Rash noted that is diffuse red maculopapular rash, worse on arms and trunk. Historical: - Allergies: 11: PENICILLINS; hb - Home Meds: 11: None [Active]; hb - PMHx: 11:01 Back pain; chronic back pain; Endometrosis; Hypertensive disorder; hb - PSHx: 11:01 tubal ligation; hb - Immunization history:: Adult Immunizations up to date. - Infectious Disease History:: Denies. - Family history:: not pertinent. - Social history:: Smoking status: Patient denies any tobacco usage or history of. - Hospitalizations: : No recent hospitalization is reported. Screenin:02 [facility] ED Fall Risk Assessment (Adult) History of falling in the last 3 months, hb including since admission No falls in past 3 months (0 pts) Confusion or Disorientation No (0 pts) Intoxicated or Sedated No (0 pts) Impaired Gait No (0 pts) Mobility Assist Device Used No (0 pt) Altered Elimination No (0 pt) Score/Fall Risk Level 0 - 2 = Low Risk Oriented to surroundings, Maintained a safe environment, Educated pt \T\ family on fall prevention, incl call for assistance when getting out of bed. Abuse screen: Denies threats or abuse. Denies injuries from another. Nutritional screening: No deficits noted. Tuberculosis screening: No symptoms or risk factors identified. Assessment: 11:02 General: See triage assessment . hb Vital Signs: 10:40 BP 137 / 83; Pulse 88; Resp 16; Temp 97.7; Pulse Ox 100% on R/A; Weight 70.31 kg; hb Height 5 ft. 9 in. ; Pain 0/10; 10:40 Body Mass Index 22.89 (70.31 kg, 175.26 cm) hb 10:40 Pain Scale: Adult hb ED Course: 10:25 Patient arrived in ED. mr 10:25 Nish Correa MD is Attending Physician. rn 11:01 Triage completed. hb 11:01 Arm band placed on. hb 11:02 Patient has correct armband on for positive identification. Provided Education on: heat hb precautions, medications . 11:03 No provider procedures requiring assistance completed. Patient did not have IV access hb during this emergency room visit. Administered Medications: 11:00 Drug: MethylPREDNISolone Sodium Succinate IM 125 mg IM once Route: IM; Site: right hb deltoid; Medication: 11:02 VIS not applicable for this client. hb Outcome: 10:48 Discharge ordered by . rn 11:02 Discharged to home ambulatory, 11:02 Condition: stable 11:02 Discharge instructions given to patient, Instructed on discharge instructions, follow up and referral plans. medication usage, Demonstrated understanding of instructions, follow-up care, medications, Prescriptions given X 1, 11:03 Patient left the ED. Signatures: Anuja Castro, Puma Bartholomew mr Nish Correa MD MD rn Baxter, Heather, RN RN hb
[2024-01-06 11:26] VITALS: BP 137/83; TEMP 97.7; O2SAT 100
== END 2024-01-06 11:03 | disposition home or self-care (01) ==
LOC: ER 10:24
DX: L23.7 Allergic contact dermatitis due to plants, except food (principal); Z88.0 Allergy status to penicillin
CPT/HCPCS: 96372; 99284; J2919